=== PATIENT | female | born 1935 | race Caucasian/White ===

== ENCOUNTER 2017-10-29 19:59 | Inpatient (IN) | payer MEDICARE ==
[~2017-10-29 19:59] MED LIST: ISOVUE-370 76%-LOCM 1 ML ONE
[2017-10-29 21:02] LABS: #Eosinphils 0.1 thou/uL (0.0-0.7); #Lymphocytes 1.4 thou/uL (1.20-3.40); #Monocytes 0.7 thou/uL (0.11-0.59); #Neutrophils 8.7 thou/uL (1.40-6.50); %Basophils 0.2 % (0.0-1.0); %Eosinophils 0.7 % (0.0-10.0); %Monocytes 6.1 % (0.0-10.0); Mean Corpuscular HGB CONC 32.5 g/dL (32.0-36.0); Mean Corpuscular Volume 89.2 fl (81.0-99.0); Mean Platelet Volume 7.6 fL (7.4-10.4); Platelet Count 337 thou/uL (130-400); RBC Distribution Width 11.7 % (11.5-14.5); Red Blood Cell (RBC) Count 5.52 mill/uL (4.20-5.40); White Blood Cell (WBC) Count 10.9 thou/uL (4.8-10.8)
[2017-10-29] MEDS ORDERED: Diltiazem 125 MG in Sodium Chloride 0.9% 100 ML IVPB SCH (21:15)
[2017-10-29 21:16] LABS: ALT (SGPT) 17 U/L (8-55); AST (SGOT) 25 U/L (5-34); Albumin 4.9 g/dL (3.4-4.8); Alkaline Phosphatase 136 U/L (40-150); Anion Gap 17 mmol/L (10-20); BUN (Urea Nitrogen) 11 mg/dL (9.8-20.1); Bilirubin, Total 0.4 mg/dL (0.2-1.2); CK (CPK) 46 U/L (29-168); Calc. Creatinine Clearance 0 mL/min (70-130); Calcium 9.7 mg/dL (7.8-10.44); Carbon Dioxide 30 mmol/L (23-31); Chloride 95 mmol/L (98-107); Estimated GFR-MDRD 79; Globulin 4.1 g/dL (2.4-3.5); Glucose 131 mg/dL (83-110); Potassium 3.2 mmol/L (3.5-5.1); Sodium 139 mmol/L (136-145)
[2017-10-29 21:19] LABS: CKMB 0.7 ng/mL (0-6.6); INR-International Normal Ratio 1.6; PTT 31.1 SEC (22.9-36.1); Prothrombin Time 19.7 SEC (12.0-14.7); Troponin I Less than 0.010 ng/mL (< 0.028)
[2017-10-29 21:24] LABS: Bilirubin Negative (Negative); Blood, Urine Negative (Negative); Clarity CLEAR (Clear); Glucose, Urine (Dipstick) Negative (Negative); Leukocyte Negative (Negative); Nitrite Negative (Negative); Protein, Urine (Dipstick) 30 mg/dL (Neg-Trace); Specific Gravity, Urine 1.015 (1.002-1.036); Urobilinogen 0.2 mg/dL (0.2-1.0); pH, Urine 7.5 (5.0-9.0)
[2017-10-29] MEDS ORDERED: Diltiazem 125 MG/25 ML ONE (21:24)
[2017-10-29 21:27] LABS: Bacteria/HPF None Seen HPF (None Seen); Hyaline Casts/LPF 0-3 HYALINE CAST LPF (0-3 Hyaline); RBC/HPF 0-3 HPF (0-3); Squamous Epithelial 0-3 HPF (0-3); WBC/HPF 0-3 HPF (0-3)
--- NOTE | 2017-10-29 21:33 | CT ---
CT OF THE BRAIN WITHOUT CONTRAST: Comparison: None. History: Facial drooping. Technique: Multiple contiguous axial images were obtained in a CT of the brain without contrast. FINDINGS: There is encephalomalacia in the right frontal lobe. There are scattered hypodensities in the subcort ical and periventricular white matter, likely secondary to small vessel ischemic disease. Encephaloma lacia is also seen in the right cerebellar hemisphere. No new large confluent infarction is seen. The re is no evidence of hydrocephalus, intracranial hemorrhage, or extraaxial fluid collection. Post-surgical changes are seen in the right frontal calvarium. The paranasal sinuses and mastoid air cells are well aerated. IMPRESSION: Multifocal areas of encephalomalacia and small vessel ischemic disease without acute intracranial abn ormality. Dr. Rushing notified of the findings at 8:12 p.m. on 10-29-17. POS: [facility]
[2017-10-29] MEDS ORDERED: Aspirin 325 MG TAB ONE (21:42)
--- NOTE | 2017-10-29 21:47 | CT ---
CTA OF THE NECK WITH CONTRAST CTA OF THE HEAD WITH CONTRAST: History: Facial drooping, difficulty speaking. Technique: 1. Multiple contiguous axial images were obtained in a CTA of the neck with contrast. 3D sagittal and coronal MIP reformats were performed. 2. Multiple contiguous axial images were obtained in a CTA of the head with contrast. 3D sagittal and coronal MIP reformats were performed. FINDINGS: CTA NECK: The lung apices are unremarkable. No mucosal abnormality is visualized. No cervical adenopathy is see n. Degenerative changes are seen in the spine. There is atherosclerotic disease in the aortic arch. Both common carotid arteries have a normal origi n from the aortic arch. The subclavian arteries show mild atherosclerotic disease. The common carotid arteries show no significant atherosclerotic disease. There is a moderate calcified plaque in the proximal aspect of both internal carotid arteries. Estima digna stenosis is approximately 60-70% bilaterally per NASCET criteria. This occurs over a length of ap proximately 1.5 cm bilaterally. The distal aspect of the internal carotid artery shows no significant atherosclerotic disease. Both vertebral arteries are patent without significant atherosclerotic disease. CTA HEAD: Moderate diffuse nonfocal atherosclerotic disease is seen in the cavernous portion of the internal ca rotid arteries. The intracranial internal carotid arteries are normal in caliber and branch into norm al appearing anterior and middle cerebral arteries. There is no evidence of aneursysmal dilatation, f ocal stenosis, or occlusion in the anterior circulation. A right posterior communicating artery is se en. Both vertebral arteries, normal appearing basilar artery. The posterior cerebral artery and cerebella r arteries are patent. There is no evidence of aneurysmal dilatation, focal occlusion in the posterio r circulation. IMPRESSION: 1. Approximately 60-70% stenosis of the bilateral internal carotid arteries in the neck. 2. No evidence of occlusion or significant intracranial arterial abnormality. Dr. Blas notified of the findings at 8:36 p.m. on 10-29-17. POS: [facility]
[2017-10-29] MEDS ORDERED: Magnesium Sulfate 2 GM/100 ML BAG ONE (22:22)
[2017-10-29] MEDS ORDERED: Labetalol HCl 100 MG/20 ML VIAL SLOW IVP PRN (22:27)
[2017-10-29] MEDS ORDERED: hydrALAZINE 20 MG/ML VIAL SLOW IVP PRN (22:27)
--- NOTE | 2017-10-29 22:33 | PDOC.FPRHP ---
- History of Present Illness Chief Complaint: Change in mental status History of Present Illness: 82 yo F w/hx of previous CVA, ICH 2/2 fall, HTN, afib, dementia, hld here with complaint by family of change in mental status. Per daughter in law, she had a normal day and was at her baseline A&O x2. When it was time for her evening meds , the daughter in law noticed that she was acting confused. Over the course of a few minutes the patient became less responsive and eventually would not respond to questioning and commands. At baseline pt has no deficits from previous CVA. She can walk, feed herself, and hold a normal conversation. Family denies facial droop, hemiparesis, seizure, LOC. In the ED, initial concern was for CVA or repeat bleed given hx. CT brain and CTA were negative. Although the patient arrived to the ED within the window for TPA, she was not a candidate dt recent hx of ICH. She was aphasic when evaluated by the ED and would make little attempt to follow commands. Upon eval by admitting team, pt was A&O x2 and could cooperate with exam. Also in the ED it was noted pt was in afib w/RVR. She was started on dilt drip and had controlled rate prior to moving to IMCU - Allergies/Adverse Reactions Allergies Allergy/AdvReac Type Severity Reaction Status Date / Time codeine Allergy Verified 10/30/17 01:58 - Home Medications Medication Instructions Recorded Confirmed Type Amlodipine [Norvasc] 1 tab PO DAILY 10/30/17 10/30/17 History Atorvastatin Calcium [Lipitor] 1 tab PO DAILY 10/30/17 10/30/17 History Donepezil HCl 1 tab PO DAILY 10/30/17 10/30/17 History Pantoprazole Sodium 20 mg PO DAILY 10/30/17 10/30/17 History Sotalol HCl [Sotalol] 0.5 tab PO BID 10/30/17 10/30/17 History Warfarin Sodium 1 tab PO SEEPHYS 10/30/17 10/30/17 History levETIRAcetam [Levetiracetam] 1 tab PO BID 10/30/17 10/30/17 History Comments: Warfarin schedule 2mg Mon, Tues, Thurs 1mg Wed, Fri, Sat, Sun All meds per family - History PMHx: CVA ICH HTN afib w/RVR HLD Dementia Seizure PSHx: Unk FHx: Unk Social: Previous smoker, unknown duration Denies etoh or recreational drugs - Review of Systems ROS unobtainable: other (Provided by pt and family) General: denies: fever/chills, weight/appetite/sleep changes Eyes: denies: vision changes ENT: denies: nasal congestion Respiratory: denies: cough, congestion, shortness of breath Cardiovascular: denies: chest pain, palpitation, edema Gastrointestinal: denies: nausea, vomiting, diarrhea, constipation Genitourinary: denies: incontinence, dysuria Skin: denies: rashes, lesions Musculoskeletal: denies: pain, tenderness, swelling Neurological: reports: other (decreased metal status). denies: numbness, syncope, seizure, weakness Psychological: denies: anxiety, depression - Vital signs BP: 104/69 HR: 65 RR: 13 Tmax: 98.4 Pox: 99% on 2L Wt: 55 kg FMR H&P: Results - Labs Result Diagrams: 10/30/17 02:19 10/30/17 02:19 Lab results: WBC 10.9 thou/uL (4.8-10.8) H 10/29/17 20:51 Hgb 16.0 g/dL (12.0-16.0) 10/29/17 20:51 Hct 49.2 % (36.0-47.0) H 10/29/17 20:51 MCV 89.2 fl (81.0-99.0) 10/29/17 20:51 Plt Count 337 thou/uL (130-400) 10/29/17 20:51 Neutrophils % 80.0 % (42.0-75.0) H 10/29/17 20:51 Sodium 139 mmol/L (136-145) 10/29/17 20:51 Potassium 3.2 mmol/L (3.5-5.1) L 10/29/17 20:51 Chloride 95 mmol/L (98-107) L 10/29/17 20:51 Carbon Dioxide 30 mmol/L (23-31) 10/29/17 20:51 BUN 11 mg/dL (9.8-20.1) 10/29/17 20:51 Creatinine 0.71 mg/dL (0.6-1.1) 10/29/17 20:51 Glucose 131 mg/dL (83-110) H 10/29/17 20:51 Calcium 9.7 mg/dL (7.8-10.44) 10/29/17 20:51 Total Bilirubin 0.4 mg/dL (0.2-1.2) 10/29/17 20:51 AST 25 U/L (5-34) 10/29/17 20:51 ALT 17 U/L (8-55) 10/29/17 20:51 Alkaline Phosphatase 136 U/L (40-150) 10/29/17 20:51 Creatine Kinase 46 U/L (29-168) 10/29/17 20:51 CK-MB (CK-2) 0.7 ng/mL (0-6.6) 10/29/17 20:51 Serum Total Protein 9.0 g/dL (6.0-8.3) H 10/29/17 20:51 Albumin 4.9 g/dL (3.4-4.8) H 10/29/17 20:51 Urine Ketones Negative mg/dL (Negative) 10/29/17 21:12 Urine Blood Negative (Negative) 10/29/17 21:12 Urine Nitrite Negative (Negative) 10/29/17 21:12 Ur Leukocyte Esterase Negative (Negative) 10/29/17 21:12 Urine RBC 0-3 HPF (0-3) 10/29/17 21:12 Urine WBC 0-3 HPF (0-3) 10/29/17 21:12 Ur Squamous Epith Cells 0-3 HPF (0-3) 10/29/17 21:12 Urine Bacteria None Seen HPF (None Seen) 10/29/17 21:12 - EKG Interpretation EKG: Afib w/RVR. No ST changes. - Radiology Interpretation CT scan - head Status: report reviewed by me (multifocal areas of encephalomalacia. no acute abnormality CTA: 60-70% stenosis ICA. No acute abnormality) Chest x-ray Status: report reviewed by me (cardiomegally. Small L pleural effusion.) FMR H&P: A/P - Problem List (1) TIA (transient ischemic attack) Current Visit: No Status: Acute Priority: High (2) Altered mental status Current Visit: No Status: Acute Priority: High Code(s): R41.82 - ALTERED MENTAL STATUS, UNSPECIFIED Qualifiers: Altered mental status type: delirium Qualified Code(s): R41.0 - Disorientation, unspecified (3) Atrial fibrillation with RVR Current Visit: No Status: Acute Priority: High Code(s): I48.91 - UNSPECIFIED ATRIAL FIBRILLATION (4) Dementia Current Visit: No Status: Chronic Priority: Medium Code(s): F03.90 - UNSPECIFIED DEMENTIA WITHOUT BEHAVIORAL DISTURBANCE Qualifiers: Dementia type: unspecified type (5) HLD (hyperlipidemia) Current Visit: No Status: Chronic Priority: Low Code(s): E78.5 - HYPERLIPIDEMIA, UNSPECIFIED (6) HTN (hypertension) Current Visit: No Status: Chronic Priority: Medium Code(s): I10 - ESSENTIAL (PRIMARY) HYPERTENSION (7) Focal seizure Current Visit: No Status: Acute - Plan Altered mental status - most likely associated with TIA vs CVA - work to rule out infectious or endocrine source. CXR pending. TSH pending. Keppra level pending - Low concern for toxic or neoplastic source - admit to stroke - consult neuro in am, ST, PT, OT - hold warfarin - increase lipitor to 40 mg daily - permissive HTN - MRI in am afib w/RVR - continue dilt drip. pt likely a poor candidate for rhythm control. Work to control w/PO meds HTN - permissive HTN for 24 hours, then restart home meds Dementia - continue home meds Seizures - unclear when these started. Continue home keppra - keppra level pending - mri as above HLD - start statin as above Code DNR Diet Regular pending ST eval PPx SCD Dispo: Guarded. Pt is currently stable, continue to work to ID source of change. Likely LOS 48-72 hours FMR H&P: Upper Level - Pertinent history CC: Impaired speech 82 year old white female with a past medical history of CVA and seizures presents for impaired speech starting today at approximately 1700 to 1730. She was at home with her son's significant other who states Mrs. Kessler was sitting at the table when she noticed she was sitting very still and not talking. When she asked Mrs. Kessler to talk to her, she responded, and she was able to walk maybe 20 feet when asked. Shortly after sitting down, she seemed to stop moving again per son's SO. Family noticed no facial droop, unilateral weakness, or tonic clonic activity. They state she has been in her normal state of health recently. PMHx - CVA x4 in the last 18 months, history of intracranial bleed, seizure disorder, dementia (A&O x person and place at baseline per family), HLD, respiratory failure, hypertension, and atrial fibrillation with rapid ventricular response - Pertinent findings Vital Signs: Tmax 98.3 RR 22 HR 114 BP 147/75 O2 sats 99% on 1L Weight 54.4 Physical Exam: General: NAD, AAxOx person and place Eyes: EOMI, Right pupil fixed (chronic per family), nonicteric, conjunctiva clear ENT: MMM, oropharynx clear CV: Tachycardic, irregular rhythm., no m/r/g. Pulses full and equal in all 4 extremities Respiratory: CTA-B, no WRR. Nonlabored Abdomen: NT, ND, no guarding/rebound Extremities: No edema, equal movements bilaterally Skin: No rash or ulcer, no palpable lesions Neuro: CN II-XII intact. No focal deficits. Muscle strength 5/5 in all 4 extremities - Plan Date/Time: 10/29/172231 I, Jose Giordano DO, have evaluated this patient and agree with findings/plan as outlined by college intern resident. Pertinent changes/additions are listed here. 82 year old white female presents for: 1) Suspected TIA vs CVA - Admit to stroke. Etiology unclear, but differential includes TIA/CVA and seizures, no evidence of infection at this time, and will need further workup. Admit to stroke unit. Consult PT, ST, OT, and neuro. Plan for permissive hypertension. Patient is oriented to person and place which is her baseline. MRI in the morning 2)Atrial fibrillation with RVR - On Diltiazem drip. Place on telemetry. Patient has chronic atrial fibrillation 3) Focal seizure - When I went back into the ER room to get her med list after initially seeing her, she did appear to be having a focal seizure of the left lower arm. Dr. Blas ordered Ativan and iv Keppra. Seizure precautions. Check Keppra level. MRI tomorrow. Consult neuro 4) History of seizures - iv Keppra. Seizure precautions 5) HLD - Home statin when cleared for po 6) Dementia - Home donepezil and memantine when cleared for po 7) Code Status - DNR-DNI. I spoke with the patient's son regarding her code status. He stated she is DNR-DNI as they want nothing invasive done and for her to be allowed to pass peacefully if her condition advances to that point. Dr. Camargo was present for this conversation. Attending Addendum - Attending Addendum Date/Time: 10/30/17 3893 I personally evaluated the patient and discussed the management with Dr. Camargo on 10/29/17. I agree with the History, Examination, Assessment and Plan documented above with any addition or exceptions noted below- 82 yo F w/hx of previous CVA, ICH 2 /2 fall, HTN, afib, dementia here with complaint by family of change in mental status. Per daughter in law, she had a normal day and was at her baseline A&O x2. When it was time for her evening meds, the daughter in law noticed that she was acting confused. Over the course of a few minutes the patient became less responsive and eventually would not respond to questioning and commands. At baseline pt has no deficits from previous CVA. She can walk, feed herself, and hold a normal conversation. Family denies facial droop, hemiparesis, seizure, LOC. In ER, patient initially was aphasic but then was able to speak normally and answer questions. While in ER, patient noted to have focal seizure involving her left arm, given ativan. Patient then noted to be less responsive and had weakness on left side. Repeat CT head performed and negative for acute findings. PMH/PSH/All/Meds/SH reviewed and agree with resident's documentation. Afebrile P125 BP 137/71 Exam repeated by me- patient arouses to painful stimuli but drifts back to sleep. No tremors/seizures noted. Withdraws extremities to pain. A/P: 1) Altered MS- possible TIA/CVA versus seizure- initial CT scans negative for acute findings. PT/OT/ST consults. Consult neurology. 2) A-fib with RVR- continue diltiazem drip. 3) Seizure- continue keppra .
[2017-10-29] MEDS ORDERED: Magnesium Sulfate 3 GM in Sodium Chloride 0.9% 100 ML IVPB SCH (22:45)
[2017-10-29] MEDS ORDERED: Potassium Chloride 40 MEQ in Sodium Chloride 0.9% 500 ML IVPB SCH (22:45)
[2017-10-29] MEDS ORDERED: Lorazepam 2 MG/ML VIAL ONE (22:46)
--- NOTE | 2017-10-29 23:02 | RAD ---
SINGLE VIEW OF THE CHEST: Comparison: None. History: Difficulty talking and speaking for 1.5 hours prior to arrival. FINDINGS: Single view of the chest shows an enlarged cardiomediastinal silhouette with atherosclerotic calcific ations in the aorta. There is no evidence of consolidation. There may be a small left pleural effusio n. A calcified granuloma projects over the right lateral thorax. IMPRESSION: 1. Cardiomegaly. 2. Possible small left pleural effusion. POS: [facility]
[2017-10-29] MEDS ORDERED: levETIRAcetam In NaCl (Iso-Os) 1,000 MG in Premix Bag 1 BAG IVPB SCH (23:15)
[2017-10-30 00:05] LABS: Troponin I 0.012 ng/mL (< 0.028)
[2017-10-30 01:58] VITALS: BMI 19.6
[2017-10-30 02:39] LABS: Hemoglobin 14.7 g/dL (12.0-16.0); Mean Corpuscular HGB CONC 33.2 g/dL (32.0-36.0); Mean Corpuscular Hemoglobin 29.7 pg (27.0-31.0); Mean Corpuscular Volume 89.4 fl (81.0-99.0); Mean Platelet Volume 7.6 fL (7.4-10.4); Platelet Count 284 thou/uL (130-400); RBC Distribution Width 11.7 % (11.5-14.5); Red Blood Cell (RBC) Count 4.95 mill/uL (4.20-5.40); White Blood Cell (WBC) Count 11.5 thou/uL (4.8-10.8)
[2017-10-30 02:40] LABS: Band 7 % (5-11); Lymphocytes 9 % (21-51); MDiff Complete? YES; Monocytes 6 % (0-10); Neutrophil 78 % (42-75)
[2017-10-30] MEDS: Sodium Chloride 0.9% 1,000 ML IV SCH ×2 (02:41→12:19)
[2017-10-30 02:46] LABS: Troponin I 0.016 ng/mL (< 0.028)
[2017-10-30 02:50] LABS: Anion Gap 15 mmol/L (10-20); BUN (Urea Nitrogen) 10 mg/dL (9.8-20.1); Calc. Creatinine Clearance 56 mL/min (70-130); Carbon Dioxide 30 mmol/L (23-31); Cardiac Risk 2.8 (Less than 4.5); Chloride 97 mmol/L (98-107); Cholesterol 162 mg/dl (< 200 Desired); Estimated GFR-MDRD 90; Glucose 134 mg/dL (83-110); HDL Cholesterol 57 mg/dL (>60 Neg Risk); LDL Cholesterol, Calculated 95 mg/dL; Potassium 3.2 mmol/L (3.5-5.1); Sodium 139 mmol/L (136-145); Triglycerides 48 mg/dL (Less than 150)
--- NOTE | 2017-10-30 06:06 | CT ---
CT BRAIN WITHOUT CONTRAST: HISTORY: Altered mental status with initial improvement in symptoms but these symptoms are now worsening. Lef t hand weakness on exam. COMPARISON: 10/29/2017 at 8:09 p.m. TECHNIQUE: Multiple contiguous axial images were obtained in a CT of the brain without contrast. FINDINGS: There are scattered hypodensities in the subcortical and periventricular white matter, likely seconda ry to small vessel ischemic disease. There are stable areas of encephalomalacia in the brain. There is no evidence of hydrocephalus, intracranial hemorrhage, or extraaxial fluid collections. Post surgical changes are seen in the right frontal calvarium. The paranasal sinuses and mastoid air cells are well aerated. IMPRESSION: 1. No evidence of acute intracranial abnormality. 2. Small vessel ischemic disease. POS: [facility]
--- NOTE | 2017-10-30 07:06 | PDOC.FM ---
- Subjective Subjective: No adverse events overnight. Pt follows commands. Alert and oriented to person only. - Objective MAR Reviewed: Yes Vital Signs & Weight: Vital Signs (12 hours) Temp Pulse Resp BP BP Pulse Ox 10/30/17 02:00 98.3 F 88 16 110/40 L 98 10/30/17 01:30 98.3 F 81 16 100/54 L 98 Weight Weight 51.982 kg Result Diagrams: 10/30/17 02:19 10/30/17 02:19 <Crys Fong C - Last Filed: 10/30/17 10:40> - Objective Vital Signs & Weight: Vital Signs (12 hours) Temp Pulse Resp BP BP BP BP 10/30/17 11:01 97.9 F 79 17 129/64 10/30/17 08:05 121/65 10/30/17 07:40 98.5 F 88 16 10/30/17 07:23 98.5 F 88 16 125/60 10/30/17 05:00 98.3 F 84 16 118/63 10/30/17 02:30 98.3 F 88 16 10/30/17 02:00 98.3 F 88 16 110/40 L 10/30/17 01:30 98.3 F 81 16 100/54 L Pulse Ox Pulse Ox 10/30/17 11:01 98 10/30/17 08:05 98 10/30/17 07:40 100 10/30/17 07:23 99 10/30/17 05:00 98 10/30/17 02:30 98 10/30/17 02:00 98 10/30/17 01:30 98 Weight Weight 51.982 kg I&O: 10/29/17 10/30/17 10/31/17 06:59 06:59 06:59 Intake Total 620 Output Total 350 Balance 270 Result Diagrams: 10/30/17 02:19 10/30/17 02:19 <Leobardo Stallworth - Last Filed: 10/30/17 11:48> Phys Exam - Physical Examination Constitutional: NAD HEENT: oral pharynx no lesions Respiratory: clear to auscultation bilateral Cardiovascular: RRR Gastrointestinal: soft, non-tender Musculoskeletal: no edema Neurological: moves all 4 limbs Psychiatric: normal affect <Crys Fong - Last Filed: 10/30/17 10:40> Dx/Plan (1) Atrial fibrillation with RVR Code(s): I48.91 - UNSPECIFIED ATRIAL FIBRILLATION Status: Acute (2) Focal seizure Status: Acute (3) TIA (transient ischemic attack) Status: Acute (4) Dementia Code(s): F03.90 - UNSPECIFIED DEMENTIA WITHOUT BEHAVIORAL DISTURBANCE Status: Chronic QualifierTitle: Dementia type: unspecified type (5) HLD (hyperlipidemia) Code(s): E78.5 - HYPERLIPIDEMIA, UNSPECIFIED Status: Chronic (6) HTN (hypertension) Code(s): I10 - ESSENTIAL (PRIMARY) HYPERTENSION Status: Chronic - Plan Plan: TIA vs CVA - CT head negative - CT neck shows bilateral stenosis of ICA - MRI pending - neuro consulted and recommendations are appreciated. - PT/OT/Speech recs pending. Focal seizure - pt received 1g of Keppra and Ativan in ED. - will consult neuro for recommendations. Atrial fibrillation with RVR - Currently on dilt drip at 7.5. Will attempt to wean down to lowest possible rate while pt is NPO. - Consider increasing Sotalol for rate control when pt passes swallow study Hypertension - BP stable. - will restart home antihypertensives when pt passes swallow study Hyperlipidemia -will restart Lipitor Seizure disorder - will restart home Keppra when pt passes swallow study. Disposition: stable, will transfer to stroke unit. <Crys Fong - Last Filed: 10/30/17 10:40> Attending Addendum - Attending Addendum Date/Time: 10/30/17 [id number] I personally evaluated the patient and discussed the management with Dr. Fong. I agree with the History, Examination, Assessment and Plan documented above with any addition or exceptions noted below. Patient currently A&Ox1 but very alert, unsure of what her baseline mentation is. She is not requiring IMCU care and will transfer to stroke unit. Last NIH scale was 5, and I see not evidence of major facial droop on my exam. Await MRI and Neuro recs. She continues on Dilt drip and we will work to attempt transition back to oral Sotalol once she is safe to swallow as cleared by [employer]. Continue Keppra for seizure ppx as she has a history of that. <Leobardo Stallworth - Last Filed: 10/30/17 11:48>
[2017-10-30] MEDS ORDERED: Sotalol HCl 80 MG TAB PO SCH (09:00)
[2017-10-30] MEDS ORDERED: levETIRAcetam 500 MG TAB PO SCH (09:00)
--- NOTE | 2017-10-30 09:11 | CON ---
DATE OF CONSULTATION: 10/30/2017 REASON FOR CONSULTATION: [facility] [place]. Seventy minutes time was spent on this patient, of the time greater than 50% was spent either with the patient or on the patient's floor. HISTORY OF PRESENT ILLNESS: The patient is an 82-year-old female who presented with altered mental status. It was thought that she might have a new stroke. Apparently, CT of the brain, CT angiogram of the brain were negative. She also had atrial fibrillation with rapid ventricular response and was placed on a Cardizem drip. PAST MEDICAL HISTORY: 1. Stroke. 2. Intracranial hemorrhage. 3. Hypertension. 4. Atrial fibrillation. 5. Hyperlipidemia. 6. Dementia. 7. Seizure. PAST SURGICAL HISTORY: None. FAMILY MEDICAL HISTORY: Unknown. SOCIAL HISTORY: Previous smoker, does not consume alcohol or use illicit drugs. MEDICATIONS: Warfarin, amlodipine, atorvastatin, Aricept, Protonix, sotalol, Levetiracetam. REVIEW OF SYSTEMS: Unobtainable secondary to altered mental status. PHYSICAL EXAMINATION: VITAL SIGNS: Temperature 98.5, pulse 88, respiration 16, O2 sat 100%, blood pressure 120/60. HEENT: Unremarkable. NECK: No JVD. LUNGS: Clear without wheezing. CARDIAC: S1, S2 irregularly irregular. ABDOMEN: Soft, nontender. EXTREMITIES: No clubbing, cyanosis, or edema. LABORATORY DATA: White blood cell count 11.5, hematocrit 44.2, platelet count 294,000. Sodium 139, potassium 3.2, chloride 97, CO2 30, BUN 10, creatinine 0.6 , glucose 134. Chest x-ray shows no acute mass, effusion. The x-ray is turned. ASSESSMENT: 1. Altered mental status - probably multifactorial. 2. Atrial fibrillation. 3. History of previous stroke. PLAN: She can probably be transferred out to the telemetry unit or stroke unit. Further workup consisting of an MRI will take place today in regards to the stroke, no acute pulmonary needs identified. 70 min time was spent on this consult. Of that time, >50% was spent with the patient and/or on the patients unit. [facility]
[2017-10-30] MEDS ORDERED: Enoxaparin Sodium 40 MG/0.4 ML SYRINGE SC SCH (11:45)
[2017-10-30] MEDS: Donepezil HCl 10 MG TAB PO SCH (11:58)
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
--- NOTE | 2017-10-30 19:24 | CON ---
DATE OF CONSULTATION: 10/30/2017 CONSULTING PHYSICIAN: Hospitalist Service. IMPRESSION: 1. 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 2. Prior ischemic injury in the right hemisphere. 3. Atrial fibrillation. 4. Mild dementia. PLAN: 1. Increase Keppra to 1000 mg twice a day. 2. Office followup. HISTORY OF PRESENT ILLNESS: Ms. Kessler is an 82-year-old white female who lives at home independentl y. She has some family that lives with her. She was witnessed to have a blank staring episode where she would not respond. She does not really recall what happened to her. She awoke from the event w ithout any new focal deficit. She had no significant residual neurologic deficits from her prior rig ht hemispheric strokes. Her MRI of the brain showed evidence of the old strokes, but nothing acute. CTA showed bilateral 60%-70% carotid stenosis. EKG showed atrial fibrillation. She has been on Cou madin prior to admission. She was on Keppra 750 mg twice a day. PAST MEDICAL HISTORY: As noted above. ALLERGIES: CODEINE. SOCIAL HISTORY: No tobacco or alcohol use. FAMILY HISTORY: Noncontributory. REVIEW OF SYSTEMS: No complaint of headache, nausea, vomiting, vertigo, chest pain, shortness of venice ath, or confusion. PHYSICAL EXAMINATION: GENERAL: Somewhat frail appearing elderly lady, lying in bed, in no distress. VITAL SIGNS: Stable. She is afebrile. HEENT: Pupils equal. Conjunctivae clear. Oropharynx clear. Cranium normocephalic and atraumatic. NECK: Supple. EXTREMITIES: No cyanosis, clubbing or edema. NEUROLOGIC: She is alert and cooperative. Her speech is fluent and clear. Cranial nerves II-XII ar e intact. Motor exam showed a very subtle left-sided weakness on rapid alternating movements. Sensa tion was intact to light touch. Cerebellar testing showed normal finger to nose movements. Plantar response was downgoing on the right and upgoing on the left. SUMMARY: This is an elderly lady with a known prior cortical stroke and secondary seizures. The danielle nts that transpired consistent with focal seizure. There is no evidence of an acute change on MRI. I will be happy to follow up with her as an outpatient.
[2017-10-30] MEDS ORDERED: Atorvastatin Calcium 40 MG TAB PO SCH (21:00)
[2017-10-30] MEDS: levETIRAcetam 500 MG TAB PO SCH (21:23)
[2017-10-30] MEDS: Sotalol HCl 80 MG TAB PO SCH (21:23)
[2017-10-31] MEDS ORDERED: Warfarin Sodium 2 MG TAB PO SCH ×2 (08:00→08:30)
--- NOTE | 2017-10-31 08:54 | PDOC.FM ---
- Subjective Subjective: Patient doing well with no complaints. Pt noted to have several pauses on telemetry this morning. She is asymptomatic. - Objective MAR Reviewed: Yes Vital Signs & Weight: Vital Signs (12 hours) Temp Pulse Resp BP BP Pulse Ox 10/31/17 07:30 97.6 F 95 17 130/79 90 L 10/31/17 05:12 95 10/31/17 04:00 99.0 F 18 104/58 L 94 L 10/31/17 00:00 98.5 F 61 19 130/73 99 10/30/17 21:23 98.9 F 55 L 18 127/59 L 127/59 L 96 Weight Admit Weight 51.71 kg Weight 51.982 kg I&O: 10/30/17 10/31/17 11/01/17 06:59 06:59 06:59 Intake Total 620 1203.7 Output Total 350 1025 Balance 270 178.7 Result Diagrams: 10/30/17 02:19 10/30/17 02:19 <Crys Fong C - Last Filed: 10/31/17 08:50> - Objective Vital Signs & Weight: Vital Signs (12 hours) Temp Pulse Resp BP Pulse Ox 10/31/17 09:23 95 10/31/17 09:09 95 10/31/17 08:00 97.6 F 95 17 10/31/17 07:30 97.6 F 95 17 130/79 90 L 10/31/17 05:12 95 10/31/17 04:00 99.0 F 18 104/58 L 94 L 10/31/17 00:00 98.5 F 61 19 130/73 99 Weight Admit Weight 51.71 kg Weight 51.982 kg I&O: 10/30/17 10/31/17 11/01/17 06:59 06:59 06:59 Intake Total 620 1203.7 Output Total 350 1025 Balance 270 178.7 Result Diagrams: 10/30/17 02:19 10/30/17 02:19 <Leobardo Stallworth R - Last Filed: 10/31/17 10:07> Phys Exam - Physical Examination Constitutional: NAD Respiratory: clear to auscultation bilateral Cardiovascular: RRR Gastrointestinal: soft, non-tender Musculoskeletal: no edema Neurological: moves all 4 limbs Psychiatric: normal affect <Crys Fong - Last Filed: 10/31/17 08:50> Dx/Plan (1) Atrial fibrillation with RVR Code(s): I48.91 - UNSPECIFIED ATRIAL FIBRILLATION Status: Resolved (2) Focal seizure Status: Acute (3) TIA (transient ischemic attack) Status: Acute (4) Dementia Code(s): F03.90 - UNSPECIFIED DEMENTIA WITHOUT BEHAVIORAL DISTURBANCE Status: Chronic QualifierTitle: Dementia type: unspecified type (5) HLD (hyperlipidemia) Code(s): E78.5 - HYPERLIPIDEMIA, UNSPECIFIED Status: Chronic (6) HTN (hypertension) Code(s): I10 - ESSENTIAL (PRIMARY) HYPERTENSION Status: Chronic - Plan Plan: 1. Atrial flutter with RVR. - Sotalol increased to 80 mg yesterday. - she alternates between sinus rhythm and flutter and has had several 2-3 second pauses. - will discuss current Sotalol regimen with Cardiology. - Continue Warfarin. 2. Focal Seizure - No further seizure episodes - Continue Keppra - no evidence of acute stroke on CT/MRI 3. Hypertension - BP stable. 4. Dementia - Pt is back to baseline - Continue Aricept. 5. Hyperlipidemia - continue Atorvastatin Disposition: stable, awaiting cardiology recommendations. <Crys Fong - Last Filed: 10/31/17 08:50> Attending Addendum - Attending Addendum Date/Time: 10/31/17 1005 I personally evaluated the patient and discussed the management with Dr. Fong. I agree with the History, Examination, Assessment and Plan documented above with any addition or exceptions noted below. Patient back to baseline from mentation standpoint. MRI negative for new infarct , and Neuro believes event was seizure related. Increased Keppra. Patient better rate controlled on Sotalol 80mg BID, but began having 2-3sec pauses overnight. Will back off dosage and consult EP as she is not a candidate for higher medication dose but is not controlled on the lower dose. She is now in Aflutter with rates in the 120s. Resume warfarin. <Leobardo Stallworth - Last Filed: 10/31/17 10:07>
[2017-10-31] MEDS ORDERED: Atorvastatin Calcium 20 MG TAB PO SCH ×2 (09:00)
[2017-10-31] MEDS ORDERED: Amlodipine 10 MG TAB PO SCH ×2 (09:00)
[2017-10-31] MEDS ORDERED: Sotalol HCl 80 MG TAB PO SCH (09:00)
[2017-10-31 09:02] LABS: INR-International Normal Ratio 1.4; PTT 29.7 SEC (22.9-36.1); Prothrombin Time 17.9 SEC (12.0-14.7)
[2017-10-31] MEDS: levETIRAcetam 500 MG TAB PO SCH (09:08)
[2017-10-31] MEDS: Donepezil HCl 10 MG TAB PO SCH (09:09)
[2017-10-31] MEDS ORDERED: Enoxaparin Sodium 40 MG/0.4 ML SYRINGE SC SCH (09:15)
[2017-10-31] MEDS: Sotalol HCl 80 MG TAB PO SCH (09:23)
--- NOTE | 2017-10-31 13:25 | PQF ---
DATE: 10-31-17 ATTN : DR. JOANNE MCNULTY Please exercise your independent, professional judgment in responding to the clarification form. Clinical indicators are provided on the bottom of this form for your review Please check appropriate box(s): [ ] Encephalopathy: Type: [ ] Acute [ ] Subacute [ ] Chronic Etiology: [ ] Metabolic [ ] Toxic [ ] Transient Alteration of Awareness [ X ] Other diagnosis _focal seizure with post-ictal state [ ] Unable to determine In addition, please specify: Present on Admission (POA): [ X ] Yes [ ] No [ ] Unable to determine For continuity of documentation, please document condition throughout progress notes and discharge summary. Thank You. CLINICAL INDICATORS - SIGNS / SYMPTOMS / LABS ER DOCUMENTATION: ER CAVEAT INVOKED DUE TO THE PATIENT WITH MENTAL STATUS CHANGES. ER DX: CVA/ISCHEMIC STROKE, A FIB W RVR, AMS, SEIZURE. H&P: DAUGHTER IN LAW NOTICED THAT SHE WAS ACTING CONFUSED, OVER THE COURSE OF A FEW MINUTES THE PATIENT BECAME LESS RESPONSIVE AND EVENTUALLY WOULD NOT RESPOND TO QUESTIONING AND COMMANDS. AT BASELINE PT HAS NO DEFICITS FROM PREVIOUS CVA. SHE CAN WALK, FEED HERSELF, AND HOLD NORMAL CONVERSATION. SHE WAS APHASIC WHEN EVALUATED BY THE ED AND WOULD MAKE LITTLE ATTEMPT TO FOLLOW COMMANDS. PN 10-30-17: ALERT AND ORIENTED TO PERSON ONLY. RISK FACTORS: H&P: HX OF CVA, ICH 2/2 FALL, HTN, A FIB, DEMENTIA, TREATMENTS: NEURO CONSULT O2 USE (ER) POTASSIUM, MAGNESIUM (MAR) IVF (This form is maintained as a part of the permanent medical record) 2014 [employer]. All Rights Reserved [facility]
[2017-10-31 15:40] VITALS: BP 108/59; TEMP 98.5
--- NOTE | 2017-10-31 15:57 | PDOC.CTH ---
<Wen Lujan - Last Filed: 10/31/17 16:04> Cardiology Progress Note - Subjective The pt seen and examined. She is agitated and pulling her gown and sheath. per family, the pt does not wish any intervention, medical treatment only. - Objective Vital Signs Temp Pulse Resp BP Pulse Ox 10/31/17 15:37 98.5 F 105 H 14 108/59 L 90 L 10/31/17 11:30 98.6 F 60 24 H 122/56 L 97 10/31/17 09:23 95 10/31/17 09:09 95 10/31/17 08:00 97.6 F 95 17 10/31/17 07:30 97.6 F 95 17 130/79 90 L 10/31/17 05:12 95 10/31/17 04:00 99.0 F 18 104/58 L 94 L Admit Weight 114 lb Weight 114 lb 9.6 oz 10/30/17 10/31/17 11/01/17 06:59 06:59 06:59 Intake Total 620 1203.7 Output Total 350 1025 Balance 270 178.7 - Physical Examination General/Neuro: other: (confused) Lungs: CTA, other: Heart: other: (irregular) Abdomen: soft Extremities: other: (No edema) - Telemetry Telemetry Rhythm: Afib 110-150s - Labs Result Diagrams: 10/30/17 02:19 10/30/17 02:19 Troponin/CKMB CK-MB (CK-2) 0.7 ng/mL (0-6.6) 10/29/17 20:51 Troponin I 0.016 ng/mL (< 0.028) 10/30/17 02:19 - Assessment/Plan 1. Afib with RVR - Cont. Afib with HR 110-150s with Sotalol 40mg BID and pauses with SR, longest was 4.7 sec today; Family refused any interventions, such as PM placement for pauses after the conversation about > 3 sec pauses causes brain cell damage. On Coumadin. 2. AMS - changed due to seizure; No evidence of acute stroke on CT/MRI; On Keppra; managed by PCP 3. HTN - stable 4. Hyperlipidemia - On statin 5. Hypokalemia - 40mEq IV was given on 10/30/17; Recheck BMP tomorrow 6. Dementia - Pt is back to baseline per family; On Aricept. MAR reviewed Review of Systems - Review of Systems Constitutional: reports: see HPI EENTM: reports: see HPI Respiratory: reports: see HPI Cardiac (ROS): reports: see HPI ABD/GI: reports: see HPI : reports: see HPI <Dieter Ledesma - Last Filed: 10/31/17 17:36> Cardiology Progress Note - Objective Vital Signs Temp Pulse Resp BP Pulse Ox 10/31/17 15:37 98.5 F 105 H 14 108/59 L 90 L 10/31/17 11:30 98.6 F 60 24 H 122/56 L 97 10/31/17 09:23 95 10/31/17 09:09 95 10/31/17 08:00 97.6 F 95 17 10/31/17 07:30 97.6 F 95 17 130/79 90 L Admit Weight 114 lb Weight 114 lb 9.6 oz 10/30/17 10/31/17 11/01/17 06:59 06:59 06:59 Intake Total 620 1203.7 Output Total 350 1025 Balance 270 178.7 - Labs Result Diagrams: 10/30/17 02:19 10/30/17 02:19 Troponin/CKMB CK-MB (CK-2) 0.7 ng/mL (0-6.6) 10/29/17 20:51 Troponin I 0.016 ng/mL (< 0.028) 10/30/17 02:19 - Assessment/Plan Pt. seen and eval. by me. EP has already visited with the pt. also. She nor the family want any intervention. She is DNR. They want to go home. I suggest we decrease the sotolol back to 40 mg bid, continue coumadin . I suggested they f/ u with the coumadin clinic. I agree with the A/P by the LITHOGRAPHIC PLATEMAKER. I will sign off. Will be happy to see the pt. as an outpt.
[2017-10-31] MEDS ORDERED: Warfarin Sodium 1 MG TAB PO SCH (17:00)
--- NOTE | 2017-10-31 17:22 | PDOC.EVN ---
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 I advised him that without definitive treatment, there is nothing preventing rapid ventricular rate from re-occuring. Family expressed understanding. We will discharge patient today with Sotalol 40 mg BID. They were instructed to follow-up with a primary care physician and road machine operator as soon as possible. Pt currently has subtherapeutic INR, instructed to follow-up with Coumadin clinic tomorrow as well.
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
--- NOTE | 2017-10-31 23:06 | DIS-2 ---
DATE OF ADMISSION: 10/29/2017 DATE OF DISCHARGE: 10/31/2017 ADMITTING ATTENDING: Brandy Ma M.D. DISCHARGE ATTENDING: Leobardo Stallworth M.D. RESIDENT: Crys Fong M.D., PGY2. CONSULTATIONS: 1. Geraldo Bone M.D. 2. Zarina Ledesma M.D. 3. Benjamin Brownlee M.D. PROCEDURES: None. PRIMARY DIAGNOSES: 1. Focal seizure. 2. Tachybrady syndrome. 3. Atrial fibrillation with tachycardia with a ventricular rate. SECONDARY DIAGNOSES: 1. History of seizure disorder. 2. History of cerebrovascular accident. 3. Hypertension. 4. Hyperlipidemia. 5. Dementia. DISCHARGE MEDICATIONS: 1. Keppra 750 mg 1 tab p.o. b.i.d. 2. Warfarin 2 mg on Monday and ; 1 mg on Monday, Monday, Monday, Monday, Monday. 3. Sotalol 40 mg p.o. b.i.d. 4. Pantoprazole 20 mg p.o. daily. 5. Donepezil 5 mg p.o. daily. 6. Amlodipine 10 mg p.o. daily. 7. Atorvastatin 40 mg p.o. at bedtime. DISCONTINUED MEDICATIONS: Atorvastatin 40 mg p.o. at bedtime. HISTORY OF PRESENT ILLNESS AND HOSPITAL COURSE: The patient is an 82-year-old female with a history of atrial fibrillation who presented to the emergency department with a change in baseline mental sta tus. There was concern for acute CVA. Neuro imaging essentially ruled out acute CVA. The patient w as noted to have a focal seizure in the emergency department. It is thought that her change in basel ine level of functioning was related to this per Dr. Bone who was consulted. Regarding the patien t's atrial fibrillation with rapid ventricular rate, she was started on a diltiazem drip in the emerg ency department and this was continued. Her sotalol dose was initially increased; however, the day, she was noted to have 2-3 second pauses on telemetry monitoring. Per Cardiology recommenda tions, her sotalol dose was decreased back to 40 mg. Electrophysiology recommended a pacemaker which patient's family adamantly were opposed to. They were informed that without definitive treatment wi th pacemaker that there is actually nothing preventing rapid ventricular rate from reoccurring. They expressed understanding. At this point, the patient was discharged with her home dose of sotalol 40 mg b.i.d. They were instructed to follow up to establish care with a primary care provider and noti fy their primary care provider if patient becomes symptomatic with rapid ventricular rate. Patient's INR was subtherapeutic. During her stay, she did receive therapeutic Lovenox. The patient's family is instructed to have her followup with the Coumadin clinic tomorrow to reestablish a therapeutic IN R after discharge. Regarding patient's chronic medical problems, her remainder of her home medicatio ns was restarted. However, given patient's history of CVA, her atorvastatin dose was increased to mo derate intensity. DISPOSITION: Stable. DISCHARGE INSTRUCTIONS: 1. Location: Home. 2. Diet: Heart healthy. 3. Activity: Ad eros. Home health with physical therapy, was ordered as well. 4. Followup: The patient is to follow up with Crys Fong M.D., [facility] in 3-7 days . 5. Tyrone Stone M.D. 6. Geraldo Bone M.D. in 7 to 14 days.
[2017-11-02] MEDS ORDERED: Warfarin Sodium 2 MG TAB PO SCH (17:00)
--- NOTE | 2017-11-05 08:39 | EKG ---
Test Reason : Blood Pressure : / mmHG Vent. Rate : 083 BPM Atrial Rate : 108 BPM P-R Int : 000 ms QRS Dur : 082 ms QT Int : 386 ms P-R-T Axes : 000 -27 037 degrees QTc Int : 453 ms Atrial fibrillation with a competing junctional pacemaker vs atrial flutter Nonspecific ST and T wave abnormality , probably digitalis effect Abnormal ECG Confirmed by MANFRED VIVAS, CINDY ([id number]) on 11/05/2017 8:39:01 AM Referred By: Eva RIVER Confirmed By:CINDY SHEARER MD
--- NOTE | 2017-11-05 08:43 | EKG ---
Test Reason : Blood Pressure : / mmHG Vent. Rate : 092 BPM Atrial Rate : 150 BPM P-R Int : 000 ms QRS Dur : 084 ms QT Int : 384 ms P-R-T Axes : 000 -33 -35 degrees QTc Int : 474 ms Atrial fibrillation vs flutter Left axis deviation Prolonged QT Abnormal ECG Confirmed by MANFRED VIVAS, CINDY ([id number]) on 11/05/2017 8:43:32 AM Referred By: PERICO Confirmed By:CINDY SHEARER MD
== END 2017-10-31 17:56 | disposition home or self-care (01) | DRG 101 ==
LOC: ERS 19:59 → IMCU/EMU 21:51 → 2SE 10-30 14:18
PROVIDERS: ADMIT Family Medicine; ATTEND Family Medicine
DX: G40.109 Localization-related (focal) (partial) symptomatic epilepsy and epileptic syndromes with simple partial seizures, not intractable, without status epilepticus (principal); I48.0 Paroxysmal atrial fibrillation; I49.5 Sick sinus syndrome; F03.90 Unspecified dementia, unspecified severity, without behavioral disturbance, psychotic disturbance, mood disturbance, and anxiety; Z86.73 Personal history of transient ischemic attack (TIA), and cerebral infarction without residual deficits; I10 Essential (primary) hypertension; E78.5 Hyperlipidemia, unspecified; Z79.01 Long term (current) use of anticoagulants; Z87.891 Personal history of nicotine dependence; Z88.5 Allergy status to narcotic agent; E87.6 Hypokalemia; Z66 Do not resuscitate
CPT/HCPCS: 36415; 36416; 70450; 70496; 70498; 70553; 71045; 80048; 80053; 80061; 80177; 81003; 81015; 82550; 82553; 83735; 84443; 84484; 85007; 85025; 85027; 85610; 85730; 93005; 93010; 94760; 96361; 96365; 96367; 96375; 99292; G8978-GP-CM; G8979-GP-CK; G8987-GO-CL; G8988-GO-CJ; G8996-GN-CI; G8997-GN-CI; J1650; J1953; J2060; J3475; J3480; J7050

== ENCOUNTER 2018-01-23 09:22 | Inpatient (IN) | payer MEDICARE ==
[2018-01-23 09:59] LABS: #Lymphocytes 0.7 thou/uL (1.20-3.40); #Monocytes 0.4 thou/uL (0.11-0.59); #Neutrophils 8.7 thou/uL (1.40-6.50); %Eosinophils 0.2 % (0.0-10.0); %Lymphocytes 7.3 % (21.0-51.0); %Monocytes 4.1 % (0.0-10.0); %Neutrophils 88.4 % (42.0-75.0); Hemoglobin 16.8 g/dL (12.0-16.0); Mean Corpuscular HGB CONC 31.6 g/dL (32.0-36.0); Mean Corpuscular Hemoglobin 27.6 pg (27.0-31.0); Mean Corpuscular Volume 87.4 fL (78.0-98.0); Mean Platelet Volume 7.3 fL (7.4-10.4); Platelet Count 321 thou/uL (130-400); RBC Distribution Width 12.6 % (11.5-14.5); Red Blood Cell (RBC) Count 6.08 mill/uL (4.20-5.40); White Blood Cell (WBC) Count 9.8 thou/uL (4.8-10.8)
[2018-01-23 10:01] LABS: Bilirubin Negative (Negative); Blood, Urine Trace (Negative); Clarity CLEAR (Clear); Glucose, Urine (Dipstick) Negative (Negative); Leukocyte Negative (Negative); Nitrite Negative (Negative); Protein, Urine (Dipstick) 30 mg/dL (Neg-Trace); Specific Gravity, Urine 1.008 (1.002-1.036); pH, Urine 7.5 (5.0-9.0)
[2018-01-23 10:04] LABS: Bacteria/HPF None Seen HPF (None Seen); Hyaline Casts/LPF 0-3 HYALINE CAST LPF (0-3 Hyaline); Pathc Cast-AUWi Flag 0.29 (0-2.49); Squamous Epithelial 0-3 HPF (0-3); WBC/HPF 0-3 HPF (0-3)
[2018-01-23 10:24] LABS: CKMB 1.5 ng/mL (0-6.6); Troponin I Less than 0.010 ng/mL (< 0.028)
[2018-01-23 10:31] LABS: ALT (SGPT) 22 U/L (8-55); AST (SGOT) 31 U/L (5-34); Albumin 4.4 g/dL (3.4-4.8); Alkaline Phosphatase 119 U/L (40-150); Anion Gap 22 mmol/L (10-20); BUN (Urea Nitrogen) 10 mg/dL (9.8-20.1); Bilirubin, Total 1.6 mg/dL (0.2-1.2); Calc. Creatinine Clearance 0 mL/min (70-130); Calcium 9.6 mg/dL (7.8-10.44); Carbon Dioxide 32 mmol/L (23-31); Chloride 85 mmol/L (98-107); Estimated GFR-MDRD 83; Globulin 4.6 g/dL (2.4-3.5); Glucose 113 mg/dL (83-110); Potassium 3.1 mmol/L (3.5-5.1); Sodium 136 mmol/L (136-145)
--- NOTE | 2018-01-23 10:34 | CT ---
CT OF THE BRAIN WITHOUT CONTRAST: Date: 01/23/18 INDICATION: History of fall, on blood thinners. COMPARISON: CT of the brain dated 10/29/17 and MRI of the brain dated 10/30/17. FINDINGS: Generalized cerebral and cerebellar atrophy is stable. Chronic ischemic change is similar. Encephalom alacia involving the right frontal lobe and right cerebellar hemisphere is stable. No definite acute infarct, hemorrhage, or hydrocephalus is present. There is prominent left frontal scalp contusion. De fect involving the right superior orbital rim is stable. No definite acute displaced or depressed sku ll fracture is evident. IMPRESSION: 1. No acute intracranial abnormality. 2. Stable areas of encephalomalacia involving the right frontal lobe and right cerebellar hemisphere . 3. Stable generalized cerebral and cerebellar atrophy with chronic small vessel white matter ischemi c change. 4. Prominent left frontal scalp hematoma. POS: [facility]
--- NOTE | 2018-01-23 10:36 | RAD ---
RIGHT HIP 2 VIEWS: Date: 01/23/18 HISTORY: Fall. Right hip injury. FINDINGS: Mild joint space narrowing. Femoral head contour is maintained. No acute fracture or dislocation. Oss eous structures are demineralized. Metallic clip overlies the right inguinal level. IMPRESSION: 1. Mild osteoarthritic changes right hip. No acute osseous abnormalities are demonstrated. 2. Osteoporosis. POS: [facility]
[2018-01-23 10:40] LABS: INR-International Normal Ratio 2.3; PTT 41.6 SEC (22.9-36.1); Prothrombin Time 25.4 SEC (12.0-14.7)
[2018-01-23] MEDS ORDERED: Acetaminophen 325 MG TAB PO PRN (13:26)
--- NOTE | 2018-01-23 13:45 | PDOC.FPRHP ---
- History of Present Illness Chief Complaint: Fall History of Present Illness: Ms. Kessler is a 82 yo F that presented to the ED after an unwitnessed fall this am. She lives with her son and was put to bed last night. This morning she was found on the floor, sleeping at 0830. She was woken up and was confused, with pants lowered, and wet with urine. Patient cannot remember falling. She does remember not being able to get up. After awakening, family said she was completely lucid and at baseline mental status. She has had no changes over the past week. Normal appetite, no fever or sickness. Has been ambulating w/o assistance, though family encourages her to use a walker. A&Ox2 is baseline, history of dementia. Denies headache, UE pain, hip pain. Reports knee pain. Patient takes coumadin. Last INR at end of December was 2.5. ED Course: CT head, EKG, R hip Xray, 500 NS bolus after systolic in 50s - Allergies/Adverse Reactions Allergies Allergy/AdvReac Type Severity Reaction Status Date / Time codeine Allergy Verified 01/23/18 17:37 - Home Medications Medication Instructions Recorded Confirmed Type Amlodipine [Norvasc] 1 tab PO DAILY 10/30/17 01/23/18 History Pantoprazole Sodium 20 mg PO DAILY 10/30/17 01/23/18 History Sotalol HCl [Sotalol] 0.5 tab PO BID 10/30/17 01/23/18 History levETIRAcetam [Levetiracetam] 1 tab PO BID 10/30/17 01/23/18 History Atorvastatin Calcium [Lipitor] 20 mg PO HS 01/23/18 01/23/18 History Donepezil HCl [Aricept] 10 mg PO DAILY 01/23/18 01/23/18 History Warfarin Sodium [Coumadin] 2.5 mg PO ASDIR 01/23/18 01/23/18 History Warfarin Sodium [Coumadin] 5 mg PO ASDIR 01/23/18 01/23/18 History - History PMHx: CVA, HTN, afib w/RVR, HLD, seizure, dementia, previous falls, unknown cancer PSHx: R facial reconstruction, "shortened colon" (1yr ago) FHx:unknown Social: Previous smoker, quit 50 yrs ago. No alcohol or drug use. Lives with son and his girlfriend. PT at home. - Review of Systems General: reports: fatigue. denies: fever/chills, weight/appetite/sleep changes Eyes: denies: eye pain, vision changes ENT: denies: nasal congestion, rhinorrhea Respiratory: denies: cough, shortness of breath Cardiovascular: denies: chest pain, palpitation Gastrointestinal: denies: nausea, vomiting, diarrhea, constipation, abdominal pain Genitourinary: reports: incontinence. denies: dysuria, polyuria Skin: reports: lesions (L forehead hematoma). denies: rashes Musculoskeletal: reports: pain (bilateral knee pain), tenderness Neurological: reports: weakness. denies: numbness Psychological: reports: depression. denies: anxiety - Vital signs BP: 114/75 HR: 99 RR: 18 Tmax: 97.8 Pox: 100% on 2L Wt: 57 kg - Physical Exam Constitutional: NAD, other (A&Ox2) HEENT: TM's clear and intact (R cerumen impaction), grossly normal hearing, MMM , oropharynx clear, other (hematoma on L forehead. L PERRL. R pupil, constricted , fixed, does not react to light.) Neck: supple, other (JVD bilaterally) Heart: RRR, normal S1/S2, no edema Lungs: CTAB, no rales/rhonchi, no wheezing Abdomen: soft, non-tender, bowel sounds present Musculoskeletal: normal structure, normal tone, ROM grossly normal (L knee ROM restricted d/t pain. L knee TTP.) Neurological: no focal deficit, CN II-XII intact, normal sensation Skin: other (superficial abrasion L shoulder) Heme/Lymphatic: no purpura, no petechia Psychiatric: normal mood and affect FMR H&P: Results - Labs Result Diagrams: 01/24/18 05:07 01/24/18 17:01 Lab results: WBC 9.8 thou/uL (4.8-10.8) 01/23/18 09:53 Hgb 16.8 g/dL (12.0-16.0) H 01/23/18 09:53 Hct 53.1 % (36.0-47.0) H 01/23/18 09:53 MCV 87.4 fL (78.0-98.0) 01/23/18 09:53 Plt Count 321 thou/uL (130-400) 01/23/18 09:53 Neutrophils % 88.4 % (42.0-75.0) H 01/23/18 09:53 Sodium 136 mmol/L (136-145) 01/23/18 09:53 Potassium 3.1 mmol/L (3.5-5.1) L 01/23/18 09:53 Chloride 85 mmol/L (98-107) L 01/23/18 09:53 Carbon Dioxide 32 mmol/L (23-31) H 01/23/18 09:53 BUN 10 mg/dL (9.8-20.1) 01/23/18 09:53 Creatinine 0.68 mg/dL (0.6-1.1) 01/23/18 09:53 Glucose 113 mg/dL (83-110) H 01/23/18 09:53 Calcium 9.6 mg/dL (7.8-10.44) 01/23/18 09:53 Total Bilirubin 1.6 mg/dL (0.2-1.2) H 01/23/18 09:53 AST 31 U/L (5-34) 01/23/18 09:53 ALT 22 U/L (8-55) 01/23/18 09:53 Alkaline Phosphatase 119 U/L (40-150) 01/23/18 09:53 Creatine Kinase 103 U/L (29-168) 01/23/18 09:53 CK-MB (CK-2) 1.5 ng/mL (0-6.6) 01/23/18 09:53 Serum Total Protein 9.0 g/dL (6.0-8.3) H 01/23/18 09:53 Albumin 4.4 g/dL (3.4-4.8) 01/23/18 09:53 Urine Ketones 40 mg/dL (Negative) H 01/23/18 09:50 Urine Blood Trace (Negative) H 01/23/18 09:50 Urine Nitrite Negative (Negative) 01/23/18 09:50 Ur Leukocyte Esterase Negative (Negative) 01/23/18 09:50 Urine RBC 4-6 HPF (0-3) 01/23/18 09:50 Urine WBC 0-3 HPF (0-3) 01/23/18 09:50 Ur Squamous Epith Cells 0-3 HPF (0-3) 01/23/18 09:50 Urine Bacteria None Seen HPF (None Seen) 01/23/18 09:50 - EKG Interpretation EKG: a fib w/RVR, L axis deviation, rate 104, [id number], St & T wave abnormality. possibe age undetermined infarct - Radiology Interpretation CT scan - head Status: report reviewed by me (no acute intracranial abnormality. chronic, small vessel ischemic changes. prominent L front scalp hematoma.) Other Status: report reviewed by me (R hip Xray: osteoporosis. no fracture) FMR H&P: A/P - Problem List (1) Hypotension Current Visit: Yes Status: Acute (2) Hypokalemia Current Visit: Yes Status: Acute Code(s): E87.6 - HYPOKALEMIA (3) Dementia Current Visit: No Status: Chronic Priority: Medium Code(s): F03.90 - UNSPECIFIED DEMENTIA WITHOUT BEHAVIORAL DISTURBANCE Qualifiers: Dementia type: unspecified type (4) HLD (hyperlipidemia) Current Visit: No Status: Chronic Priority: Low Code(s): E78.5 - HYPERLIPIDEMIA, UNSPECIFIED (5) Atrial fibrillation with RVR Current Visit: No Status: Chronic Priority: High Code(s): I48.91 - UNSPECIFIED ATRIAL FIBRILLATION (6) HTN (hypertension) Current Visit: No Status: Chronic Priority: Medium Code(s): I10 - ESSENTIAL (PRIMARY) HYPERTENSION (7) History of seizure Current Visit: Yes Status: Chronic Code(s): Z87.898 - PERSONAL HISTORY OF OTHER SPECIFIED CONDITIONS - Plan 82 yo F w/ PMH afib w/RVR on coumadin presents after unwitnessed fall at home, found to have hypotension in ER. Hypotension -systolic in the 50s in the ED, given 500 NS bolus and trendelenburg which resolved hypotension, systolic then in 120s -could be contributory to unwitnessed fall -continue to monitor. hold home HTN meds in the meantime. -troponins neg x2 -hold amlodipine. will continue sotalol Fall -unwitnessed, unknown if pt lost consciousness -Ddx includes orthostatic vs afib vs seizure -CT brain neg for acute intracranial abnormality. Prominent frontal scalp hematoma -R hip xray neg for fracture -pending L hip and L knee fracture -UA negative Hypokalemia -3.1 today -will replace and follow BMP A fib w/ RVR, chronic -on coumadin, INR 2.3 today -October 2017 admission, cardiology was consulted and pacemaker placement for SSS was denied by family. Family still is not interested in any invasive procedures or a pacemaker at this time. Will not consult cardiology or EP for this admission unless there is an acute change. -EKG today shows a fib w/RVR, rate 104 HLD -continue home meds Hx of seizure -continue home meds -prolactin ordered Hx of dementia Ppx: SCDs. No GI ppx indicated at this time. Disposition: Stable. Will continue to monitor BP and if pt remains stable will consider discharge tomorrow. FMR H&P: Upper Level - Pertinent history Patient is an 82 year old female with a history of dementia and tachybrady syndrome who was brought to the ED by her son. Patient was found on the ground this morning by her son's girlfriend. She was easily arousable. Per the son's girlfriend, she was slightly more confused in that she did not realize she was on the ground, and was not able to tell how she got there. She complained of left knee pain, but other than that had no complaints. Per her son, she was at her baseline at that time (A&O x 1-2)The patient's home health nurse arrived at the house for routine evaluation and recommended that the patient be brought to the ED for evaluation. On arrival to the ED she had a non-contrast CT of the brain which did not show evidence of intracranial hemorrhage. R. hip X-ray was performed which showed no fracture. ERMD discussed patient with Trauma PA who recommended observation of patient. While in the ED pt was noted to be unresponsive with "sonorous breathing" for a brief period with a heart rate of 30s and a systolic blood pressure in the 50s. She received a 500 cc bolus of fluid and was placed in reverse trendelenburg. As they were preparing to call a code, patient became alert and responsive. HR improved to 90s and systolic BP improved as well. The decision was made to admit patient for further evaluation. Of note, pt was admitted to the hospital in October 2017 for focal seizure and sick sinus syndrome and was treated for atrial fibrillation with RVR. At that time sotalol was increased, but patient began to have pauses noted on telemetry. Cardiology and EP were consulted and both recommended pacemaker placement. Pt's son (who is MPOA) declinend any intervention at that time. - Pertinent findings Vitals BP: 104/73 P: 91 RR:18 T: 97.8 SpO2: 99% on 2L Physical exam: General: alert and oriented x 1 Heart: irregularly irregular rhythm. no murmurs, rubs, or gallops. Lungs: clear to auscultations bilaterally. Abdomen: soft, non-tender; no masses or organomegaly. Extremities: no shortening or external rotation. full ROM on RLE. Pain with movement of her left knee. Neuro: CN II-XII intact grossly; no focal deficits - Plan Date/Time: 01/23/18 1340 I, Crys Fong, have evaluated this patient and agree with findings/plan as outlined by culinary internship resident. Pertinent changes/additions are listed here. 1. Tachybrady syndrome with symptomatic bradyarrhythmia - we will admit patient to telemetry with observation -pt's fall/hypotension may be related to arrhythmia. Discussed with patient' s family that definitive treatment with pacemaker may be of benefit in this situation, however patient's son, who is TIN declined any invasive intervention. - we will continue supportive care with maintenance fluids and monitor telemetry strip overnight. Consider palliative consult in AM. - continue home medications. 2. Left knee pain - will obtain left knee and left hip radiographs. 3. Seizure disorder - continue home meds 4. Dementia - continue home meds Attending Addendum - Attending Addendum Date/Time: 01/24/18 2230 I personally evaluated the patient and discussed the management with Dr. Fong and Dr. Chopra on 01/23/18 @1600 I agree with the History, Examination, Assessment and Plan documented above with any addition or exceptions noted below- 82 yo WF with h/o dementia, a-fib, tachy-kameron syndrome brought to the ER after being found on the floor by family. Family members report that she went to bed last night at usual fortunato and when she went to see her in the morning, the oatient was found on the floor next to the bed. Uncertain how long she had been there. Patient does not recall falling. PMH/PSH/Meds/All reviewed and agree with residents documentation. Afebrile VSS. Exam repeated by me and agree with residents findings including left knee pain with ROM, left frontal scalp hematoma. A/P: 1) Syncope- h/o tachy /kameron syndrome and previously declined pacemaker placement. Discussed again with family and again declined. Will monitor om telemtry. 2) Afib- on anticoagulation; CT brain negative. has superficial scalp hematoma; continue to monitor. 3) left knee pain- will check knee and hip xray to rule out occult fracture.
[2018-01-23 14:00] LABS: Troponin I Less than 0.010 ng/mL (< 0.028)
--- NOTE | 2018-01-23 14:59 | RAD ---
LEFT KNEE 4 VIEWS: Date: 01/23/18 HISTORY: Left knee pain. FINDINGS: Mild joint space narrowing lateral compartment. Moderate tricompartmental osteophytosis. Some synovia l calcification of the suprapatellar bursa. No flow or distention. No acute fracture or dislocation. Prominent calcification over the arterial structures. IMPRESSION: 1. Mild osteoarthritic changes left knee. 2. Atherosclerosis. POS: MARELY
[2018-01-23 16:20] LABS: Troponin I Less than 0.010 ng/mL (< 0.028)
[2018-01-23] MEDS: Sodium Chloride 0.9% 1,000 ML IV SCH (16:22)
--- NOTE | 2018-01-23 17:10 | RAD ---
2 VIEWS LEFT HIP: Date: 01/23/18 INDICATION: Left hip pain. COMPARISON: None. FINDINGS: There is a valgus impacted subcapital left femoral neck fracture. There is diffuse osteopenia. There is heterotopic ossification involving the anterior left hemipelvis. IMPRESSION: Valgus impacted left subcapital femoral neck fracture. POS: MARELY
[2018-01-23] MEDS: levETIRAcetam 500 MG TAB PO SCH (21:05)
[2018-01-23] MEDS: Sotalol HCl 80 MG TAB PO SCH (21:06)
[2018-01-23] MEDS: Atorvastatin Calcium 40 MG TAB PO SCH (21:07)
[2018-01-24] MEDS: Ketorolac Tromethamine 30 MG/ML VIAL IVP SCH ×4 (01:11→18:09)
[2018-01-24] MEDS: Sodium Chloride 0.9% 1,000 ML IV SCH ×2 (02:02→10:52)
--- NOTE | 2018-01-24 03:09 | CON ---
DATE OF CONSULTATION: 01/23/2018 CHIEF COMPLAINT: Left hip pain. HISTORY OF PRESENT ILLNESS: Charlotte is an 82-year-old female in poor health. She fell out of bed last night and was found down this morning by her son. She lives with her son. She ambulates fairly ind ependently. She reports without much assistance. She has had several falls. She was unable to mo e and was taken to the emergency department. She had workup in the emergency department for knee buck n and then subsequent to that hip pain. X-rays eventually showed a femoral neck fracture of the left proximal femur. She had hemodynamic instability related to severe bradycardia today with a heart ra te into the 30s. She had low blood pressure with a systolic blood pressure reported to be in the 50s . She did receive saline boluses. She has a history of tachybrady syndrome and has refused pacemake r placement in the past. Patient is on Coumadin for atrial fibrillation. Her INR today was 2.3. Cu rrently, she is resting comfortably in bed. She denies significant pain except for with movement in the hip. PAST MEDICAL HISTORY: CVA, hypertension, atrial fibrillation with RVR, hyperlipidemia, seizure disor andrea, dementia, previous cancer, and cardiac arrhythmia. PAST SURGICAL HISTORY: Facial reconstruction and colon surgery. FAMILY MEDICAL HISTORY: Noncontributory. SOCIAL HISTORY: The patient has a long history of smoking many years ago. She currently does not sm jake. She denies alcohol or drug use. IMAGES: X-rays of the pelvis demonstrate an impacted and shortened femoral neck fracture, the patien t with osteoporotic appearing bone. Fracture appears acute. PHYSICAL EXAMINATION: VITAL SIGNS: Blood pressure is 127/73, temperature is 98.7, pulse is 107, respiratory rate is 20, 94 % on room air. GENERAL: She is lying supine, alert, in no apparent distress, talkative. HEENT: Normocephalic, atraumatic. RESPIRATORY: Breathing comfortably. ABDOMEN: Soft, nontender, nondistended. CARDIOVASCULAR: Peripheral pulses palpable and regular. MUSCULOSKELETAL: Patient's left lower extremity has pain with motion. She is able flex and extend t he foot and ankle. She has palpable dorsalis pedis pulse. Two-second capillary refill. EXTREMITIES: Upper extremities are atraumatic. IMPRESSION : Acute left impacted femoral neck fracture in an elderly female with many medical proble msTru PLAN: I had a long discussion with the patient regarding her hip fracture. Typically, this is treat ed operatively to allow some IV to mobilize without significant pain and prevent complications of pro longed bed rest. The most appropriate surgery for her would be hemiarthroplasty of the hip. Unfortu nately, she is at very high risk for surgery, especially given her cardiac status. She would likely need extensive cardiac workup and even a pacemaker placed prior to safely undergoing surgery. At thi s point, the patient does not want any significant intervention. An elevated INR would preclude surg karma tomorrow, but this could be brought down. I will continue to follow the patient and have further discussion with her. Nonoperative treatment would be reasonable for her given her high risk of surg ical complication. I am happy to treat her either surgically or nonsurgically depending on her decis ion in her family's decision.
[2018-01-24 06:00] LABS: Anion Gap 14 mmol/L (10-20); BUN (Urea Nitrogen) 17 mg/dL (9.8-20.1); Calc. Creatinine Clearance 48 mL/min (70-130); Calcium 7.6 mg/dL (7.8-10.44); Carbon Dioxide 31 mmol/L (23-31); Chloride 95 mmol/L (98-107); Estimated GFR-MDRD 81; Glucose 71 mg/dL (83-110); Potassium 2.2 mmol/L (3.5-5.1); Sodium 138 mmol/L (136-145)
--- NOTE | 2018-01-24 06:13 | PDOC.FM ---
- Subjective Subjective: No adverse events overnight. She denies chest pain, difficulty breathing, and nausea/vomiting. Pt grimaces when she is moved. Otherwise, pt had a restful night per nurse. - Objective Vital Signs & Weight: Vital Signs (12 hours) Temp Pulse Resp BP BP Pulse Ox 01/24/18 04:00 98.5 F 99 20 112/56 L 94 L 01/23/18 21:06 73 01/23/18 20:00 98.1 F 73 18 130/60 91 L Weight Weight 49.442 kg I&O: 01/22/18 01/23/18 01/24/18 06:59 06:59 06:59 Intake Total 910 Balance 910 Result Diagrams: 01/24/18 05:07 01/24/18 05:07 <Crys Fong - Last Filed: 01/24/18 09:14> - Objective Vital Signs & Weight: Vital Signs (12 hours) Temp Pulse Resp BP BP Pulse Ox 01/24/18 08:29 86 110/53 L 01/24/18 08:00 97 F L 85 14 110/53 L 96 01/24/18 04:00 98.5 F 99 20 112/56 L 94 L Weight Weight 49.442 kg I&O: 01/23/18 01/24/18 01/25/18 06:59 06:59 06:59 Intake Total 910 Balance 910 Result Diagrams: 01/24/18 05:07 01/24/18 05:07 <Bryce Albrecht - Last Filed: 01/24/18 12:30> Phys Exam - Physical Examination Constitutional: NAD HEENT: PERRLA Neck: no nodes Respiratory: no wheezing Cardiovascular: RRR Gastrointestinal: soft Musculoskeletal: no edema, pulses present Psychiatric: normal affect Deviation from normal: A&O x 1 Skin: no rash <Crys Fong - Last Filed: 01/24/18 09:14> Dx/Plan (1) Hypotension Status: Acute Plan: BPs stable. (2) Hypokalemia Code(s): E87.6 - HYPOKALEMIA Status: Acute Plan: K+ 2.2 today. Will replace. (3) Dementia Code(s): F03.90 - UNSPECIFIED DEMENTIA WITHOUT BEHAVIORAL DISTURBANCE Status: Chronic QualifierTitle: Dementia type: unspecified type Plan: Continue home medications. (4) HLD (hyperlipidemia) Code(s): E78.5 - HYPERLIPIDEMIA, UNSPECIFIED Status: Chronic Plan: Continue home meds. (7) History of seizure Code(s): Z87.898 - PERSONAL HISTORY OF OTHER SPECIFIED CONDITIONS Status: Chronic Plan: Continue home medications. (8) Subcapital fracture of femur Code(s): S72.019A - UNSP INTRACAPSULAR FRACTURE OF UNSP FEMUR, INIT FOR CLOS FX Status: Acute QualifierTitle: Fracture type: closed Laterality: left Plan: Discussed case with Dr. Gómez who recommended surgical fixation. Pt is does not have the capacity to consent for surgery. Will need to discuss with Pt's son who is MPOA. Attempted to contact, son. Will also consider palliative consult. (9) Tachy-kameron syndrome Code(s): I49.5 - SICK SINUS SYNDROME Status: Acute Plan: Stable. Continue anticoagulation. <Crys Fong - Last Filed: 01/24/18 09:14> Attending Addendum - Attending Addendum Date/Time: 01/24/18 1227 I personally evaluated the patient and discussed the management with Dr. Morgan and team. I agree with and repeated the History, Examination, Assessment and Plan documented above with any addition or exceptions noted below. Pt pleasant. No complaints. Tachy, regular this morning, lungs clear with no increased wob. She likely has tachybrady and, after extensive discussion with family member, they declined PM placement or any surgery. In light of this, will replete electrolytes, consider changing her from sotalol to another agent and will need to revisit warfarin. They have agreed to and requested a palliative care consultation, which I feel is very appropriate. <Bryce Albrecht - Last Filed: 01/24/18 12:30>
[2018-01-24 06:19] LABS: #Eosinphils 0.1 thou/uL (0.0-0.7); #Lymphocytes 0.9 thou/uL (1.20-3.40); #Monocytes 0.6 thou/uL (0.11-0.59); #Neutrophils 6.9 thou/uL (1.40-6.50); %Basophils 0.1 % (0.0-1.0); %Eosinophils 0.8 % (0.0-10.0); %Lymphocytes 11.1 % (21.0-51.0); %Monocytes 7.2 % (0.0-10.0); %Neutrophils 80.8 % (42.0-75.0); Hemoglobin 12.2 g/dL (12.0-16.0); Mean Corpuscular HGB CONC 33.7 g/dL (32.0-36.0); Mean Corpuscular Hemoglobin 29.6 pg (27.0-31.0); Mean Corpuscular Volume 87.7 fL (78.0-98.0); Mean Platelet Volume 7.7 fL (7.4-10.4); Platelet Count 219 thou/uL (130-400); RBC Distribution Width 12.2 % (11.5-14.5); Red Blood Cell (RBC) Count 4.14 mill/uL (4.20-5.40); White Blood Cell (WBC) Count 8.5 thou/uL (4.8-10.8)
[2018-01-24] MEDS ORDERED: Magnesium Sulfate 4 GM in Sodium Chloride 0.9% 250 ML 250 ML IVPB SCH (06:45)
[2018-01-24] MEDS ORDERED: Magnesium Sulfate 2 GM in Sodium Chloride 0.9% 250 ML 250 ML IVPB SCH (06:45)
[2018-01-24] MEDS: Potassium Chloride 20 MEQ in Premix Bag 1 BAG IVPB SCH ×4 (08:27→18:10)
[2018-01-24] MEDS: levETIRAcetam 500 MG TAB PO SCH ×2 (08:28→21:13)
[2018-01-24] MEDS: Donepezil HCl 5 MG TAB PO SCH ×3 (08:28→13:04)
[2018-01-24] MEDS: Sotalol HCl 80 MG TAB PO SCH ×2 (08:29→21:11)
[2018-01-24 17:48] LABS: Anion Gap 18 mmol/L (10-20); BUN (Urea Nitrogen) 17 mg/dL (9.8-20.1); Calc. Creatinine Clearance 48 mL/min (70-130); Calcium 8.3 mg/dL (7.8-10.44); Carbon Dioxide 27 mmol/L (23-31); Chloride 96 mmol/L (98-107); Estimated GFR-MDRD 81; Glucose 77 mg/dL (83-110); Magnesium 1.5 mg/dL (1.6-2.6); Sodium 138 mmol/L (136-145)
[2018-01-24] MEDS: Warfarin Sodium 2.5 MG TAB PO SCH (18:10)
[2018-01-24] MEDS ORDERED: Potassium Chloride 20 MEQ TAB PO SCH (18:45)
[2018-01-24] MEDS: Magnesium Oxide 400 MG TAB PO SCH (21:14)
[2018-01-24] MEDS: Atorvastatin Calcium 40 MG TAB PO SCH (21:14)
[2018-01-25] MEDS: Ketorolac Tromethamine 30 MG/ML VIAL IVP SCH ×2 (00:43→05:46)
[2018-01-25 05:43] LABS: #Eosinphils 0.4 thou/uL (0.0-0.7); #Lymphocytes 0.8 thou/uL (1.20-3.40); #Monocytes 0.5 thou/uL (0.11-0.59); #Neutrophils 4.7 thou/uL (1.40-6.50); %Basophils 0.3 % (0.0-1.0); %Eosinophils 6.2 % (0.0-10.0); %Monocytes 8.4 % (0.0-10.0); %Neutrophils 73.2 % (42.0-75.0); Hemoglobin 11.1 g/dL (12.0-16.0); Mean Corpuscular Volume 88.3 fL (78.0-98.0); Mean Platelet Volume 7.8 fL (7.4-10.4); Platelet Count 215 thou/uL (130-400); RBC Distribution Width 12.4 % (11.5-14.5); Red Blood Cell (RBC) Count 3.69 mill/uL (4.20-5.40); White Blood Cell (WBC) Count 6.4 thou/uL (4.8-10.8)
[2018-01-25 05:45] LABS: INR-International Normal Ratio 3.6
[2018-01-25 05:54] LABS: Anion Gap 10 mmol/L (10-20); BUN (Urea Nitrogen) 20 mg/dL (9.8-20.1); Calc. Creatinine Clearance 50 mL/min (70-130); Calcium 8.2 mg/dL (7.8-10.44); Carbon Dioxide 30 mmol/L (23-31); Chloride 101 mmol/L (98-107); Estimated GFR-MDRD 83; Glucose 89 mg/dL (83-110); Potassium 3.7 mmol/L (3.5-5.1); Sodium 137 mmol/L (136-145)
--- NOTE | 2018-01-25 06:49 | PDOC.FM ---
- Subjective Subjective: Patient is doing well this morning with no complaints. No adverse events overnight per nursing. She denies chest pain, shortness of breath, nausea, and vomiting. - Objective MAR Reviewed: Yes Vital Signs & Weight: Vital Signs (12 hours) Temp Pulse Resp BP Pulse Ox 01/25/18 04:00 98.0 F 66 18 136/63 94 L 01/24/18 21:11 68 01/24/18 19:30 97.7 F 68 14 128/59 L 93 L Weight Admit Weight 49.442 kg Weight 54.567 kg I&O: 01/23/18 01/24/18 01/25/18 06:59 06:59 06:59 Intake Total 910 1670 Balance 910 1670 Result Diagrams: 01/25/18 05:18 01/25/18 05:18 <Crys Fong - Last Filed: 01/25/18 08:47> - Objective Vital Signs & Weight: Vital Signs (12 hours) Temp Pulse Resp BP Pulse Ox 01/25/18 09:03 94 L 01/25/18 08:50 98.0 F 66 17 170/75 H 89 L 01/25/18 04:00 98.0 F 66 18 136/63 94 L Weight Admit Weight 49.442 kg Weight 54.567 kg I&O: 01/24/18 01/25/18 01/26/18 06:59 06:59 06:59 Intake Total 910 1670 Balance 910 1670 Result Diagrams: 01/25/18 05:18 01/25/18 05:18 <Bryce Albrecht - Last Filed: 01/25/18 12:19> Phys Exam - Physical Examination Constitutional: NAD Neck: no JVD Respiratory: no wheezing, no rales, clear to auscultation bilateral Cardiovascular: RRR Gastrointestinal: soft, non-tender, no distention Musculoskeletal: no edema Neurological: non-focal Psychiatric: normal affect <Crys Fong - Last Filed: 01/25/18 08:47> Dx/Plan (1) Subcapital fracture of femur Code(s): S72.019A - UNSP INTRACAPSULAR FRACTURE OF UNSP FEMUR, INIT FOR CLOS FX Status: Acute QualifierTitle: Fracture type: closed Laterality: left Plan: Discussed case with Dr. Gómez who recommended surgical fixation. Pt is does not have the capacity to consent for surgery. Pt's family has not made a decision regarding surgery. Palliative care/family meeting will take place this afternoon. (2) Tachy-kameron syndrome Code(s): I49.5 - SICK SINUS SYNDROME Status: Acute Plan: Pt continues to alternate between sinus rhythm and atrial fibrillation. Continue anticoagulation for now, however, will re-visit the the risks vs benefits. Pt has HASBLED score of 2 suggesting moderate risk of major bleeding event. Continue Sotalol. (3) Dementia Code(s): F03.90 - UNSPECIFIED DEMENTIA WITHOUT BEHAVIORAL DISTURBANCE Status: Chronic QualifierTitle: Dementia type: unspecified type Plan: Continue home medications. (4) HLD (hyperlipidemia) Code(s): E78.5 - HYPERLIPIDEMIA, UNSPECIFIED Status: Chronic Plan: Continue home meds. (5) History of seizure Code(s): Z87.898 - PERSONAL HISTORY OF OTHER SPECIFIED CONDITIONS Status: Chronic Plan: Continue home medications. - Plan Plan: Per discussions with patient's son and sister, the primary aim is to transfer patient to [place] where she has more family support. Ultimate goals of care are still undecided. Pt is currently stable, but her prognosis is guarded. <Crys Fong - Last Filed: 01/25/18 08:47> Attending Addendum - Attending Addendum Date/Time: 01/25/18 1218 I personally evaluated the patient and discussed the management with Dr. Fong. I agree with and repeated the History, Examination, Assessment and Plan documented above with any addition or exceptions noted below. Patient doing well this morning, no c/o any hip pain and able to flex 45 deg easily. We are awaiting family meeting at 2 today to determine next directions , deprescribing, etc. <Bryce Albrecht - Last Filed: 01/25/18 12:19>
[2018-01-25] MEDS: levETIRAcetam 500 MG TAB PO SCH ×2 (09:33→21:01)
[2018-01-25] MEDS: Sotalol HCl 80 MG TAB PO SCH ×2 (09:34→21:00)
[2018-01-25] MEDS: Donepezil HCl 5 MG TAB PO SCH (09:34)
[2018-01-25] MEDS: Magnesium Oxide 400 MG TAB PO SCH (09:34)
[2018-01-25] MEDS: CeleCOXIB 100 MG CAP PO SCH (21:00)
[2018-01-25] MEDS: Atorvastatin Calcium 40 MG TAB PO SCH (21:01)
[2018-01-26 05:48] LABS: #Eosinphils 0.2 thou/uL (0.0-0.7); #Monocytes 0.7 thou/uL (0.11-0.59); #Neutrophils 4.9 thou/uL (1.40-6.50); %Eosinophils 3.6 % (0.0-10.0); %Monocytes 9.8 % (0.0-10.0); %Neutrophils 72.6 % (42.0-75.0); Mean Corpuscular HGB CONC 33.2 g/dL (32.0-36.0); Mean Corpuscular Hemoglobin 29.5 pg (27.0-31.0); Mean Corpuscular Volume 88.9 fL (78.0-98.0); Mean Platelet Volume 7.5 fL (7.4-10.4); Platelet Count 205 thou/uL (130-400); RBC Distribution Width 12.2 % (11.5-14.5); Red Blood Cell (RBC) Count 4.06 mill/uL (4.20-5.40); White Blood Cell (WBC) Count 6.8 thou/uL (4.8-10.8)
[2018-01-26 05:55] LABS: Anion Gap 9 mmol/L (10-20); BUN (Urea Nitrogen) 11 mg/dL (9.8-20.1); Calc. Creatinine Clearance 63 mL/min (70-130); Carbon Dioxide 35 mmol/L (23-31); Chloride 98 mmol/L (98-107); Estimated GFR-MDRD Greater than 90; Glucose 103 mg/dL (83-110); Potassium 3.2 mmol/L (3.5-5.1); Sodium 139 mmol/L (136-145)
[2018-01-26 05:58] LABS: INR-International Normal Ratio 3.8; Prothrombin Time 37.2 SEC (12.0-14.7)
[2018-01-26] MEDS ORDERED: Potassium Chloride 20 MEQ TAB PO SCH (07:00)
[2018-01-26] MEDS: levETIRAcetam 500 MG TAB PO SCH ×2 (08:58→21:47)
[2018-01-26] MEDS: CeleCOXIB 100 MG CAP PO SCH (08:58)
[2018-01-26] MEDS: Donepezil HCl 5 MG TAB PO SCH (08:58)
[2018-01-26] MEDS: Sotalol HCl 80 MG TAB PO SCH ×2 (08:59→22:00)
[2018-01-26] MEDS ORDERED: Magnesium 2 GM/NS 0.9% 100 ML 2 GM in Premix Bag 1 BAG IVPB SCH (11:30)
--- NOTE | 2018-01-26 15:11 | PDOC.FM ---
- Subjective Subjective: No adverse events overnight. She denies chest pain, shortness of breath, nausea , and vomiting. - Objective MAR Reviewed: Yes Vital Signs & Weight: Vital Signs (12 hours) Temp Pulse Resp BP BP Pulse Ox 01/26/18 11:29 98.2 F 60 19 116/59 L 93 L 01/26/18 08:59 72 150/71 H 01/26/18 08:45 97.7 F 66 19 150/71 H 94 L Weight Admit Weight 49.442 kg Weight 52.617 kg I&O: 01/25/18 01/26/18 01/27/18 06:59 06:59 06:59 Intake Total 1670 1037 237 Balance 1670 1037 237 Result Diagrams: 01/27/18 05:23 01/27/18 05:23 <Crys Fong - Last Filed: 01/27/18 06:16> - Objective Vital Signs & Weight: Vital Signs (12 hours) Temp Pulse Resp BP Pulse Ox 01/29/18 04:20 98.2 F 78 20 144/68 H 96 01/28/18 22:50 98.2 F 65 20 125/60 93 L Weight Admit Weight 49.442 kg Weight 54.431 kg I&O: 01/28/18 01/29/18 01/30/18 06:59 06:59 06:59 Intake Total 820 1500 Balance 820 1500 Result Diagrams: 01/29/18 05:30 01/29/18 05:30 <Trav Lind - Last Filed: 01/29/18 08:21> Phys Exam - Physical Examination Constitutional: NAD Respiratory: clear to auscultation bilateral Gastrointestinal: soft Musculoskeletal: no edema Psychiatric: normal affect <Crys Fong - Last Filed: 01/27/18 06:16> Dx/Plan (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 Continue anticoagulation for now, however, will re-visit the the risks vs benefits. Pt has HASBLED score of 2 suggesting moderate risk of major bleeding event. Continue Sotalol. (2) Subcapital fracture of femur Code(s): S72.019A - UNSP INTRACAPSULAR FRACTURE OF UNSP FEMUR, INIT FOR CLOS FX Status: Acute QualifierTitle: Fracture type: closed Laterality: left Plan: Discussed case with Dr. Gómez who recommended surgical fixation vs. nonoperative management. Pt is does not have the capacity to consent for surgery. Pt's son has decided on surgery. (3) Dementia Code(s): F03.90 - UNSPECIFIED DEMENTIA WITHOUT BEHAVIORAL DISTURBANCE Status: Chronic QualifierTitle: Dementia type: unspecified type Plan: Continue home medications. (4) HLD (hyperlipidemia) Code(s): E78.5 - HYPERLIPIDEMIA, UNSPECIFIED Status: Chronic Plan: Continue home meds. (5) History of seizure Code(s): Z87.898 - PERSONAL HISTORY OF OTHER SPECIFIED CONDITIONS Status: Chronic Plan: Continue home medications. - Plan Plan: Explained to patient's son that patient pt's prognosis is guarded. Will continue discussion with pt's aunt as well. Pt's son has decided upon surgery at this time. Will reach out to Dr. Gómez this afternoon. <Crys Fong - Last Filed: 01/27/18 06:16> Attending Addendum - Attending Addendum Date/Time: 01/29/1818 I personally evaluated the patient and discussed the management with Dr. Fong I agree with the History, Examination, Assessment and Plan documented above with any addition or exceptions noted below. Recommend decision Palliative care verse active intervention if desire to have surgery rec it be done here prior to transfer appreciate Orthopedic rec in this regard. <Trav Lind - Last Filed: 01/29/18 08:21>
[2018-01-26] MEDS ORDERED: CeleCOXIB 100 MG CAP PO PRN (15:12)
--- NOTE | 2018-01-26 19:17 | PDOC.EVN ---
Event Note - Event Note Event Note: Candid discussion with Son who states he is the Medical POA for the patient who doesn't currently demonstrate the mental capacity to make a decision. Son made aware of my concern with traveling in Medical [place] and need for pacemaker with sick sinus syndrome. Family to have meeting to make decision regard patient urgent medical care needs. I have communicated my concerns and son endorses understanding. If family agrees to surgery here patient would need Cardiology clearance ( pacemaker) and understand that Orthopedist willing to operate when patient cleared by Cardiology. Given patient advanced age and recent hip fracture correction prognosis would remain guarded
[2018-01-26] MEDS: Atorvastatin Calcium 40 MG TAB PO SCH (21:47)
[2018-01-27 05:34] LABS: #Eosinphils 0.2 thou/uL (0.0-0.7); #Lymphocytes 0.9 thou/uL (1.20-3.40); #Monocytes 0.6 thou/uL (0.11-0.59); #Neutrophils 3.7 thou/uL (1.40-6.50); %Lymphocytes 16.9 % (21.0-51.0); %Monocytes 10.9 % (0.0-10.0); %Neutrophils 69.2 % (42.0-75.0); Hemoglobin 12.3 g/dL (12.0-16.0); Mean Corpuscular HGB CONC 33.2 g/dL (32.0-36.0); Mean Corpuscular Hemoglobin 29.6 pg (27.0-31.0); Mean Corpuscular Volume 89.1 fL (78.0-98.0); Mean Platelet Volume 7.5 fL (7.4-10.4); Platelet Count 233 thou/uL (130-400); RBC Distribution Width 12.2 % (11.5-14.5); Red Blood Cell (RBC) Count 4.15 mill/uL (4.20-5.40); White Blood Cell (WBC) Count 5.4 thou/uL (4.8-10.8)
[2018-01-27 05:38] LABS: INR-International Normal Ratio 2.3; Prothrombin Time 25.3 SEC (12.0-14.7)
[2018-01-27 05:43] LABS: Anion Gap 11 mmol/L (10-20); BUN (Urea Nitrogen) 14 mg/dL (9.8-20.1); Calc. Creatinine Clearance 60 mL/min (70-130); Calcium 9.5 mg/dL (7.8-10.44); Carbon Dioxide 33 mmol/L (23-31); Chloride 98 mmol/L (98-107); Estimated GFR-MDRD Greater than 90; Glucose 97 mg/dL (83-110); Magnesium 1.4 mg/dL (1.6-2.6); Potassium 3.9 mmol/L (3.5-5.1); Sodium 138 mmol/L (136-145)
--- NOTE | 2018-01-27 06:19 | PDOC.FM ---
- Subjective Subjective: Patient has no complaints. She denies nausea, vomiting, shortness of breath, nausea, and vomiting. She denies pain. Patient heart rate on telemetry has been sinus kameron in the 50s. This morning at around 0510 she converted into afib/ flutter in the 110s up to 150s at rest. Pt is asymptomatic. - Objective MAR Reviewed: Yes Vital Signs & Weight: Vital Signs (12 hours) Temp Pulse Resp BP Pulse Ox 01/27/18 04:00 99.4 F 53 L 16 152/70 H 94 L 01/27/18 00:00 98.5 F 63 16 129/58 L 94 L 01/26/18 19:45 98.5 F 63 16 120/56 L 93 L Weight Admit Weight 49.442 kg Weight 52.889 kg I&O: 01/25/18 01/26/18 01/27/18 06:59 06:59 06:59 Intake Total 1670 1037 1177 Balance 1670 1037 1177 Result Diagrams: 01/27/18 05:23 01/27/18 05:23 Phys Exam - Physical Examination Constitutional: NAD HEENT: PERRLA Respiratory: clear to auscultation bilateral Cardiovascular: RRR Gastrointestinal: soft, non-tender Musculoskeletal: no edema Neurological: moves all 4 limbs Psychiatric: normal affect Skin: no rash Dx/Plan (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 Continue anticoagulation for now, however, will re-visit the the risks vs benefits. Pt has HASBLED score of 2 suggesting moderate risk of major bleeding event. Continue Sotalol. Will touch base with cardiology today, regarding best course of action (2) Subcapital fracture of femur Code(s): S72.019A - UNSP INTRACAPSULAR FRACTURE OF UNSP FEMUR, INIT FOR CLOS FX Status: Acute Qualifiers: Fracture type: closed Laterality: left Plan: Discussed case with Dr. Gómez who recommended surgical fixation vs. nonoperative management. Pt is does not have the capacity to consent for surgery. Pt's son has decided on surgery. (3) Dementia Code(s): F03.90 - UNSPECIFIED DEMENTIA WITHOUT BEHAVIORAL DISTURBANCE Status: Chronic Qualifiers: Dementia type: unspecified type Plan: Continue home medications. (4) HLD (hyperlipidemia) Code(s): E78.5 - HYPERLIPIDEMIA, UNSPECIFIED Status: Chronic Plan: Continue home meds. (5) History of seizure Code(s): Z87.898 - PERSONAL HISTORY OF OTHER SPECIFIED CONDITIONS Status: Chronic Plan: Continue home medications.
[2018-01-27] MEDS: Sotalol HCl 80 MG TAB PO SCH ×2 (06:32→21:09)
[2018-01-27] MEDS ORDERED: Magnesium Oxide 400 MG TAB PO SCH (06:45)
[2018-01-27] MEDS: Donepezil HCl 5 MG TAB PO SCH (10:13)
[2018-01-27] MEDS: levETIRAcetam 500 MG TAB PO SCH ×2 (10:13→21:10)
--- NOTE | 2018-01-27 13:49 | PDOC.EVN ---
Event Note - Event Note Event Note: Re-addressed patient's condition with her son (Sukumar CASTLE). At this time he has not decided on pursuing surgical fixation of patient's hip nor pacemaker placement. He would like to discuss everything with the patient's sister and Dr. Gómez, prior to deciding.
[2018-01-27] MEDS ORDERED: Digoxin 0.5 MG/2 ML AMP ONE (16:36)
[2018-01-27] MEDS ORDERED: Digoxin 0.5 MG/2 ML AMP SLOW IVP SCH (16:45)
[2018-01-27] MEDS: Warfarin Sodium 2.5 MG TAB PO SCH (17:38)
[2018-01-27] MEDS: Atorvastatin Calcium 40 MG TAB PO SCH (21:11)
[2018-01-28 05:37] LABS: PTT 45.5 SEC (22.9-36.1); Prothrombin Time 22.9 SEC (12.0-14.7)
[2018-01-28 05:38] LABS: #Eosinphils 0.1 thou/uL (0.0-0.7); #Lymphocytes 1.2 thou/uL (1.20-3.40); #Monocytes 0.6 thou/uL (0.11-0.59); #Neutrophils 3.5 thou/uL (1.40-6.50); %Basophils 0.7 % (0.0-1.0); %Eosinophils 2.1 % (0.0-10.0); %Lymphocytes 21.3 % (21.0-51.0); %Monocytes 11.1 % (0.0-10.0); %Neutrophils 64.8 % (42.0-75.0); Hemoglobin 13.1 g/dL (12.0-16.0); Mean Corpuscular HGB CONC 33.3 g/dL (32.0-36.0); Mean Corpuscular Hemoglobin 29.5 pg (27.0-31.0); Mean Corpuscular Volume 88.8 fL (78.0-98.0); Mean Platelet Volume 7.5 fL (7.4-10.4); Platelet Count 259 thou/uL (130-400); RBC Distribution Width 12.1 % (11.5-14.5); Red Blood Cell (RBC) Count 4.44 mill/uL (4.20-5.40); White Blood Cell (WBC) Count 5.4 thou/uL (4.8-10.8)
[2018-01-28 05:43] LABS: Anion Gap 12 mmol/L (10-20); BUN (Urea Nitrogen) 11 mg/dL (9.8-20.1); Calc. Creatinine Clearance 62 mL/min (70-130); Calcium 9.5 mg/dL (7.8-10.44); Carbon Dioxide 34 mmol/L (23-31); Chloride 96 mmol/L (98-107); Estimated GFR-MDRD Greater than 90; Glucose 103 mg/dL (83-110); Potassium 3.7 mmol/L (3.5-5.1); Sodium 138 mmol/L (136-145)
--- NOTE | 2018-01-28 06:22 | PDOC.FM ---
- Subjective Subjective: Pt had no subjective complaints today and overnight. She denies chest pain, shortness of breath, nausea, and vomiting. - Objective MAR Reviewed: Yes Vital Signs & Weight: Vital Signs (12 hours) Temp Pulse Resp BP BP Pulse Ox 01/28/18 04:00 98.3 F 86 18 126/77 94 L 01/27/18 21:09 86 108/55 L 01/27/18 20:00 98.7 F 86 18 108/55 L 92 L Weight Admit Weight 49.442 kg Weight 52.889 kg I&O: 01/26/18 01/27/18 01/28/18 06:59 06:59 06:59 Intake Total 1037 1177 720 Balance 1037 1177 720 Result Diagrams: 01/28/18 05:13 01/28/18 05:13 Phys Exam - Physical Examination Constitutional: NAD Respiratory: clear to auscultation bilateral Cardiovascular: RRR Gastrointestinal: soft, non-tender Musculoskeletal: no edema Psychiatric: normal affect Dx/Plan (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 - Pt went into afib with RVR and required a one time dose of digoxin 0.5 mg. Overnight her rate improved, however she had multiple pauses, the longest of which being 5.8 seconds. - Cardiology consulted. - Will discuss once again with pt's son the need for a pacemaker. (2) Subcapital fracture of femur Code(s): S72.019A - UNSP INTRACAPSULAR FRACTURE OF UNSP FEMUR, INIT FOR CLOS FX Status: Acute Qualifiers: Fracture type: closed Laterality: left Plan: Discussed case with Dr. Gómez who recommended surgical fixation vs. nonoperative management. Pt is does not have the capacity to consent for surgery. Pt's son has undecided on surgery vs. nonsurgical managment. Will touch base with Dr. Gómez tomorrow. (3) Dementia Code(s): F03.90 - UNSPECIFIED DEMENTIA WITHOUT BEHAVIORAL DISTURBANCE Status: Chronic Qualifiers: Dementia type: unspecified type Plan: - Continue home medications. - Continue re-orientation measures to reduce delirium. (4) HLD (hyperlipidemia) Code(s): E78.5 - HYPERLIPIDEMIA, UNSPECIFIED Status: Chronic Plan: Continue home meds. (5) History of seizure Code(s): Z87.898 - PERSONAL HISTORY OF OTHER SPECIFIED CONDITIONS Status: Chronic Plan: Continue home medications.
--- NOTE | 2018-01-28 09:02 | CON ---
DATE OF CONSULTATION: 01/27/2018 REASON FOR CARDIOLOGY CONSULTATION: Tachybrady syndrome with atrial flutter with rapid ventricular r esponse. HISTORY OF PRESENT ILLNESS: Ms. Kessler is 82 years old, very, very pleasant female with a significant history of atrial fibrillation with RVR and history of CVA, hypertension, hyperlipidemia, dementia, and seizure. The patient in the hospital at this moment due to the left femoral neck frac tures secondary to status post fall on 01/23/2018. The left femoral neck surgery is postponed at thi s moment. Due to the high risk, patient was found to have severe bradycardia. The heart rate was go ing down to 30s on 01/23/2018 and also patient is on the Coumadin due to the atrial fibrillation. Dayo luna's INR was 2.3 and today's the patient INRs have been 2.3 with Coumadin 2.5 mg once a day. Lorri cuellar received one Coumadin this afternoon. Patient has been in the telemetry floor and the telemetry record has been showing the heart rates going down to 50s when patient in sinus rhythm and going up t o 150 with atrial fibrillation with RVR. She has been in the sinus rhythm until last night when lorri cuellar's heart rates going down to 50s. Patient (04:07) on hold then middle of the night last nig ht, the patient's telemetry record shows the patient started having intermittent atrial fibrillation with RVR. Due to those events of the sick sinus syndrome with atrial fibrillation with RVR, Cardiolo gy consult was ordered for the possible pacemaker placement. However, due to dementia, patient does not know the patient needs a hip replacement, all the way the patient in the hospital at this moment. She does not even remember she fell a couple of days ago. At this moment, patient's history was ob tained from patient's previous medical record. At this moment, patient denied any chest pain, heavin ess, tightness, shortness of breath, dizziness, lightheadedness, fatigue or any other cardiac complai nts. At this moment, the patient does not have any cardiac workup. When the patient was in the hosp ital in 10/2017, patient has a similar symptom of the sick sinus syndrome with atrial fibrillation wi th RVR. At that time, patient refused any intervention such as pacemaker placement, ablation or any cardioversion at that time; however, due to needing of the left hip replacement, nurse told me the dayo luna's family members were to agree to have a pacemaker on this patient. PAST MEDICAL HISTORY: 1. Atrial fibrillation with rapid ventricular response. 2. Dementia. 3. Hypertension. 4. Hyperlipidemia. 5. Hyperkalemia. 6. Seizure. 7. Previous cancer. PAST SURGICAL HISTORY: Right facial reconstruction, colon surgery. FAMILY HISTORY: Noncontributory. SOCIAL HISTORY: Patient is living with her son at this moment according to the medical records and s he is an ex-smoker. She quit at the age in 1953. She denied alcohol or drug abuse. ALLERGIES: She is allergic to CODEINE. HOME MEDICATIONS: Levetiracetam 170 mg twice a day, sotalol 40 mg twice a day, Protonix 20 mg once a day, Norvasc 10 mg once a day, Coumadin 2.5 mg once a day, Aricept 10 mg once a day, atorvastatin 20 mg once a day. REVIEW OF SYSTEMS: Noncontributory because a history of dementia. PHYSICAL EXAMINATION: VITAL SIGNS: Blood pressure 132/94, pulse is 147 atrial fibrillation, O2 sat 94% with room air, resp iratory rate 19, temperature 99.3. GENERAL: Patient is confused, but patient is alert, able to follow command. No acute distress. Debo tavera is alert, oriented to self at this moment. HEENT: Head, patient has a hematoma on the left forehead. Eyes orbital bruise around the left eye. ENT: Mouth, oral mucosa moist without lesion. NECK: Supple. bilateral JVPs. Normal range of motion. LUNGS: Clear to auscultation bilaterally, no rales or rhonchi. No wheezing noted. CARDIAC: Irregularly irregular. No S3 or S4. 2+ pulses in the bilateral lower extremities. No edema in the bilateral lower extremities. Carotid pulses are present without bruit or thrill. ABDOMEN: Soft, nontender or mass to palpate. Bowel sounds are present. MUSCULOSKELETAL: Able to move upper extremities. However, when patient moved the lower extremities, patient complains of pain. NEUROLOGIC: Nonfocal. Patient is alert, oriented to self only at this moment. PSYCHIATRIC: Normal mood and affect. Patient has a history of more than 3.2 seconds and pulses this morning. According to the nurse, lorri ent was symptomatic. At this moment, the patient has atrial fibrillation with RVR, heart rates going up to 110s to 150s. ASSESSMENT AND PLAN: 1. Sick sinus syndrome. History of the pulses down to the 30s on 01/23/2018. According telemetry m sommer, patient's heart rates have been in the 150s today. At this moment, there are no family membe r present at the patient's bedside. I am unable to obtain patient's family decision at this moment, so hopefully we can discuss with one of the patient's family tomorrow about their decision of the pac emaker placement or further evaluation of her cardiac workup. 2. Atrial fibrillation with rapid ventricular response. We would like to continue sotalol 40 mg twi ce a day at this moment. We would like to hold the Coumadin at this moment due to possible pacemaker placement and we would like to start Lovenox 40 mg subQ twice a day. 3. Hypertension. Patient's blood pressure has been stable with current medication. We would like t o continue to monitor. 4. Hyperlipidemia. Patient on a statin medication. We would like to continue to monitor. 5. History of seizure, she is on Keppra at this moment, which is managed by patient's primary care broderick samuel. 6. Dementia. Patient's condition is stable at this moment. We would like to continue to monitor. Thank you very much for allowing the Cardiology service to consult this patient. We will follow nuzhat jj with the patient care team and make further recommendation as appropriate. Again, we would like to discuss with the patient's family about possible pacemaker placement in the near future.
[2018-01-28] MEDS: levETIRAcetam 500 MG TAB PO SCH ×2 (09:18→21:57)
[2018-01-28] MEDS: Donepezil HCl 5 MG TAB PO SCH (09:20)
[2018-01-28] MEDS: Sotalol HCl 80 MG TAB PO SCH (10:19)
--- NOTE | 2018-01-28 16:31 | PDOC.CTH ---
<Wen Lujan - Last Filed: 01/28/18 19:47> Cardiology Progress Note - Subjective The pt seen and examined. No overnight events. No cardiac complaints. She is resting in the bed. Very confused and she does not even remember she is in hospital due to s/p Lt fem fracture. - Objective Vital Signs Temp Pulse Resp BP Pulse Ox 01/28/18 11:40 98.2 F 88 19 143/83 H 96 01/28/18 10:19 91 01/28/18 09:00 98.4 F 01/28/18 08:54 98.4 F 91 18 142/98 H 97 Admit Weight 109 lb Weight 116 lb 9.6 oz 01/27/18 01/28/18 01/29/18 06:59 06:59 06:59 Intake Total 1177 820 Balance 1177 820 - Physical Examination General/Neuro: other: (confused) Lungs: CTA Heart: RRR Abdomen: soft Extremities: other: (No edema) - Telemetry Telemetry Rhythm: Afib and SR - Labs Result Diagrams: 01/28/18 05:13 01/28/18 05:13 Troponin/CKMB CK-MB (CK-2) 1.5 ng/mL (0-6.6) 01/23/18 09:53 Troponin I Less than 0.010 ng/mL (< 0.028) 01/23/18 15:49 - Assessment/Plan 1. Tachy-kameron syndrome with pauses - holding Sotalol at this moment due to total 9 episode of pauses last night, longest was 5.8 sec and last one was at 0400 this AM. Cont. to monitor; at this moment, family is not at bedside. Holding Coumadin and start Lovenox for possible PM placement in near future if family agrees. INR today was 2.0. 2. Afib with RVR - remains in SR since around 1200 on 01/28/18; cont. to monitor 3. Lt fem fx 2/2 hx of fall - sx is on hold due to very high risk 4. HTN - stable 5. Hyperlipidemia - On statin 6. Dementia - stable MAR reviewed <Addendum> The pt's son, Mr Sukumar Hutchins ([phone]); voiced understanding and agreed for the pt's PM placement after he was explained about the PM placement procedure and the risk included, but not limited to: hemorrhage, infection, perforation of leads, displacement of the leads, thrombosis, pneumothorax. Review of Systems - Review of Systems Constitutional: reports: see HPI EENTM: reports: see HPI Respiratory: reports: see HPI Cardiac (ROS): reports: see HPI ABD/GI: reports: see HPI : reports: see HPI <Dieter Ledesma Subhash - Last Filed: 01/28/18 22:40> Cardiology Progress Note - Objective Vital Signs Temp Pulse Resp BP Pulse Ox 01/28/18 16:30 98.1 F 80 18 137/67 98 01/28/18 11:40 98.2 F 88 19 143/83 H 96 Admit Weight 109 lb Weight 116 lb 9.6 oz 01/27/18 01/28/18 01/29/18 06:59 06:59 06:59 Intake Total 1177 820 480 Balance 1177 820 480 - Labs Result Diagrams: 01/28/18 05:13 01/28/18 05:13 Troponin/CKMB CK-MB (CK-2) 1.5 ng/mL (0-6.6) 01/23/18 09:53 Troponin I Less than 0.010 ng/mL (< 0.028) 01/23/18 15:49 - Assessment/Plan Pt. was seen and eval. by me. I have discussed the pt. and agree with the A/P by the ELLEN Lujan. Plan for pacemaker insertion when INR <1.5.
[2018-01-28] MEDS: Lactated Ringer's 1,000 ML IV SCH (18:32)
--- NOTE | 2018-01-28 20:51 | ADD-PRG ---
DATE OF SERVICE: 01/27/2018 This is an 82-year-old, unfortunate, female, who has a history of sick sinus syndrome where she will go in and out of severe bradycardia and then will go all the way up to tachycardia, atrial fibrillati on/flutter tachycardic situation. Family has not wanted a pacemaker secondary to age. She has had a fall with now left hip fracture. It sounds like Surgery really does not want to proceed with surger y, especially considering how her heart is, but family is debating that and patient is not really in any pain right now and does not really have any complaints. Vital signs are currently stable, but ba sically trying to decide with family what the next option is. May consider an LTAC or rehabilitation , although I do not know if she can actually give the hours to rehabilitation. May end up having to go to a residential, especially for not doing a surgery. Otherwise, if the family wants to proceed with surgery, then we will likely have to get a pacemaker placed before that. So, awaiting family de cision on that and appreciate palliative care's input.
--- NOTE | 2018-01-28 21:00 | ADD-PRG ---
DATE OF SERVICE: 01/28/2018 Please see the note from Dr. Fong for which I agree. The patient was seen, evaluated, examined, and discussed with the residents by at bedside. The patie nt is stable, although had an extremely long pause of greater than 5 seconds. It sounds like Cliff caruso understands this, and basically, we are awaiting to see if family wants to consider placing a pac emaker or not and that would be necessary before we did hip surgery, however, this is just a question of how to proceed on this unfortunate 82-year-old demented patient. If the family does not want to proceed with the pacemaker, then likely probably not going to be beneficial to go through surgery, as it may cause more harm than good. At that point in time, probably going to be bedridden and a hospi ce case, but we are awaiting family input to make this extremely difficult decision.
--- NOTE | 2018-01-28 21:53 | ADD-CON ---
ADDENDUM DATE OF CONSULTATION: 01/27/2018 INDICATION FOR CONSULTATION: An 82-year-old female with sick sinus syndrome with tachybrady. She reed s had episodes of atrial fibrillation or flutter. She has had a history of flutter or fibrillation i n the past, has been on oral anticoagulation in the form of Coumadin. She has been advised on her [facility] admission back in October that she might need to undergo pacemaker insertion, but she refused to do so, it will be difficult to control her flutter, but she was placed on sotalol and appeared to be doi ng relatively well until she developed again, atrial flutter. She has been back on the medications a nd then has also been given digoxin at times. She has been significantly bradycardic and at that myrna e, she remains in sinus rhythm and she is back and forth between sinus rhythm and atrial flutter or f ibrillation. She was seen by the hypoid gear tester also on her last admission and she was advised possible pacemaker insertion, but she has refused to undergo pacemaker insertion. She did have a 2.8 4 second pause earlier this afternoon associated with her atrial flutter and then a pause and then sh e converted back to sinus rhythm and then again went back to atrial flutter. She has been previously on Betapace 40 mg twice a day. She has been advised to increase this up to 80 mg twice a day, but g iven her size, she may do relatively well even with 40, but at this time, this is not maintaining her in sinus rhythm. She also was given a dose of digoxin one time to slow the heart rate that she was to have a rapid heart rates around 150-160 beats per minute. She has been having recent falls appare ntly. She does have a large hematoma or ecchymosis. She is still taking only Betapace 40 mg b.i.d. and has been given digoxin just one dose and we may need to continue the digoxin. Certainly, we will be more than willing to place a pacemaker in this lady that we can increase the dose of medications in order to hopefully maintain her in sinus rhythm. She is not a candidate to undergo an ablation. There is no family available at this time. We will wait for the family to arrive either later today or tomorrow to discuss the possible pacemaker insertion. Also, we will need to hold the Coumadin in order to proceed with a pacemaker insertion if the family and the patient are agreeable. According t o what I have heard from the nursing staff that the family apparently now is agreeable to proceed wit h the pacemaker insertion. This patient is obviously demented and is unable to make decisions for he rself anymore and this will need to be left up to the decision of the medical power of workers compensation attorney, andria hines I believe would be her son. We will try to discuss her case with him tomorrow and then we can proc eed with pacemaker insertion and most likely on Monday or Monday depending on the INR which will nee d to be hopefully less than 1.5 certainly less than 2.0 in this otherwise fragile female. We would b e more than happy to continue to follow her with you, but at this time, cardiac status is somewhat qu estionable with the intermittent atrial flutter with rapid heart rate in this elderly female. She is a DNR status, but we will continue to follow her and treat her appropriately.
[2018-01-28] MEDS: Atorvastatin Calcium 40 MG TAB PO SCH (21:57)
[2018-01-28] MEDS: Enoxaparin Sodium 40 MG/0.4 ML SYRINGE SC SCH (21:58)
[2018-01-29 06:07] LABS: INR-International Normal Ratio 2.3; PTT 58.7 SEC (22.9-36.1); Prothrombin Time 25.3 SEC (12.0-14.7)
[2018-01-29 06:15] LABS: Anion Gap 11 mmol/L (10-20); BUN (Urea Nitrogen) 16 mg/dL (9.8-20.1); Calc. Creatinine Clearance 63 mL/min (70-130); Calcium 8.9 mg/dL (7.8-10.44); Carbon Dioxide 32 mmol/L (23-31); Chloride 98 mmol/L (98-107); Estimated GFR-MDRD Greater than 90; Glucose 95 mg/dL (83-110); Potassium 3.6 mmol/L (3.5-5.1); Sodium 137 mmol/L (136-145)
[2018-01-29 06:27] LABS: Band 8 % (5-11); Eosinophils 3 % (0-10); Hemoglobin 11.7 g/dL (12.0-16.0); Lymphocytes 19 % (21-51); MDiff Complete? YES; Mean Corpuscular HGB CONC 33.9 g/dL (32.0-36.0); Mean Corpuscular Hemoglobin 30.1 pg (27.0-31.0); Mean Corpuscular Volume 88.8 fL (78.0-98.0); Mean Platelet Volume 7.3 fL (7.4-10.4); Metamyelocyte 1 % (0-0); Monocytes 10 % (0-10); Neutrophil 59 % (42-75); PLT Morphology Comment Appears Adequate; Platelet Count 249 thou/uL (130-400); RBC Distribution Width 11.9 % (11.5-14.5); Red Blood Cell (RBC) Count 3.88 mill/uL (4.20-5.40)
[2018-01-29] MEDS: Lactated Ringer's 1,000 ML IV SCH ×2 (06:30→20:40)
[2018-01-29] MEDS: Donepezil HCl 5 MG TAB PO SCH (09:06)
[2018-01-29] MEDS: levETIRAcetam 500 MG TAB PO SCH ×2 (09:06→21:37)
[2018-01-29] MEDS: Enoxaparin Sodium 40 MG/0.4 ML SYRINGE SC SCH (09:09)
--- NOTE | 2018-01-29 09:42 | PDOC.FM ---
- Subjective Subjective: Patient is doing well this morning. She reports no pain. She continues to be confused, AOx1. Nursing staff with no concerns. Plan to touch base with family today to again discuss decisions on operations. - Objective MAR Reviewed: Yes Vital Signs & Weight: Vital Signs (12 hours) Temp Pulse Resp BP Pulse Ox 01/29/18 08:15 98.0 F 66 18 178/74 H 97 01/29/18 04:20 98.2 F 78 20 144/68 H 96 01/28/18 22:50 98.2 F 65 20 125/60 93 L Weight Admit Weight 49.442 kg Weight 54.431 kg I&O: 01/28/18 01/29/18 01/30/18 06:59 06:59 06:59 Intake Total 820 1500 Balance 820 1500 Result Diagrams: 01/29/18 05:30 01/29/18 05:30 <ySlvia Mcdonald - Last Filed: 01/29/18 09:42> - Objective Vital Signs & Weight: Vital Signs (12 hours) Temp Pulse Pulse Pulse Resp BP BP 01/29/18 11:53 98.1 F 125 H 17 01/29/18 08:15 98.0 F 66 18 01/29/18 08:13 72 75 178/74 H 165/71 H 01/29/18 08:10 98.0 F 66 18 BP Pulse Ox Pulse Ox Pulse Ox 01/29/18 11:53 121/88 98 01/29/18 08:15 178/74 H 97 01/29/18 08:13 96 96 01/29/18 08:10 97 Weight Admit Weight 49.442 kg Weight 54.431 kg I&O: 01/28/18 01/29/18 01/30/18 06:59 06:59 06:59 Intake Total 820 1500 Balance 820 1500 Result Diagrams: 01/29/18 05:30 01/29/18 05:30 <Kalyan Dorado - Last Filed: 01/29/18 16:26> Phys Exam - Physical Examination Constitutional: NAD HEENT: moist MMs R eye with crusted discharge, no erythema, L forehead hematoma Respiratory: no wheezing, no rales, clear to auscultation bilateral systolic murmur 2/6 Gastrointestinal: soft, non-tender trace LE edema b/l Neurological: non-focal, normal sensation, moves all 4 limbs Deviation from normal: AOx1 Skin: cap refill <2 seconds <Sylvia Mcdonald - Last Filed: 01/29/18 09:42> Dx/Plan (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 Status: Acute (2) Subcapital fracture of femur Code(s): S72.019A - UNSP INTRACAPSULAR FRACTURE OF UNSP FEMUR, INIT FOR CLOS FX Status: Acute QualifierTitle: Fracture type: closed Laterality: left (3) History of seizure Code(s): Z87.898 - PERSONAL HISTORY OF OTHER SPECIFIED CONDITIONS Status: Chronic (4) Dementia Code(s): F03.90 - UNSPECIFIED DEMENTIA WITHOUT BEHAVIORAL DISTURBANCE Status: Chronic QualifierTitle: Dementia type: unspecified type (5) HLD (hyperlipidemia) Code(s): E78.5 - HYPERLIPIDEMIA, UNSPECIFIED Status: Chronic (6) Hypotension Status: Resolved - Plan Plan: Dx/Plan Tachy-Aleksey Syndrome - Pt continues to alternate between sinus rhythm and atrial fibrillation. Overnight was NSR in the 70's - No pauses overnight. - Cardiology following. - Per nursing staff, family wants pacemaker. Patient will need correction of INR prior to this. - INR today 2.3, will speak with family to confirm surgery and give Vit K. - continue to hold coumadin - recheck INR tomorrow Subcapital Femur Fx Discussed case with Dr. Gómez who recommended surgical fixation vs. nonoperative management. Pt is does not have the capacity to consent for surgery. Pt's son is undecided on surgery vs. nonsurgical managment. Will touch base with Dr. Gómez today. Dementia - Continue home medications. - Continue re-orientation measures to reduce delirium. HLD Continue home meds. Hx of Seizure Continue home medications. <Sylvia Mcdonald - Last Filed: 01/29/18 09:42> Attending Addendum - Attending Addendum Date/Time: 01/29/18 4359 I personally evaluated the patient this morning and discussed the management with Dr. Mcdonald. I agree with the History, Examination, Assessment and Plan documented above with any addition or exceptions noted below. She is currently back in Atrial Fibrillation at the time of my visit. She is alert and pleasantly demented/forgetful. INR >2 so will plan to give 1 mg Vit. Sub Q, and recheck INR this evening in hopes she can go for Pacemaker soon. Family deciding whether they want ORIF vs Non-opertive treatment for her hip fracture. [facility] <Kalyan Dorado - Last Filed: 01/29/18 16:26>
--- NOTE | 2018-01-29 09:48 | PDOC.CTH ---
Cardiology Progress Note - Subjective No new issues. She denies any hip pain, no chest pain or palpitations. - Objective Vital Signs Temp Pulse Resp BP Pulse Ox 01/29/18 08:15 98.0 F 66 18 178/74 H 97 01/29/18 04:20 98.2 F 78 20 144/68 H 96 01/28/18 22:50 98.2 F 65 20 125/60 93 L Admit Weight 109 lb Weight 120 lb 01/28/18 01/29/18 01/30/18 06:59 06:59 06:59 Intake Total 820 1500 Balance 820 1500 - Physical Examination General/Neuro: NAD Neck: no JVD present Lungs: CTA, unlabored respirations Heart: other: (Irreg Tachy 110's to 120's) Abdomen: NT/ND, soft Extremities: other: (no edema) - Telemetry Telemetry Rhythm: Afib HR 110-120 - Labs Result Diagrams: 01/29/18 05:30 01/29/18 05:30 Troponin/CKMB CK-MB (CK-2) 1.5 ng/mL (0-6.6) 01/23/18 09:53 Troponin I Less than 0.010 ng/mL (< 0.028) 01/23/18 15:49 - Assessment/Plan 1. Afib RVR 2. Sinus pauses (5.8 seconds longest) 3. Tachy-Aleksey syndrome 4. Dementia 5. Hip fracture PLAN: - PPM to be placed once INR under 1.5 - Will hold on Lovenox today as she remains fully anticoagulated with INR at 2.3 today. - Will let her Afib run in the 110's to 120's for now for the next few days as I am more concerned about bradycardia and pauses if we restart AV ebonie blocking agents. She is asymptomatic and RVR not affecting her BP. - Will leave NPO past midnight in case INR at goal for procedure tomorrow if not will feed her and will plan on Monday.
[2018-01-29] MEDS ORDERED: Sotalol HCl 80 MG TAB PO SCH ×2 (10:00→21:00)
[2018-01-29] MEDS: Atorvastatin Calcium 40 MG TAB PO SCH (21:37)
[2018-01-30] MEDS ORDERED: Digoxin 0.5 MG/2 ML AMP SLOW IVP SCH (04:30)
[2018-01-30 06:05] LABS: #Eosinphils 0.1 thou/uL (0.0-0.7); #Lymphocytes 1.2 thou/uL (1.20-3.40); #Monocytes 0.8 thou/uL (0.11-0.59); #Neutrophils 6.2 thou/uL (1.40-6.50); %Basophils 0.1 % (0.0-1.0); %Eosinophils 0.9 % (0.0-10.0); %Lymphocytes 14.5 % (21.0-51.0); %Monocytes 9.9 % (0.0-10.0); %Neutrophils 74.6 % (42.0-75.0); Hemoglobin 12.5 g/dL (12.0-16.0); Mean Corpuscular HGB CONC 33.3 g/dL (32.0-36.0); Mean Corpuscular Hemoglobin 29.3 pg (27.0-31.0); Mean Corpuscular Volume 87.9 fL (78.0-98.0); Mean Platelet Volume 7.4 fL (7.4-10.4); Platelet Count 271 thou/uL (130-400); Red Blood Cell (RBC) Count 4.26 mill/uL (4.20-5.40); White Blood Cell (WBC) Count 8.3 thou/uL (4.8-10.8)
[2018-01-30 06:09] LABS: INR-International Normal Ratio 1.9; PTT 37.9 SEC (22.9-36.1); Prothrombin Time 22.2 SEC (12.0-14.7)
[2018-01-30 06:14] LABS: Anion Gap 11 mmol/L (10-20); BUN (Urea Nitrogen) 8 mg/dL (9.8-20.1); Calc. Creatinine Clearance 69 mL/min (70-130); Calcium 8.7 mg/dL (7.8-10.44); Carbon Dioxide 31 mmol/L (23-31); Chloride 94 mmol/L (98-107); Estimated GFR-MDRD Greater than 90; Glucose 108 mg/dL (83-110); Potassium 3.4 mmol/L (3.5-5.1); Sodium 133 mmol/L (136-145)
--- NOTE | 2018-01-30 07:31 | PDOC.FM ---
- Subjective Subjective: Patient is resting in her bed. She has increased respiratory rate and clinically appears ill. She is warm and clammy. She is AOx1 which is her baseline. She denies pain anywhere. - Objective MAR Reviewed: Yes Vital Signs & Weight: Vital Signs (12 hours) Temp Pulse Resp BP Pulse Ox 01/30/18 05:34 125 H 01/30/18 04:00 98.5 F 122 H 16 167/96 H 95 01/30/18 00:00 98.9 F 78 18 174/85 H 97 01/29/18 20:00 98.7 F 74 18 158/71 H 98 Weight Admit Weight 49.442 kg Weight 56.608 kg I&O: 01/29/18 01/30/18 01/31/18 06:59 06:59 06:59 Intake Total 1500 1210 Balance 1500 1210 Result Diagrams: 01/30/18 04:59 01/30/18 04:59 <Sylvia Mcdonald - Last Filed: 01/30/18 09:12> - Objective Vital Signs & Weight: Vital Signs (12 hours) Temp Pulse Resp BP Pulse Ox 01/30/18 07:40 97.7 F 74 18 169/74 H 95 01/30/18 05:34 125 H 01/30/18 04:00 98.5 F 122 H 16 167/96 H 95 Weight Admit Weight 49.442 kg Weight 56.608 kg I&O: 01/29/18 01/30/18 01/31/18 06:59 06:59 06:59 Intake Total 1500 1210 Balance 1500 1210 Result Diagrams: 01/30/18 04:59 01/30/18 04:59 <Kalyan Dorado - Last Filed: 01/30/18 14:12> Phys Exam - Physical Examination increased respiratory rate and effort, warm and clammy HEENT: moist MMs, sclera anicteric R eye with thick clear discharge Respiratory: no wheezing, no rales, clear to auscultation bilateral increased effort, moving air well Cardiovascular: no significant murmur tachycardic Gastrointestinal: no distention, positive bowel sounds guarded, ttp in suprapubic region Musculoskeletal: no edema, pulses present Neurological: moves all 4 limbs Deviation from normal: AOx1 <Sylvia Mcdonald Last Filed: 01/30/18 09:12> Dx/Plan (1) Tachy-kameron syndrome Code(s): I49.5 - SICK SINUS SYNDROME Status: Acute (2) Subcapital fracture of femur Code(s): S72.019A - UNSP INTRACAPSULAR FRACTURE OF UNSP FEMUR, INIT FOR CLOS FX Status: Acute QualifierTitle: Fracture type: closed Laterality: left (3) History of seizure Code(s): Z87.898 - PERSONAL HISTORY OF OTHER SPECIFIED CONDITIONS Status: Chronic (4) Dementia Code(s): F03.90 - UNSPECIFIED DEMENTIA WITHOUT BEHAVIORAL DISTURBANCE Status: Chronic QualifierTitle: Dementia type: unspecified type (5) HLD (hyperlipidemia) Code(s): E78.5 - HYPERLIPIDEMIA, UNSPECIFIED Status: Chronic (6) Hypotension Status: Resolved (7) Hypokalemia Code(s): E87.6 - HYPOKALEMIA Status: Resolved - Plan Plan: Tachy-Kameron Syndrome - Pt continues to alternate between sinus rhythm and atrial fibrillation. Overnight was NSR in the 70's but is currently Afib with RVR - She was given Digoxin 0.25mg earlier this morning. Dr. Stone wants to be gentle with rate controlling meds due to her instability with tachy/kameron syndrome and hx of pauses of her rhythm. - No pauses overnight. - Cardiology following. - Pacemaker pending INR correction - INR today 1.9 today - continue to hold coumadin - recheck INR tomorrow Tachypnea and Abd Pain on exam - on exam patient with increased RR to 24 - patient also warm and clammy. - Abd pain in suprapubic area. Will get UA, and repeat vitals. wBC wnl this am. - concern for developing infection although tachypnea could be related to her tachy-kameron syndrome with current HR of 130's. Subcapital Femur Fx - Discussed case with Dr. Gómez who recommended surgical fixation vs. nonoperative management. - Pt is does not have the capacity to consent for surgery. - Pt's son is undecided on surgery vs. nonsurgical managment. - Discuss again with family after pacemaker placement Hypokalemia - replace with 40meq PO K-dur - check Mg and Phos Hypomagnesemia - 0.8 today - replace with 2g IV Magnesium Sulfate - recheck tomorrow Dementia - Continue home medications. - Continue re-orientation measures to reduce delirium. HLD Continue home meds. Hx of Seizure Continue home medications. <Sylvia Mcdonald - Last Filed: 01/30/18 09:12> Attending Addendum - Attending Addendum Date/Time: 01/30/18 2493 I personally evaluated the patient and discussed the management with Dr. Mcdonald. I agree with the History, Examination, Assessment and Plan documented above with any addition or exceptions noted below. At the time of my exam she does not appear ill. Her lungs are clear and Cor: tachy rate ~140 appears to be back in/out of a-fib with RVR. INR is 1.9. Await pacemaker planned for tomorrow if INF is at or below 1.5. [facility] <Kalyan Dorado - Last Filed: 01/30/18 14:12>
[2018-01-30] MEDS ORDERED: Potassium Chloride 20 MEQ TAB PO SCH (07:45)
[2018-01-30 07:57] LABS: Phosphorus 2.6 mg/dL (2.3-4.7)
[2018-01-30 08:03] LABS: Magnesium 0.8 mg/dL (1.6-2.6)
[2018-01-30] MEDS ORDERED: Magnesium 2 GM/NS 0.9% 100 ML 2 GM in Premix Bag 1 BAG IVPB SCH (09:15)
[2018-01-30] MEDS: Magnesium Oxide 400 MG TAB PO SCH ×4 (09:27→21:36)
[2018-01-30] MEDS: levETIRAcetam 500 MG TAB PO SCH ×2 (09:27→21:35)
[2018-01-30] MEDS: Amlodipine 5 MG TAB PO SCH (09:27)
[2018-01-30] MEDS: Donepezil HCl 5 MG TAB PO SCH (09:27)
[2018-01-30] MEDS ORDERED: Enoxaparin Sodium 60 MG/0.6 ML SYRINGE SC SCH (10:15)
[2018-01-30 11:09] LABS: Bilirubin Negative (Negative); Blood, Urine Negative (Negative); Clarity CLEAR (Clear); Glucose, Urine (Dipstick) Negative (Negative); Leukocyte Negative (Negative); Nitrite Negative (Negative); Protein, Urine (Dipstick) Negative (Neg-Trace); pH, Urine 7.5 (5.0-9.0)
[2018-01-30] MEDS: Lactated Ringer's 1,000 ML IV SCH (12:16)
--- NOTE | 2018-01-30 17:42 | PDOC.CTH ---
Cardiology Progress Note - Subjective No new issues. - Objective Vital Signs Temp Pulse Resp BP Pulse Ox 01/30/18 12:32 98.1 F 96 16 116/64 96 01/30/18 08:00 97.7 F 74 18 93 L 01/30/18 07:40 97.7 F 74 18 169/74 H 95 Admit Weight 109 lb Weight 124 lb 12.8 oz 01/29/18 01/30/18 01/31/18 06:59 06:59 06:59 Intake Total 1500 1210 Balance 1500 1210 - Physical Examination General/Neuro: NAD Neck: no JVD present Lungs: CTA, unlabored respirations Heart: RRR Abdomen: NT/ND Extremities: other: (no edema.) - Telemetry Telemetry Rhythm: NSR - Labs Result Diagrams: 01/30/18 04:59 01/30/18 04:59 Troponin/CKMB CK-MB (CK-2) 1.5 ng/mL (0-6.6) 01/23/18 09:53 Troponin I Less than 0.010 ng/mL (< 0.028) 01/23/18 15:49 - Assessment/Plan 1. Afib RVR, back in sinus. 2. Sinus pauses (5.8 seconds longest) 3. Tachy-Aleksey syndrome 4. Dementia 5. Hip fracture PLAN: - PPM to be placed once INR under 1.5 - Lovenox today as her INR at 1.9 subtherapeutic. - She went RVR in afib HR in the 150's and suddenly she convertedto a junctional rhythm in the low 40's and then has been sinus ever since. Clearly she has sinus node dysfunction. - Will leave NPO past midnight as most likely her INR will be low enough in the morning.
[2018-01-30 18:37] LABS: INR-International Normal Ratio 1.7; Prothrombin Time 20.1 SEC (12.0-14.7)
[2018-01-30] MEDS: Atorvastatin Calcium 40 MG TAB PO SCH (21:35)
[2018-01-31] MEDS: Lactated Ringer's 1,000 ML IV SCH ×2 (03:44→20:03)
[2018-01-31 06:03] LABS: #Lymphocytes 1.1 thou/uL (1.20-3.40); #Monocytes 0.9 thou/uL (0.11-0.59); #Neutrophils 5.6 thou/uL (1.40-6.50); %Basophils 0.1 % (0.0-1.0); %Eosinophils 0.4 % (0.0-10.0); %Lymphocytes 14.1 % (21.0-51.0); %Monocytes 12.2 % (0.0-10.0); %Neutrophils 73.2 % (42.0-75.0); Hemoglobin 12.1 g/dL (12.0-16.0); Mean Corpuscular HGB CONC 32.9 g/dL (32.0-36.0); Mean Corpuscular Hemoglobin 29.1 pg (27.0-31.0); Mean Corpuscular Volume 88.5 fL (78.0-98.0); Mean Platelet Volume 7.4 fL (7.4-10.4); Platelet Count 283 thou/uL (130-400); RBC Distribution Width 11.9 % (11.5-14.5); Red Blood Cell (RBC) Count 4.16 mill/uL (4.20-5.40); White Blood Cell (WBC) Count 7.6 thou/uL (4.8-10.8)
[2018-01-31 06:24] LABS: INR-International Normal Ratio 1.5; PTT 39.7 SEC (22.9-36.1); Prothrombin Time 17.9 SEC (12.0-14.7)
[2018-01-31 06:27] LABS: Anion Gap 12 mmol/L (10-20); BUN (Urea Nitrogen) 8 mg/dL (9.8-20.1); Calc. Creatinine Clearance 67 mL/min (70-130); Calcium 9.1 mg/dL (7.8-10.44); Carbon Dioxide 32 mmol/L (23-31); Chloride 91 mmol/L (98-107); Estimated GFR-MDRD Greater than 90; Glucose 98 mg/dL (83-110); Magnesium 1.2 mg/dL (1.6-2.6); Phosphorus 2.8 mg/dL (2.3-4.7); Potassium 3.9 mmol/L (3.5-5.1); Sodium 131 mmol/L (136-145)
[2018-01-31] MEDS ORDERED: Magnesium Sulfate 1 GM, Admixture Fee 1 EACH in Sodium Chloride 0.9% 100 ML IVPB SCH (08:00)
[2018-01-31] MEDS ORDERED: NS IVPB SCH (08:00)
[2018-01-31] MEDS ORDERED: MAGNESIUM IVPB SCH (08:00)
[2018-01-31] MEDS: levETIRAcetam 500 MG TAB PO SCH ×2 (08:33→20:02)
[2018-01-31] MEDS: Amlodipine 5 MG TAB PO SCH (08:33)
[2018-01-31] MEDS: Magnesium Oxide 400 MG TAB PO SCH ×4 (08:34→20:03)
[2018-01-31] MEDS: Enoxaparin Sodium 40 MG/0.4 ML SYRINGE SC SCH ×2 (08:34→19:47)
[2018-01-31] MEDS: Donepezil HCl 5 MG TAB PO SCH (08:34)
--- NOTE | 2018-01-31 12:00 | PDOC.FM ---
- Subjective Subjective: Patient is resting comfortably in bed this am. She has no concerns or complaints. She is AOx1 which is her baseline. Overnight she did have some Afib with RVR but is currently NSR with HR 80. - Objective MAR Reviewed: Yes Vital Signs & Weight: Vital Signs (12 hours) Temp Pulse Resp BP Pulse Ox 01/31/18 07:13 98.7 F 89 16 165/77 H 100 01/31/18 03:27 98.7 F 80 16 130/65 99 01/31/18 00:00 155/87 H Weight Admit Weight 49.442 kg Weight 53.751 kg I&O: 01/30/18 01/31/18 02/01/18 06:59 06:59 06:59 Intake Total 1210 3388 Balance 1210 3388 Result Diagrams: 01/31/18 05:33 01/31/18 05:33 <Sylvia Mcdonald - Last Filed: 01/31/18 12:01> - Objective Vital Signs & Weight: Vital Signs (12 hours) Temp Pulse Resp BP Pulse Ox 01/31/18 11:23 98.7 F 82 16 147/68 H 98 01/31/18 07:13 98.7 F 89 16 165/77 H 100 01/31/18 03:27 98.7 F 80 16 130/65 99 Weight Admit Weight 49.442 kg Weight 53.751 kg I&O: 01/30/18 01/31/18 02/01/18 06:59 06:59 06:59 Intake Total 1210 3388 Balance 1210 3388 Result Diagrams: 01/31/18 05:33 01/31/18 05:33 <Kalyan Dorado - Last Filed: 01/31/18 15:20> Phys Exam - Physical Examination Constitutional: NAD HEENT: moist MMs L forehead contusion and hematoma Respiratory: no wheezing, no rales, clear to auscultation bilateral Cardiovascular: RRR, no significant murmur Gastrointestinal: soft, non-tender Musculoskeletal: no edema, pulses present Neurological: moves all 4 limbs Deviation from normal: AOx1 <Sylvia Mcdonald - Last Filed: 01/31/18 12:01> Dx/Plan (1) Tachy-kameron syndrome Code(s): 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 - SICK SINUS SYNDROME Status: Acute (2) Subcapital fracture of femur Code(s): S72.019A - UNSP INTRACAPSULAR FRACTURE OF UNSP FEMUR, INIT FOR CLOS FX Status: Acute QualifierTitle: Fracture type: closed Laterality: left (3) History of seizure Code(s): Z87.898 - PERSONAL HISTORY OF OTHER SPECIFIED CONDITIONS Status: Chronic (4) Dementia Code(s): F03.90 - UNSPECIFIED DEMENTIA WITHOUT BEHAVIORAL DISTURBANCE Status: Chronic QualifierTitle: Dementia type: unspecified type (5) HLD (hyperlipidemia) Code(s): E78.5 - HYPERLIPIDEMIA, UNSPECIFIED Status: Chronic (6) Hypotension Status: Resolved (7) Hypokalemia Code(s): E87.6 - HYPOKALEMIA Status: Resolved - Plan Plan: Tachy-Kameron Syndrome - Pt continues to alternate between sinus rhythm and atrial fibrillation. Overnight had a run of Afib with RVR but is now sinus. - Dr. Stone wants to be gentle with rate controlling meds due to her instability with tachy/kameron syndrome and hx of pauses of her rhythm. - No pauses overnight. - Cardiology following. - Pacemaker placement tomorrow - INR today 1.5 today - continue to hold coumadin, lovenox for ppx - recheck INR tomorrow Subcapital Femur Fx - We have discussed case with Dr. Gómez earlier this week who recommended surgical fixation vs. nonoperative management. - Pt is does not have the capacity to consent for surgery. - Pt's son is undecided on surgery vs. nonsurgical managment. - Discuss again with family after pacemaker placement Hypomagnesemia - 1.2 today - replace with 1g IV Magnesium Sulfate - recheck tomorrow Dementia - Continue home medications. - Continue re-orientation measures to reduce delirium. HLD Continue home meds. Hx of Seizure Continue home medications. Tachypnea and Abd Pain on exam, improved - on exam patient with increased RR to 24 - patient also warm and clammy. - Abd pain in suprapubic area. Will get UA, and repeat vitals. wBC wnl this am. - concern for developing infection although tachypnea could be related to her tachy-kameron syndrome with current HR of 130's. Hypokalemia, resolved - continue to monitor <Sylvia Mcdonald - Last Filed: 01/31/18 12:01> Attending Addendum - Attending Addendum Date/Time: 01/31/18 9719 I personally evaluated the patient and discussed the management with Dr. Manning. I agree with the History, Examination, Assessment and Plan documented above with any addition or exceptions noted below. She is stable. INR is 1.5. Dr. Ledesma plans to insert pacemaker tomorrow. [facility] <Kalyan Dorado - Last Filed: 01/31/18 15:20>
--- NOTE | 2018-01-31 18:58 | PDOC.CTH ---
Cardiology Progress Note - Subjective Doing well. No new issues. - Objective Vital Signs Temp Pulse Resp BP Pulse Ox 01/31/18 11:23 98.7 F 82 16 147/68 H 98 01/31/18 07:13 98.7 F 89 16 165/77 H 100 Admit Weight 109 lb Weight 118 lb 8 oz 01/30/18 01/31/18 02/01/18 06:59 06:59 06:59 Intake Total 1210 3388 Balance 1210 3388 - Physical Examination General/Neuro: NAD Neck: no JVD present Lungs: CTA, unlabored respirations Heart: RRR Abdomen: NT/ND Extremities: other: (no edema.) - Telemetry Telemetry Rhythm: NSR - Labs Result Diagrams: 01/31/18 05:33 01/31/18 05:33 Troponin/CKMB CK-MB (CK-2) 1.5 ng/mL (0-6.6) 01/23/18 09:53 Troponin I Less than 0.010 ng/mL (< 0.028) 01/23/18 15:49 - Assessment/Plan 1. Afib RVR, back in sinus. 2. Sinus pauses (5.8 seconds longest) 3. Tachy-Aleksey syndrome 4. Dementia 5. Hip fracture PLAN: - Plan on PPM tomorrow 7am by Dr. Ledesma. - She can have her hip surgery any time after PPM placement.
--- NOTE | 2018-01-31 19:10 | RAD ---
TWO VIEWS LEFT HIP 01/31/18 HISTORY: Left hip fracture. COMPARISON: 01/23/18. FINDINGS: As noted on prior exam, there is a subcapital left femoral neck fracture with mild impaction of the f racture fragments. Alignment of the fracture fragments are unchanged. There is no evidence of a dislo cation. Heterotopic ossification is again seen adjacent to the left iliac bone. No other interval heidi nge. IMPRESSION: Stable alignment of subcapital left femoral neck fracture which does demonstrate mild impaction of fr acture fragments. POS: [facility]
[2018-01-31] MEDS ORDERED: Digoxin 0.5 MG/2 ML AMP SLOW IVP SCH (19:15)
[2018-01-31] MEDS: Atorvastatin Calcium 40 MG TAB PO SCH (20:03)
[2018-02-01] MEDS: Lactated Ringer's 1,000 ML IV SCH (03:45)
[2018-02-01 04:54] LABS: INR-International Normal Ratio 1.3; PTT 43.5 SEC (22.9-36.1)
[2018-02-01 05:22] LABS: Anion Gap 13 mmol/L (10-20); BUN (Urea Nitrogen) 8 mg/dL (9.8-20.1); Calc. Creatinine Clearance 75 mL/min (70-130); Calcium 9.4 mg/dL (7.8-10.44); Carbon Dioxide 30 mmol/L (23-31); Chloride 93 mmol/L (98-107); Estimated GFR-MDRD Greater than 90; Glucose 94 mg/dL (83-110); Magnesium 1.3 mg/dL (1.6-2.6); Potassium 3.5 mmol/L (3.5-5.1); Sodium 132 mmol/L (136-145)
[2018-02-01] MEDS ORDERED: CEFAZOLIN/Water 2 GM/20 ML SYRINGE ONE (06:47)
[2018-02-01] MEDS ORDERED: Gentamicin 80 MG/2 ML VIAL ONE (06:49)
[2018-02-01] MEDS ORDERED: CEFAZOLIN 1 GM VIAL ONE (06:49)
--- NOTE | 2018-02-01 08:03 | PDOC.FM ---
- Subjective Subjective: Patient just received her pacemaker. She is resting comfortably without pain. She is currently in Aflutter with a rate of 90's. She denies CP and palpitations. She is at baseline level of confusion per family. No acute events overnight. - Objective MAR Reviewed: Yes Vital Signs & Weight: Vital Signs (12 hours) Temp Pulse Resp BP Pulse Ox 02/01/18 03:55 98.7 F 113 H 20 138/70 96 01/31/18 23:43 98.7 F 103 H 21 H 105/57 L 99 Weight Admit Weight 49.442 kg Weight 54.522 kg I&O: 01/31/18 02/01/18 02/02/18 06:59 06:59 06:59 Intake Total 3388 936 Balance 3388 936 Result Diagrams: 01/31/18 05:33 02/01/18 04:28 <Sylvia Mcdonald - Last Filed: 02/01/18 11:39> - Objective Vital Signs & Weight: Vital Signs (12 hours) Temp Pulse Resp BP BP Pulse Ox 02/01/18 09:15 103 H 131/76 02/01/18 03:55 98.7 F 113 H 20 138/70 96 Weight Admit Weight 49.442 kg Weight 54.522 kg I&O: 01/31/18 02/01/18 02/02/18 06:59 06:59 06:59 Intake Total 3388 936 Balance 3388 936 Result Diagrams: 01/31/18 05:33 02/01/18 04:28 <Kalyan Dorado - Last Filed: 02/01/18 15:25> Phys Exam - Physical Examination Constitutional: NAD HEENT: moist MMs Respiratory: no wheezing, no rales, clear to auscultation bilateral chest with new incision site of pacemaker placement, mildly erythematous well approximated incision site without drainage, irregular HR, 3/6 systoli Gastrointestinal: soft, non-tender, no distention, positive bowel sounds Musculoskeletal: no edema, pulses present Neurological: moves all 4 limbs Psychiatric: normal affect Deviation from normal: AOx1 Skin: cap refill <2 seconds <Sylvia Mcdonald - Last Filed: 02/01/18 11:39> Dx/Plan (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 Status: Acute (2) Subcapital fracture of femur Code(s): S72.019A - UNSP INTRACAPSULAR FRACTURE OF UNSP FEMUR, INIT FOR CLOS FX Status: Acute QualifierTitle: Fracture type: closed Laterality: left (3) History of seizure Code(s): Z87.898 - PERSONAL HISTORY OF OTHER SPECIFIED CONDITIONS Status: Chronic (4) Dementia Code(s): F03.90 - UNSPECIFIED DEMENTIA WITHOUT BEHAVIORAL DISTURBANCE Status: Chronic QualifierTitle: Dementia type: unspecified type (5) HLD (hyperlipidemia) Code(s): E78.5 - HYPERLIPIDEMIA, UNSPECIFIED Status: Chronic (6) Hypotension Status: Resolved (7) Hypokalemia Code(s): E87.6 - HYPOKALEMIA Status: Resolved - Plan Plan: Tachy-Aleksey Syndrome - Pt with pacemaker in place, currently in Aflutter, will restart home Sotalol - Cardiology on the case - INR today 1.3 today - continue to hold coumadin, give lovenox for ppx - recheck INR tomorrow Subcapital Femur Fx - We have discussed case with Dr. Gómez earlier this week who recommended surgical fixation vs. nonoperative management. - Pt is does not have the capacity to consent for surgery. - Family to discuss with Bruno today but likely surgical intervention today. Hypomagnesemia - 1.3 today - replace with 1g IV Magnesium Sulfate - recheck tomorrow - d/c PPI as potential cause of hypomagnesemia, other cause could be antiarrhythmics although hasn't been consistently given Dementia - Continue home medications. - Continue re-orientation measures to reduce delirium. HLD Continue home meds. Hx of Seizure Continue home medications. Hypokalemia, resolved - continue to monitor <Sylvia Mcdonald - Last Filed: 02/01/18 11:39> Attending Addendum - Attending Addendum Date/Time: 02/01/18 6838 I personally evaluated the patient and discussed the management with Dr. Mcdonald. I agree with the History, Examination, Assessment and Plan documented above with any addition or exceptions noted below. Sleepy. Pacemaker insertion site looks good. Cor: RRR. Lungs: CTA. Abd: soft non -tender. Back in sinus rhythm after sotolol restarted. Family to consider proceeding with ORIF for femoral neck fracture. [facility] <Kalyan Dorado - Last Filed: 02/01/18 15:25>
[2018-02-01] MEDS: Enoxaparin Sodium 40 MG/0.4 ML SYRINGE SC SCH (09:14)
[2018-02-01] MEDS: Donepezil HCl 5 MG TAB PO SCH (09:15)
[2018-02-01] MEDS: Sotalol HCl 80 MG TAB PO SCH ×2 (09:15→20:14)
[2018-02-01] MEDS: Amlodipine 5 MG TAB PO SCH (09:16)
[2018-02-01] MEDS: levETIRAcetam 500 MG TAB PO SCH ×2 (09:16→20:14)
[2018-02-01] MEDS: Magnesium Oxide 400 MG TAB PO SCH ×4 (09:17→20:14)
--- NOTE | 2018-02-01 09:51 | RAD ---
AP VIEW OF THE CHEST: INDICATION: Post cardiac device placement. COMPARISON: Prior study dated 10/29/17. FINDINGS: Chronic lung changes are stable. Dual-lead pacemaker now overlies the left chest wall. No pneumotho rax is evident. Mild cardiomegaly is stable. Vascular calcification of the thoracic aorta is simila r. No acute osseous abnormality is evident. IMPRESSION: Interval placement of a left subclavian chest wall pacemaker. The leads appear intact. The generato r projects in the expected position. No pneumothorax is evident. Other chronic findings as above. POS: [facility]
--- NOTE | 2018-02-01 10:24 | CCL ---
CARDIOLOGY PROCEDURE NOTE: Date: 02/01/18 PROCEDURE: Pacemaker insertion. 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 She also has a hip fract ure that needs to undergo repair. PROCEDURE DETAILS: She was taken to the cardiac laboratory chemical assistant where she was prepped and draped in sterile fashion. Without an y difficulties, the pacemaker was easily placed into the patient using a tie-in lead in the right atr ium and an active fixation lead in the right ventricle. There were no difficulties or complications e ncountered. She was implanted with a dual chamber pacemaker, an Adapta from [employer]. The full dict ated note can be found in the chart. The upper rate was set at 120 and the lower rate will be set at 60.
[2018-02-01] MEDS ORDERED: Polyethylene Glycol 3350 17 GM Packet PO PRN (11:37)
[2018-02-01] MEDS ORDERED: CEFAZOLIN/Water 2 GM/20 ML SYRINGE SLOW IVP SCH (12:00)
[2018-02-01] MEDS: Docusate 100 MG CAP PO SCH (20:15)
[2018-02-01] MEDS: Atorvastatin Calcium 40 MG TAB PO SCH (20:15)
[2018-02-02] MEDS: Lactated Ringer's 1,000 ML IV SCH (02:25)
[2018-02-02 06:33] LABS: INR-International Normal Ratio 1.1; PTT 37.4 SEC (22.9-36.1); Prothrombin Time 14.1 SEC (12.0-14.7)
[2018-02-02 06:35] LABS: Anion Gap 11 mmol/L (10-20); BUN (Urea Nitrogen) 10 mg/dL (9.8-20.1); Calc. Creatinine Clearance 82 mL/min (70-130); Calcium 9.2 mg/dL (7.8-10.44); Carbon Dioxide 31 mmol/L (23-31); Chloride 91 mmol/L (98-107); Estimated GFR-MDRD Greater than 90; Glucose 109 mg/dL (83-110); Potassium 3.4 mmol/L (3.5-5.1); Sodium 130 mmol/L (136-145)
--- NOTE | 2018-02-02 06:58 | PDOC.FM ---
- Subjective Subjective: Patient is resting. She has no complaints. She is at baseline orientation. No acute events overnight. Scheduled for surgery today. - Objective MAR Reviewed: Yes Vital Signs & Weight: Vital Signs (12 hours) Temp Pulse Resp BP BP Pulse Ox 02/02/18 04:00 98.2 F 73 20 150/79 H 93 L 02/02/18 00:00 60 18 02/01/18 20:14 71 141/65 H 02/01/18 20:00 98.3 F 71 18 141/65 H 96 02/01/18 19:00 97 Weight Admit Weight 49.442 kg Weight 57.017 kg I&O: 01/31/18 02/01/18 02/02/18 06:59 06:59 06:59 Intake Total 3388 936 396 Balance 3388 936 396 Result Diagrams: 01/31/18 05:33 02/02/18 05:51 <Sylvia Mcdonald - Last Filed: 02/02/18 11:56> - Objective Vital Signs & Weight: Vital Signs (12 hours) Temp Pulse Resp BP BP Pulse Ox 02/02/18 15:30 98.5 F 63 16 138/65 99 02/02/18 12:35 97.4 F L 61 16 151/75 H 99 02/02/18 08:21 73 167/83 H 02/02/18 08:14 73 02/02/18 08:11 98.5 F 73 20 96 02/02/18 08:10 98.5 F 94 20 167/83 H 96 Weight Admit Weight 49.442 kg Weight 57.017 kg I&O: 02/01/18 02/02/18 02/03/18 06:59 06:59 06:59 Intake Total 936 396 Output Total 1999 Balance 936 396 Result Diagrams: 01/31/18 05:33 02/02/18 05:51 <Kalyan Dorado - Last Filed: 02/02/18 16:52> Phys Exam - Physical Examination Constitutional: NAD HEENT: moist MMs Respiratory: no wheezing, no rales, clear to auscultation bilateral Cardiovascular: RRR, no significant murmur Gastrointestinal: soft distended in suprapubic area. 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 Status: Acute (2) Subcapital fracture of femur Code(s): S72.019A - UNSP INTRACAPSULAR FRACTURE OF UNSP FEMUR, INIT FOR CLOS FX Status: Acute QualifierTitle: Fracture type: closed Laterality: left (3) History of seizure Code(s): Z87.898 - PERSONAL HISTORY OF OTHER SPECIFIED CONDITIONS Status: Chronic (4) Dementia Code(s): F03.90 - UNSPECIFIED DEMENTIA WITHOUT BEHAVIORAL DISTURBANCE Status: Chronic QualifierTitle: Dementia type: unspecified type (5) HLD (hyperlipidemia) Code(s): E78.5 - HYPERLIPIDEMIA, UNSPECIFIED Status: Chronic (6) Hypotension Status: Resolved (7) Hypokalemia Code(s): E87.6 - HYPOKALEMIA Status: Resolved - Plan Plan: 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 They would like to proceed with surgery - Plan to go to OR today. - Pt is does not have the capacity to consent for surgery. Distended Bladder - will place stokes for surgery. - will do voiding trial prior to removal as concerned for urinary retention. Hypomagnesemia - 1.3 yesterday, todays value pendign - replace if low - recheck tomorrow - d/c'd PPI as potential cause of hypomagnesemia, other cause could be antiarrhythmics although hasn't been consistently given Dementia - Continue home medications. - Continue re-orientation measures to reduce delirium. HLD Continue home meds. Hx of Seizure Continue home medications. Hypokalemia, resolved - continue to monitor <Sylvia Mcdonald - Last Filed: 02/02/18 11:56> Attending Addendum - Attending Addendum Date/Time: 02/02/18 8745 I personally evaluated the patient and discussed the management with Dr. Mcdonald. I agree with the History, Examination, Assessment and Plan documented above with any addition or exceptions noted below. I saw her post operatively. She is drowsey but awakens to answer questions. Sister and niece at bedside. Lungs: CTA, Cor: RRR. pacemaker insertions site looks good with mild bruising. A; Operative day ORIF hip fracture. POD#2 pacemaker. Stable P: will begin discharge planning for Inpatient Rehab vs SNF. MD Ehsan <Kalyan Dorado - Last Filed: 02/02/18 16:52>
[2018-02-02] MEDS: Sotalol HCl 80 MG TAB PO SCH ×2 (08:14→20:02)
[2018-02-02 08:15] LABS: Magnesium 1.2 mg/dL (1.6-2.6); Phosphorus 2.2 mg/dL (2.3-4.7)
[2018-02-02] MEDS: Amlodipine 5 MG TAB PO SCH (08:21)
[2018-02-02] MEDS ORDERED: CEFAZOLIN/Water 2 GM/20 ML SYRINGE ONE (09:27)
[2018-02-02] MEDS ORDERED: Fentanyl 100 MCG/2 ML VIAL ONE (09:45)
[2018-02-02] MEDS ORDERED: Dexamethasone 4 mg/ml Vial ONE (09:45)
[2018-02-02] MEDS ORDERED: Midazolam HCl 2 mg/2 ml Vial ONE (09:45)
[2018-02-02] MEDS ORDERED: Ketamine 50 MG/ML VIAL ONE (09:52)
[2018-02-02] MEDS ORDERED: Bupivacaine 0.75% W/DEXTROSE 8.25% 2 ML AMP ONE (09:52)
[2018-02-02] MEDS ORDERED: Lidocaine 1% (PF) 30 ML VIAL ONE (10:13)
[2018-02-02] MEDS ORDERED: Magnesium Sulfate 2 GM in Sodium Chloride 0.9% 100 ML IVPB SCH (10:15)
[2018-02-02] MEDS ORDERED: Magnesium 2 GM/NS 0.9% 100 ML 2 GM in Premix Bag 1 BAG IVPB SCH (10:15)
[2018-02-02] MEDS ORDERED: Potassium Phosphate 9 MMOL in Sodium Chloride 0.9% 100 ML IVPB SCH (10:15)
[2018-02-02] MEDS: Docusate 100 MG CAP PO SCH ×2 (10:39→20:02)
[2018-02-02] MEDS: Donepezil HCl 5 MG TAB PO SCH (10:39)
[2018-02-02] MEDS: levETIRAcetam 500 MG TAB PO SCH ×2 (10:40→20:03)
[2018-02-02] MEDS: Magnesium Oxide 400 MG TAB PO SCH ×4 (10:40→20:03)
[2018-02-02] MEDS: Metamucil PACK PO SCH (10:40)
[2018-02-02] MEDS ORDERED: Ondansetron HCl/PF 4 MG/2 ML Vial IVP PRN (11:01)
[2018-02-02] MEDS ORDERED: Promethazine HCl 25 MG/ML VIAL SLOW IVP PRN (11:01)
[2018-02-02] MEDS ORDERED: Promethazine HCl 25 MG/ML VIAL IM PRN (11:01)
[2018-02-02] MEDS ORDERED: Ropivacaine 0.5% HCl/PF (150 MG/30 ML VIAL) ONE (14:51)
[2018-02-02] MEDS ORDERED: PHENYLEPHRINE-NS 100 MCG/ML 10 ML SYRINGE ONE (14:54)
[2018-02-02] MEDS ORDERED: Ondansetron HCl/PF 4 MG/2 ML Vial ONE (14:54)
[2018-02-02] MEDS: traMADol HCl 50 MG TAB PO PRN (19:37)
[2018-02-02] MEDS: Atorvastatin Calcium 40 MG TAB PO SCH (20:03)
--- NOTE | 2018-02-02 22:38 | PDOC.CTH ---
Cardiology Progress Note - Subjective She is more alert today. She underwent surgical repair of her fracture hip today and appears to be doing quite well despite her other medical problems. Her sister was present today and the plan is to transfer her back to [facility] when she is table. - Objective Vital Signs Temp Pulse Resp BP BP Pulse Ox 02/02/18 20:02 75 131/61 02/02/18 20:00 97.6 F 75 18 131/61 02/02/18 15:30 98.5 F 63 16 138/65 99 02/02/18 12:35 97.4 F L 61 16 151/75 H 99 Admit Weight 109 lb Weight 125 lb 11.2 oz 02/01/18 02/02/18 02/03/18 06:59 06:59 06:59 Intake Total 299 177 5722 Output Total 3325 Balance 936 396 -2255 - Physical Examination General/Neuro: alert & oriented x3 Neck: no JVD present Lungs: CTA Heart: RRR Abdomen: NT/ND - Labs Result Diagrams: 01/31/18 05:33 02/02/18 05:51 Troponin/CKMB CK-MB (CK-2) 1.5 ng/mL (0-6.6) 01/23/18 09:53 Troponin I Less than 0.010 ng/mL (< 0.028) 01/23/18 15:49 - Assessment/Plan 1. Afib RVR, back in sinus. Maintaining sinus on sotolol. Dual chamber pacemaker placed. 2. Sinus pauses (5.8 seconds longest). No further events. 3. Tachy-Aleksey syndrome 4. Dementia 5. Hip fracture. Repaired today.
[2018-02-03 04:50] LABS: INR-International Normal Ratio 1.1; Prothrombin Time 14.6 SEC (12.0-14.7)
[2018-02-03 04:51] LABS: PTT 32.7 SEC (22.9-36.1)
--- NOTE | 2018-02-03 06:59 | PDOC.FM ---
- Subjective Subjective: Went for ortho surgery yesterday. Patient reports feeling "good." Tele strips show pulse in 60s-70s all night, the lower limit of her typical baseline. Around 1800 yesterday went into aflutter, but converted to NSR later and currently NSR as of this morning. NAEO. - Objective Vital Signs & Weight: Vital Signs (12 hours) Temp Pulse Resp BP BP Pulse Ox 02/03/18 02:56 96.6 F L 60 18 112/60 97 02/03/18 00:05 80 18 100/58 L 97 02/02/18 20:02 75 131/61 02/02/18 20:00 97.6 F 75 18 131/61 95 Weight Admit Weight 49.442 kg Weight 56.382 kg I&O: 02/01/18 02/02/18 02/03/18 06:59 06:59 06:59 Intake Total 306 230 3933 Output Total 3725 Balance 936 396 -3607 Result Diagrams: 01/31/18 05:33 02/03/18 05:39 EKG Reviewed by me: Yes (One episode of aflutter yesterday evening, converted to NSR) <Yelena Fernandez - Last Filed: 02/03/18 13:39> - Objective Vital Signs & Weight: Vital Signs (12 hours) Temp Pulse Pulse Pulse Pulse Resp BP 02/03/18 16:00 61 02/03/18 13:01 60 60 65 122/73 02/03/18 12:00 97.7 F 65 16 02/03/18 10:21 66 BP BP BP Pulse Ox 02/03/18 16:00 133/60 02/03/18 13:01 164/69 H 129/63 02/03/18 12:00 129/63 95 02/03/18 10:21 Weight Admit Weight 49.442 kg Weight 56.382 kg I&O: 02/02/18 02/03/18 02/04/18 06:59 06:59 06:59 Intake Total 396 1606 Output Total 3725 Balance 396 -0105 Result Diagrams: 01/31/18 05:33 02/03/18 05:39 <Kalyan Dorado - Last Filed: 02/03/18 20:24> Phys Exam - Physical Examination Constitutional: NAD HEENT: moist MMs Cardiovascular: RRR Musculoskeletal: pulses present Deviation from normal: A&O x1 (to person). Pleasant to talk to but remains disoriented to time, place and situation. Deviation from normal: Left leg was non tender to touch. Skin stained from betadine yesterday. 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 SYNDROME Status: Acute (3) History of seizure Code(s): Z87.898 - PERSONAL HISTORY OF OTHER SPECIFIED CONDITIONS Status: Chronic (4) Hypokalemia Code(s): E87.6 - HYPOKALEMIA Status: Resolved (5) Altered mental status Code(s): R41.82 - ALTERED MENTAL STATUS, UNSPECIFIED Status: Acute QualifierTitle: Altered mental status type: delirium Qualified Code(s): R41.0 - Disorientation, unspecified (6) Atrial fibrillation with RVR Code(s): I48.91 - UNSPECIFIED ATRIAL FIBRILLATION Status: Chronic (7) Dementia Code(s): F03.90 - UNSPECIFIED DEMENTIA WITHOUT BEHAVIORAL DISTURBANCE Status: Chronic QualifierTitle: Dementia type: unspecified type (8) HLD (hyperlipidemia) Code(s): E78.5 - HYPERLIPIDEMIA, UNSPECIFIED Status: Chronic (9) HTN (hypertension) Code(s): I10 - ESSENTIAL (PRIMARY) HYPERTENSION Status: Chronic - Plan Plan: Tachy-Aleksey Syndrome - Pt with pacemaker in place - on home dose Sotalol, has been rate controlled in the 60s-70s since yesterday evening (one brief episode of aflutter around [id number] yesterday) - Cardiology on the case - Resumed lovenox Subcapital Femur Fx - Surgery yesterday Distended Bladder - will place stokes for surgery. - will do voiding trial prior to removal as concerned for urinary retention. Hypomagnesemia - 1.4 today despite being on MgO QID. Will replace - Recheck Mg at 1700 - d/c'd PPI as potential cause of hypomagnesemia, other cause could be antiarrhythmics although hasn't been consistently given Dementia - Continue home medications. - Continue re-orientation measures to reduce delirium. HLD Continue home meds. Hx of Seizure Continue home medications. Hypokalemia, resolved - continue to monitor Dispo: Will talk to case management about placement Discussed plan with Dr. Dorado <Yelena Fernandez - Last Filed: 02/03/18 13:39> Attending Addendum - Attending Addendum Date/Time: 02/03/182020 I personally evaluated the patient and discussed the management with Dr. Valerie Fernandez. I agree with the History, Examination, Assessment and Plan documented above with any addition or exceptions noted below. Appears to be maintaining NSR on sotolol. Only c/o hip soreness. Lungs: CTA, Cor: RRR. Abdomen: soft non-tender. Left hip dressing in place, clean and dry. A: Stable A-fib RVR and tachy-aleksey syndrome controlled with sotolol and permanent pacemaker, Dementia, P: Advance PT per ortho recommendations and work on discharge planning/ placement per case mgt and family. [facility] <Kalyan Dorado - Last Filed: 02/03/18 20:24>
[2018-02-03 07:39] LABS: Anion Gap 12 mmol/L (10-20); BUN (Urea Nitrogen) 14 mg/dL (9.8-20.1); Calc. Creatinine Clearance 76 mL/min (70-130); Calcium 9.3 mg/dL (7.8-10.44); Carbon Dioxide 35 mmol/L (23-31); Chloride 92 mmol/L (98-107); Estimated GFR-MDRD Greater than 90; Glucose 106 mg/dL (83-110); Potassium 3.7 mmol/L (3.5-5.1); Sodium 135 mmol/L (136-145)
[2018-02-03 07:58] LABS: Magnesium 1.4 mg/dL (1.6-2.6)
[2018-02-03] MEDS: levETIRAcetam 500 MG TAB PO SCH ×2 (10:21→20:42)
[2018-02-03] MEDS: Sotalol HCl 80 MG TAB PO SCH ×2 (10:21→20:41)
[2018-02-03] MEDS: Donepezil HCl 5 MG TAB PO SCH (10:21)
[2018-02-03] MEDS: Magnesium Oxide 400 MG TAB PO SCH ×4 (10:21→20:42)
[2018-02-03] MEDS: Amlodipine 5 MG TAB PO SCH (10:21)
[2018-02-03] MEDS: Docusate 100 MG CAP PO SCH ×2 (10:22→20:42)
[2018-02-03] MEDS: Metamucil PACK PO SCH (10:23)
[2018-02-03] MEDS: traMADol HCl 50 MG TAB PO PRN ×2 (12:22→14:13)
--- NOTE | 2018-02-03 12:54 | PDOC.CTH ---
Cardiology Progress Note - Subjective Awake, multiple family members at bedside. Denies chest pain, shortness of breath. Complains of left hip pain only. States she is cold. No N/V/D. No overnight events. Awaiting PT for 1st therapy session post-THR. - Objective Vital Signs Temp Pulse Resp BP Pulse Ox 02/03/18 10:21 66 02/03/18 08:00 96.8 F L 66 16 114/56 L 93 L 02/03/18 02:56 96.6 F L 60 18 112/60 97 Admit Weight 109 lb Weight 124 lb 4.8 oz 02/02/18 02/03/18 02/04/18 06:59 06:59 06:59 Intake Total 396 1606 Output Total 3725 Balance 396 -3419 - Physical Examination General/Neuro: alert & oriented x3 Neck: no JVD present Lungs: unlabored respirations Heart: RRR Abdomen: NT/ND, soft Other PE findings: Left SC PM pocket s/ hemtoma, slight ecchymosis, no drainage - Telemetry Telemetry Rhythm: APaced/VSensed - Labs Result Diagrams: 01/31/18 05:33 02/03/18 05:39 Troponin/CKMB CK-MB (CK-2) 1.5 ng/mL (0-6.6) 01/23/18 09:53 Troponin I Less than 0.010 ng/mL (< 0.028) 01/23/18 15:49 - Assessment/Plan 1. Afib RVR- maintaining sinus on sotalol. 2. Sinus pauses (5.8 seconds longest). No further events. 3. Tachy-Aleksey syndrome-s/p dual chamber PM placement 02/01 4. Dementia 5. Hip fracture. Repaired 02/02
[2018-02-03] MEDS ORDERED: Magnesium 2 GM/NS 0.9% 100 ML 2 GM in Premix Bag 1 BAG IVPB SCH (14:00)
[2018-02-03] MEDS: Atorvastatin Calcium 40 MG TAB PO SCH (20:42)
[2018-02-04] MEDS: Lactated Ringer's 1,000 ML IV SCH (00:27)
[2018-02-04] MEDS: traMADol HCl 50 MG TAB PO PRN ×2 (00:46→09:47)
[2018-02-04 04:16] LABS: Prothrombin Time 13.4 SEC (12.0-14.7)
[2018-02-04 04:17] LABS: Anion Gap 10 mmol/L (10-20); BUN (Urea Nitrogen) 12 mg/dL (9.8-20.1); Calc. Creatinine Clearance 73 mL/min (70-130); Calcium 8.5 mg/dL (7.8-10.44); Carbon Dioxide 36 mmol/L (23-31); Chloride 92 mmol/L (98-107); Estimated GFR-MDRD Greater than 90; Glucose 92 mg/dL (83-110); Potassium 3.6 mmol/L (3.5-5.1); Sodium 134 mmol/L (136-145)
--- NOTE | 2018-02-04 05:56 | PDOC.FM ---
- Objective Vital Signs & Weight: Vital Signs (12 hours) Temp Pulse Resp BP BP Pulse Ox 02/04/18 03:09 98.4 F 60 19 140/67 95 02/03/18 23:36 128/60 02/03/18 20:41 61 100/50 L 02/03/18 20:00 98.7 F 61 14 98 02/03/18 19:50 98.7 F 61 14 100/50 L 98 Weight Admit Weight 49.442 kg Weight 56.382 kg I&O: 02/02/18 02/03/18 02/04/18 06:59 06:59 06:59 Intake Total 396 1606 930 Output Total 3725 450 Balance 396 -2119 480 Result Diagrams: 01/31/18 05:33 02/04/18 03:41 <Yelena Fernandez - Last Filed: 02/04/18 05:59> - Objective Vital Signs & Weight: Vital Signs (12 hours) Temp Pulse Pulse Pulse Resp BP BP 02/04/18 16:00 97.7 F 60 16 02/04/18 12:11 65 60 138/60 111/55 L 02/04/18 12:00 97.6 F 65 16 02/04/18 11:07 98.0 F 62 16 02/04/18 09:45 62 02/04/18 09:43 62 02/04/18 09:38 60 60 155/72 H 125/58 L 02/04/18 08:59 98.0 F 62 16 BP Pulse Ox Pulse Ox 02/04/18 16:00 136/63 98 02/04/18 12:11 02/04/18 12:00 138/60 94 L 02/04/18 11:07 94 L 02/04/18 09:45 02/04/18 09:43 02/04/18 09:38 98 02/04/18 08:59 125/61 94 L Weight Admit Weight 49.442 kg Weight 54.431 kg I&O: 02/03/18 02/04/18 02/05/18 06:59 06:59 06:59 Intake Total 1606 1330 Output Total 3725 725 Balance -2119 605 Result Diagrams: 01/31/18 05:33 02/04/18 03:41 <Kalyan Dorado - Last Filed: 02/04/18 18:30> Dx/Plan (1) Subcapital fracture of femur Code(s): S72.019A - UNSP INTRACAPSULAR FRACTURE OF UNSP FEMUR, INIT FOR CLOS FX Status: Acute QualifierTitle: Fracture type: closed Laterality: left (2) 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 SYNDROME Status: Acute (3) History of seizure Code(s): Z87.898 - PERSONAL HISTORY OF OTHER SPECIFIED CONDITIONS Status: Chronic (4) Hypokalemia Code(s): E87.6 - HYPOKALEMIA Status: Resolved (5) Altered mental status Code(s): R41.82 - ALTERED MENTAL STATUS, UNSPECIFIED Status: Acute QualifierTitle: Altered mental status type: delirium Qualified Code(s): R41.0 - Disorientation, unspecified (6) Atrial fibrillation with RVR Code(s): I48.91 - UNSPECIFIED ATRIAL FIBRILLATION Status: Chronic (7) Dementia Code(s): F03.90 - UNSPECIFIED DEMENTIA WITHOUT BEHAVIORAL DISTURBANCE Status: Chronic QualifierTitle: Dementia type: unspecified type (8) HLD (hyperlipidemia) Code(s): E78.5 - HYPERLIPIDEMIA, UNSPECIFIED Status: Chronic (9) HTN (hypertension) Code(s): I10 - ESSENTIAL (PRIMARY) HYPERTENSION Status: Chronic - Plan Plan: Tachy-Aleksey Syndrome/Afib with RVR - s/p pacemaker placement - has maintained NSR and rate controlled in 60s-70s on home dose of sotalol - cardiology following Subcapital Femur Fx -s/p surgery; POD 2 Distended Bladder -Bladder training yesterday before attempting voiding trial today due to concern for urinary retention Hypomagnesemia -2.0 yesterday after given 2g Mg and addition to receiving MgO QID -Will recheck Mg later today - d/c'd PPI as potential cause of hypomagnesemia, other cause could be antiarrhythmics although hasn't been consistently given Dementia - Continue home medications. - Continue re-orientation measures to reduce delirium. HLD Continue HM: atorvastatin Hx of Seizure Continue home medications. Hypokalemia, resolved - continue to monitor HTN -Controlled -Continue HM: Amlodipine Dementia -Continue HM: Aricept DVT ppx: Lovenox Dispo: Will talk to case management about placement Discussed plan with Dr. Dorado <Yelena Fernandez - Last Filed: 02/04/18 05:59> Attending Addendum - Attending Addendum Date/Time: 02/04/18 195 I personally evaluated the patient and discussed the management with Dr. Valerie FERNANDEZ. I agree with the History, Examination, Assessment and Plan documented above with any addition or exceptions noted below. She feels well except for hip pain. Lungs: CTA. Cor: RRR. Family - younger sister and niece at bedside. We discussed discharge planning and agree to wait on some improvement postoperatively and anticipate assistance from case mgt. tomorrow to help decide the best course of action regarding sending her to [place] for rehab vs. rehab in SNF/Inpatient here for 2-3 weeks prior to returning to her home in [place] to live with sister. [facility] <Kalyan Dorado - Last Filed: 02/04/18 18:30>
--- NOTE | 2018-02-04 09:28 | PDOC.CTH ---
Cardiology Progress Note - Subjective Resting, awakens easily. States hip pain is better today, denies acute complaints. Denies chest pain, shortness of breath. No family at bedside. No overnight cardiac events. - Objective Vital Signs Temp Pulse Resp BP Pulse Ox 02/04/18 08:59 98.0 F 62 16 125/61 94 L 02/04/18 03:09 98.4 F 60 19 140/67 95 02/03/18 23:36 128/60 Admit Weight 109 lb Weight 120 lb 02/03/18 02/04/18 02/05/18 06:59 06:59 06:59 Intake Total 1606 1330 Output Total 3725 725 Balance -2119 605 - Physical Examination General/Neuro: NAD, other: (Drowsy, quick to fall asleep) Neck: no JVD present Lungs: CTA, unlabored respirations, other: (Decreased BS post BLL) Heart: RRR Abdomen: NT/ND, soft - Telemetry Telemetry Rhythm: APaced/VSensed 60s - Labs Result Diagrams: 01/31/18 05:33 02/04/18 03:41 Troponin/CKMB CK-MB (CK-2) 1.5 ng/mL (0-6.6) 01/23/18 09:53 Troponin I Less than 0.010 ng/mL (< 0.028) 01/23/18 15:49 - Assessment/Plan 1. Afib c/ RVR- maintaining sinus on sotalol. 2. Sinus pauses (5.8 seconds longest). No further events since PM placement 3. Tachy-Aleksey syndrome-s/p dual chamber PM placement 02/01 4. Dementia-stable. 5. Hip fracture- Repaired 02/02, starting PT/OT
[2018-02-04] MEDS: Amlodipine 5 MG TAB PO SCH (09:43)
[2018-02-04] MEDS: Docusate 100 MG CAP PO SCH ×2 (09:44→21:03)
[2018-02-04] MEDS: levETIRAcetam 500 MG TAB PO SCH ×2 (09:44→21:04)
[2018-02-04] MEDS: Donepezil HCl 5 MG TAB PO SCH (09:44)
[2018-02-04] MEDS: Sotalol HCl 80 MG TAB PO SCH ×2 (09:45→21:03)
[2018-02-04] MEDS: Metamucil PACK PO SCH (09:47)
[2018-02-04] MEDS: Magnesium Oxide 400 MG TAB PO SCH ×4 (09:48→21:03)
[2018-02-04] MEDS ORDERED: Ketorolac Tromethamine 10 MG TAB PO SCH (13:30)
[2018-02-04] MEDS: Ketorolac Tromethamine 10 MG TAB PO SCH (17:32)
[2018-02-04] MEDS: Atorvastatin Calcium 40 MG TAB PO SCH (21:03)
[2018-02-05] MEDS: Ketorolac Tromethamine 10 MG TAB PO SCH ×4 (01:13→17:26)
[2018-02-05 04:40] LABS: INR-International Normal Ratio 1.1; Prothrombin Time 13.9 SEC (12.0-14.7)
[2018-02-05 04:47] LABS: Anion Gap 10 mmol/L (10-20); BUN (Urea Nitrogen) 9 mg/dL (9.8-20.1); Calc. Creatinine Clearance 78 mL/min (70-130); Carbon Dioxide 36 mmol/L (23-31); Chloride 94 mmol/L (98-107); Estimated GFR-MDRD Greater than 90; Glucose 100 mg/dL (83-110); Magnesium 1.2 mg/dL (1.6-2.6); Potassium 3.8 mmol/L (3.5-5.1); Sodium 136 mmol/L (136-145)
--- NOTE | 2018-02-05 06:51 | PDOC.FM ---
- Subjective Subjective: Patient is resting comfortably this am. She does report some pain in her abd and needs to have a BM. No pain reported in her L hip. - Objective MAR Reviewed: Yes Vital Signs & Weight: Vital Signs (12 hours) Temp Pulse Resp BP Pulse Ox 02/05/18 04:32 98 F 60 18 130/63 95 02/04/18 21:03 60 02/04/18 20:00 98.6 F 60 23 H 121/62 96 Weight Admit Weight 49.442 kg Weight 53.252 kg I&O: 02/03/18 02/04/18 02/05/18 06:59 06:59 06:59 Intake Total 1606 1330 1290 Output Total 3725 725 1950 Balance -0017 044 -782 Result Diagrams: 01/31/18 05:33 02/05/18 04:24 <Sylvia Mcdonald - Last Filed: 02/05/18 09:17> - Objective Vital Signs & Weight: Vital Signs (12 hours) Temp Pulse Resp BP BP Pulse Ox 02/05/18 09:11 60 179/72 H 02/05/18 09:09 60 179/72 H 02/05/18 08:00 98.3 F 60 18 179/72 H 95 02/05/18 04:32 98 F 60 18 130/63 95 Weight Admit Weight 49.442 kg Weight 53.252 kg I&O: 02/04/18 02/05/18 02/06/18 06:59 06:59 06:59 Intake Total 1330 1290 Output Total 725 1950 650 Balance 607 -003 -650 Result Diagrams: 01/31/18 05:33 02/05/18 04:24 <Trav Lind - Last Filed: 02/05/18 12:13> Phys Exam - Physical Examination Constitutional: NAD HEENT: moist MMs Respiratory: no wheezing, no rales, clear to auscultation bilateral 4/6 systolic murmur heard best at tricuspid area Gastrointestinal: soft ttp throughout, no guarding or rebound tenderness, hypoactive BS Musculoskeletal: no edema Neurological: moves all 4 limbs Deviation from normal: AOx1 <Sylvia Mcdonald - Last Filed: 02/05/18 09:17> Dx/Plan (1) Tachy-kameron syndrome Code(s): I49.5 - SICK SINUS SYNDROME Status: Acute (2) Subcapital fracture of femur Code(s): S72.019A - UNSP INTRACAPSULAR FRACTURE OF UNSP FEMUR, INIT FOR CLOS FX Status: Acute QualifierTitle: Fracture type: closed Laterality: left (3) History of seizure Code(s): Z87.898 - PERSONAL HISTORY OF OTHER SPECIFIED CONDITIONS Status: Chronic (4) Dementia Code(s): F03.90 - UNSPECIFIED DEMENTIA WITHOUT BEHAVIORAL DISTURBANCE Status: Chronic QualifierTitle: Dementia type: unspecified type (5) HLD (hyperlipidemia) Code(s): E78.5 - HYPERLIPIDEMIA, UNSPECIFIED Status: Chronic (6) Hypotension Status: Resolved (7) Hypokalemia Code(s): E87.6 - HYPOKALEMIA Status: Resolved (8) Atrial fibrillation with RVR Code(s): I48.91 - UNSPECIFIED ATRIAL FIBRILLATION Status: Resolved - Plan Plan: Tachy-Kameron Syndrome/Afib with RVR - s/p pacemaker placement - has maintained NSR and rate controlled in 60s-70s on home dose of sotalol - cardiology following - have discussion with family on resuming Coumadin. HASBLED (3- 5.8% risk of major bleeding per year) vs [id number] (6- 9.7% stroke risk per year) Subcapital Femur Fx - s/p surgery; POD 2 - pain well controlled - continue PT/OT - CM for placement in SNF Distended Bladder - Attempt to d/c stokes today, will monitor for urinary retention Hypomagnesemia - 2.0 yesterday after given 2g Mg and addition to receiving MgO QID, 1.2 today, again give 2g IV - Recheck tomorrow - d/c'd PPI a couple days ago as potential cause of hypomagnesemia, other cause could be antiarrhythmics although hasn't been consistently given Metabolic Alkalosis - bicarb 36 today - IVF running at 30ml/hr for KVO due to hard stick, consider d/c KVO - no distress - continue to monitor Constipation - no BM documented, abd pain today - will give dulcolax PO in addition to colace and miralax - if no BM today, will give enema tomorrow Dementia - Continue home medications. - Continue re-orientation measures to reduce delirium. HLD Continue HM: atorvastatin Hx of Seizure Continue home medications: Keppra Hypokalemia, resolved - continue to monitor HTN -Controlled -Continue HM: Amlodipine Dementia -Continue HM: Aricept DVT ppx: Lovenox Dispo: d/c pending placement <Sylvia Mcdonald - Last Filed: 02/05/18 09:17> Attending Addendum - Attending Addendum Date/Time: 02/05/18 1210 I personally evaluated the patient and discussed the management with Dr. Mcdonald I agree with the History, Examination, Assessment and Plan documented above with any addition or exceptions noted below.Met with Patient sister today discussed risk benefits of anticoagulation today. Magnesium refractory to po RX discussed possible secondary to PPI and may take a while to resolve. Working toward placement. Candid discussion with family regardless of options care home prognosis remains guarded. Sister noted marked decline in patients health since being in [place] living with her and attending outpatient daycare. <Trav Lind - Last Filed: 02/05/18 12:13>
--- NOTE | 2018-02-05 08:29 | OP ---
DATE OF SURGERY: 02/02/2018. PREOPERATIVE DIAGNOSIS: Left femoral neck fracture. POSTOPERATIVE DIAGNOSIS: Left femoral neck fracture. SURGICAL PROCEDURE: Left hip hemiarthroplasty. ANESTHESIA: General. SURGEON: Cliff Carr M.D. MORTICIAN HELPER: Veena Caceres PA-C ESTIMATED BLOOD LOSS: 200 mL IMPLANTS: The DePuy system was used with a [place] 6 stem, a 28 x 46 bipolar cup and a +1.5 head. COMPLICATIONS: None. DRAINS: None. SPECIMEN: None. OUTCOME: Satisfactory. INDICATIONS: Ms. Kessler is an 82-year-old lady status post ground level fall sustaining a femoral ne ck fracture. The patient also has a significant history of heart disease. We have been awaiting car diac clearance to allow for hemiarthroplasty of the hip. The patient has now had a pacemaker placed and is felt to be medical optimized for surgery. Informed consent has been obtained. I believe all questions have been answered. PROCEDURE IN DETAIL: After the induction of general anesthesia, the patient was positioned in the [facility] lateral decubitus position and then a sterile prep and drape was performed in the left lower extr emity. Next, a curvilinear incision was made centered over the greater trochanter. After the skin w as sharply incised, dissection was carried down to the underlying tensor fascia and fascia tanya. Thi s structure was incised in line with the skin incision and reflected anteriorly and posteriorly gaini ng access to the trochanteric bursa and the short external rotators. An elevator was passed under th e abductors and the piriformis identified, released, tagged and reflected posteriorly along with the inferior and superior gemelli and obturator internus. At this point, a T capsulotomy was performed a nd then the hip dislocated. The femoral head removed with a T handle corkscrew device and then an os cillating saw was used to make a femoral neck cut. Next, the proximal femur was prepared first with a centralizing awl followed by a lateralizing reamer and then progressive awl up to a size 6 were pas sed down the femur. This was then followed by broaching starting at size 3 continuing up to size 6 t o give a good fit, fill and excellent stability. Next, a trial reduction was performed on this trial broach with a standard +1.5 head and there was found to be good stability and what was felt to be re storation of leg lengths. As such, all the trial components were then removed from the limb. The wo und was irrigated with 3 liters of normal saline using Pulsavac and then the size 6 [place] stem was i nserted followed by application of the bipolar head. The hip was reduced and found to have excellent stability. The wound again irrigated and then subsequently closed with #2 Vicryl used for the capsu lar closure followed by a #2 Vicryl to reattach the piriformis, #2 Vicryl also used for the fascia la ta and tensor fascia. This was followed by 0 Vicryl for Torri's fascia, 2-0 Vicryl subcutaneously, and then herber for the skin. A Xeroform gauze and tape dressing was applied to the thigh and then the patient was transferred to recovery room in stable condition. There were no complications. She tolerated the procedure well.
[2018-02-05 09:04] VITALS: BMI 20.1
[2018-02-05] MEDS: Lactated Ringer's 1,000 ML IV SCH ×2 (09:09→20:49)
[2018-02-05] MEDS: Amlodipine 5 MG TAB PO SCH (09:09)
[2018-02-05] MEDS: levETIRAcetam 500 MG TAB PO SCH ×2 (09:10→20:44)
[2018-02-05] MEDS: Docusate 100 MG CAP PO SCH ×2 (09:10→20:45)
[2018-02-05] MEDS: Donepezil HCl 5 MG TAB PO SCH (09:10)
[2018-02-05] MEDS: Sotalol HCl 80 MG TAB PO SCH ×2 (09:11→20:47)
[2018-02-05] MEDS: Metamucil PACK PO SCH (09:11)
[2018-02-05] MEDS: Magnesium Oxide 400 MG TAB PO SCH ×4 (09:11→20:45)
[2018-02-05] MEDS: traMADol HCl 50 MG TAB PO PRN (09:12)
[2018-02-05] MEDS ORDERED: Bisacodyl 5 MG TAB PO PRN (09:24)
[2018-02-05] MEDS ORDERED: Bisacodyl 5 MG TAB PO SCH ×2 (09:30)
[2018-02-05] MEDS ORDERED: Magnesium 2 GM/NS 0.9% 100 ML 2 GM in Premix Bag 1 BAG IVPB SCH (09:30)
--- NOTE | 2018-02-05 09:53 | RAD ---
LEFT HIP 2 VIEWS: HISTORY: Postop. COMPARISON: Hip radiographs 01/31/18. FINDINGS: Satisfactory postoperative appearance of the left hip arthroplasty. There is heterotopic ossificatio n. Expected postoperative gas and edema. IMPRESSION: Satisfactory postoperative appearance. POS: KENDELL
--- NOTE | 2018-02-05 18:18 | PDOC.CTH ---
Cardiology Progress Note - Subjective She is doing well. She had her hip repaired without issues. - Objective Vital Signs Temp Pulse Pulse Resp BP BP BP 02/05/18 16:00 98.8 F 62 18 137/98 H 02/05/18 13:53 61 109/53 L 02/05/18 12:00 98.0 F 60 18 140/62 02/05/18 09:11 60 179/72 H 02/05/18 09:09 60 179/72 H 02/05/18 08:00 98.3 F 60 18 179/72 H Pulse Ox Pulse Ox 02/05/18 16:00 99 02/05/18 13:53 95 02/05/18 12:00 95 02/05/18 09:11 02/05/18 09:09 02/05/18 08:00 95 Admit Weight 109 lb Weight 117 lb 6.4 oz 02/04/18 02/05/18 02/06/18 06:59 06:59 06:59 Intake Total 1330 1290 700 Output Total 725 1950 650 Balance 605 -660 50 - Physical Examination General/Neuro: NAD Neck: carotid US brisk, no JVD present Lungs: CTA, unlabored respirations Heart: RRR Abdomen: NT/ND Extremities: other: (no edema) - Telemetry Telemetry Rhythm: A paced. - Labs Result Diagrams: 01/31/18 05:33 02/05/18 04:24 Troponin/CKMB CK-MB (CK-2) 1.5 ng/mL (0-6.6) 01/23/18 09:53 Troponin I Less than 0.010 ng/mL (< 0.028) 01/23/18 15:49 - Assessment/Plan 1. Paroxysmal Afib 2. Sinus pauses (5.8 seconds longest) 3. Tachy-Aleksey syndrome 4. Dementia 5. Hip fracture, s/p repair. 6. S/P PPM placement. normal functioning. PLAN: - No new recs. - May discharge any time from cardiac perspective. - Follow up in the device clinic. - Will sign off. Please call with any questions.
[2018-02-05] MEDS: Atorvastatin Calcium 40 MG TAB PO SCH (20:45)
[2018-02-06] MEDS: Ketorolac Tromethamine 10 MG TAB PO SCH ×2 (03:30→06:16)
[2018-02-06 04:40] LABS: PTT 37.6 SEC (22.9-36.1); Prothrombin Time 13.5 SEC (12.0-14.7)
[2018-02-06 05:13] LABS: Anion Gap 9 mmol/L (10-20); BUN (Urea Nitrogen) 8 mg/dL (9.8-20.1); Calc. Creatinine Clearance 76 mL/min (70-130); Calcium 8.8 mg/dL (7.8-10.44); Carbon Dioxide 36 mmol/L (23-31); Chloride 93 mmol/L (98-107); Estimated GFR-MDRD Greater than 90; Glucose 98 mg/dL (83-110); Potassium 3.6 mmol/L (3.5-5.1); Sodium 134 mmol/L (136-145)
--- NOTE | 2018-02-06 07:12 | PDOC.FM ---
- Subjective Subjective: Patient is resting comfortably this morning. She reports some mild pain. Overnight, patient had some urinary retention requiring straight cath with about 450 out. Family discussion yesterday over discharge planning. Family agreeable to SNF facility for rehab prior to moving to [place]. Also discussed anticoagulation with family and they are unsure about their decision at this time. Will address again today. - Objective MAR Reviewed: Yes Vital Signs & Weight: Vital Signs (12 hours) Temp Pulse Resp BP BP Pulse Ox 02/06/18 04:00 98.6 F 60 12 137/64 95 02/05/18 23:28 98.1 F 60 19 115/56 L 97 02/05/18 20:47 61 107/55 L 02/05/18 20:06 98.1 F 61 18 107/55 L 95 02/05/18 20:00 98.1 F 60 19 95 Weight Admit Weight 49.442 kg Weight 52.163 kg I&O: 02/05/18 02/06/18 02/07/18 06:59 06:59 06:59 Intake Total 1290 1281 Output Total 1950 1075 Balance -660 206 Result Diagrams: 01/31/18 05:33 02/06/18 04:13 <Sylvia Mcdonald - Last Filed: 02/06/18 09:17> - Objective Vital Signs & Weight: Vital Signs (12 hours) Temp Pulse Pulse Resp BP BP BP 02/06/18 11:33 99.1 F 60 16 02/06/18 09:35 98.2 F 60 16 02/06/18 08:55 60 134/62 149/67 H 02/06/18 08:28 60 167/71 H 02/06/18 07:15 98.2 F 61 18 BP Pulse Ox Pulse Ox Pulse Ox 02/06/18 11:33 121/57 L 97 02/06/18 09:35 94 L 02/06/18 08:55 92 L 93 L 02/06/18 08:28 02/06/18 07:15 98 Weight Admit Weight 49.442 kg Weight 52.163 kg I&O: 02/05/18 02/06/18 02/07/18 06:59 06:59 06:59 Intake Total 1290 1281 Output Total 1950 1075 Balance -660 206 Result Diagrams: 01/31/18 05:33 02/06/18 04:13 <Nela Bhagat - Last Filed: 02/06/18 17:27> Phys Exam - Physical Examination Constitutional: NAD HEENT: moist MMs Respiratory: no wheezing, no rales Cardiovascular: RRR 4/6 systolic murmur at tricuspid area Gastrointestinal: soft, non-tender, no distention trace edema Neurological: moves all 4 limbs Deviation from normal: AOx1, pleasant <Sylvia Mcdonald - Last Filed: 02/06/18 09:17> Dx/Plan (1) Tachy-kameron syndrome Code(s): I49.5 - SICK SINUS SYNDROME Status: Acute (2) Subcapital fracture of femur Code(s): S72.019A - UNSP INTRACAPSULAR FRACTURE OF UNSP FEMUR, INIT FOR CLOS FX Status: Acute QualifierTitle: Fracture type: closed Laterality: left (3) History of seizure Code(s): Z87.898 - PERSONAL HISTORY OF OTHER SPECIFIED CONDITIONS Status: Chronic (4) Dementia Code(s): F03.90 - UNSPECIFIED DEMENTIA WITHOUT BEHAVIORAL DISTURBANCE Status: Chronic QualifierTitle: Dementia type: unspecified type (5) HLD (hyperlipidemia) Code(s): E78.5 - HYPERLIPIDEMIA, UNSPECIFIED Status: Chronic (6) Hypotension Status: Resolved (7) Hypokalemia Code(s): E87.6 - HYPOKALEMIA Status: Resolved (8) Atrial fibrillation with RVR Code(s): I48.91 - UNSPECIFIED ATRIAL FIBRILLATION Status: Resolved (9) Constipation Code(s): K59.00 - CONSTIPATION, UNSPECIFIED Status: Acute (10) Urinary retention Code(s): R33.9 - RETENTION OF URINE, UNSPECIFIED Status: Acute - Plan Plan: Tachy-Kameron Syndrome/Afib with RVR - s/p pacemaker placement - has maintained NSR and rate controlled in 60s-70s on home dose of sotalol - cardiology following - have discussion with family on resuming Coumadin. HASBLED (3- 5.8% risk of major bleeding per year) vs [id number] (6- 9.7% stroke risk per year) Subcapital Femur Fx - s/p surgery; POD 2 - pain well controlled - continue PT/OT - CM for placement in SNF Urinary Retention - will continue bladder scans and consider stokes placement - likely 2/2 medication vs chronic problem. Has had pain medications, anesthesia. No anticholinergics that have been given. Hypomagnesemia - continues to be low, will give 2g IV again - Recheck tomorrow - d/c'd PPI a couple days ago as potential cause of hypomagnesemia, other cause could be antiarrhythmics although hasn't been consistently given Metabolic Alkalosis - bicarb 36 today - IVF running at 30ml/hr for KVO due to hard stick, consider d/c KVO - no distress - continue to monitor Constipation - no BM documented, abd pain today - will give suppository today. Dementia - Continue home medications. - Continue re-orientation measures to reduce delirium. HLD Continue HM: atorvastatin Hx of Seizure Continue home medications: Keppra Hypokalemia, resolved - continue to monitor HTN -Controlled -Continue HM: Amlodipine Dementia -Continue HM: Aricept DVT ppx: Lovenox Dispo: d/c pending placement <Sylvia Mcdonald - Last Filed: 02/06/18 09:17> Attending Addendum - Attending Addendum Date/Time: 02/06/18 8413 I personally evaluated the patient at 1020 am and discussed the management with Dr. Mcdonald I agree with the History, Examination, Assessment and Plan documented above with any addition or exceptions noted below. post op L hip replacement- will need SNF for recovery. Ultimate family goal is to get patient safely to [place] Tachy-kameron syndrome s/p pacemaker- HR stable. Patient was on anticoagulation and will continue to discuss need with cardiology and risk/benefit with patients family. HypoMag- continue to replace. Expect d/c in next 1-2 days. <Nela Bhagat - Last Filed: 02/06/18 17:27>
[2018-02-06] MEDS: Enoxaparin Sodium 40 MG/0.4 ML SYRINGE SC SCH (08:27)
[2018-02-06] MEDS: Sotalol HCl 80 MG TAB PO SCH ×2 (08:28→20:44)
[2018-02-06] MEDS: levETIRAcetam 500 MG TAB PO SCH ×2 (08:29→20:43)
[2018-02-06] MEDS: Docusate 100 MG CAP PO SCH ×2 (08:29→20:45)
[2018-02-06] MEDS: Amlodipine 5 MG TAB PO SCH (08:29)
[2018-02-06] MEDS: Magnesium Oxide 400 MG TAB PO SCH ×4 (08:30→20:44)
[2018-02-06] MEDS: Donepezil HCl 5 MG TAB PO SCH (08:30)
[2018-02-06] MEDS: Metamucil PACK PO SCH (08:40)
[2018-02-06] MEDS ORDERED: Bisacodyl 10 MG SUPP PR SCH (09:45)
[2018-02-06] MEDS ORDERED: Magnesium 2 GM/NS 0.9% 100 ML 2 GM in Premix Bag 1 BAG IVPB SCH (09:45)
[2018-02-06] MEDS: Ibuprofen 200 MG TAB PO SCH ×2 (14:19→21:32)
[2018-02-06] MEDS: Acetaminophen 500 MG TAB PO SCH ×3 (14:19→20:43)
[2018-02-06] MEDS: Lactated Ringer's 1,000 ML IV SCH (19:05)
[2018-02-06] MEDS: Atorvastatin Calcium 40 MG TAB PO SCH (20:43)
[2018-02-06] MEDS: Famotidine 20 MG TAB PO SCH (20:43)
[2018-02-07] MEDS: Acetaminophen 500 MG TAB PO SCH ×5 (01:31→17:25)
[2018-02-07 04:53] LABS: INR-International Normal Ratio 1.1; PTT 30.5 SEC (22.9-36.1); Prothrombin Time 14.4 SEC (12.0-14.7)
[2018-02-07 05:00] LABS: Anion Gap 14 mmol/L (10-20); BUN (Urea Nitrogen) 8 mg/dL (9.8-20.1); Calc. Creatinine Clearance 73 mL/min (70-130); Calcium 9.2 mg/dL (7.8-10.44); Carbon Dioxide 31 mmol/L (23-31); Chloride 96 mmol/L (98-107); Estimated GFR-MDRD Greater than 90; Glucose 95 mg/dL (83-110); Potassium 3.5 mmol/L (3.5-5.1); Sodium 137 mmol/L (136-145)
[2018-02-07] MEDS: Ibuprofen 200 MG TAB PO SCH ×2 (05:42→14:27)
--- NOTE | 2018-02-07 08:14 | PDOC.FM ---
- Subjective Subjective: Patient is resting well this morning. She has just finished eating breakfast. Per nursing staff, slept well. She is complaining of some abdominal pain and the urge to urinate. She had two large BM's since yesterday. She walked to the bathroom with PT yesterday and continues to make progress. She denies pain in her hip. - Objective MAR Reviewed: Yes Vital Signs & Weight: Vital Signs (12 hours) Temp Pulse Resp BP BP Pulse Ox 02/07/18 07:19 98.7 F 60 16 171/74 H 93 L 02/07/18 03:55 98.5 F 60 16 160/70 H 96 02/07/18 00:04 98.5 F 60 16 129/69 92 L 02/06/18 20:44 60 124/68 02/06/18 20:35 98.3 F 60 16 94 L 02/06/18 20:11 98.3 F 60 16 124/68 94 L Weight Admit Weight 49.442 kg Weight 54.975 kg I&O: 02/06/18 02/07/18 02/08/18 06:59 06:59 06:59 Intake Total 1281 Output Total 1075 Balance 206 Result Diagrams: 01/31/18 05:33 02/07/18 04:10 <Sylvia Mcdonald - Last Filed: 02/07/18 08:41> - Objective Vital Signs & Weight: Vital Signs (12 hours) Temp Pulse Resp BP BP Pulse Ox 02/07/18 09:06 61 171/74 H 02/07/18 07:19 98.7 F 60 16 171/74 H 93 L 02/07/18 03:55 98.5 F 60 16 160/70 H 96 02/07/18 00:04 98.5 F 60 16 129/69 92 L Weight Admit Weight 49.442 kg Weight 54.975 kg I&O: 02/06/18 02/07/18 02/08/18 06:59 06:59 06:59 Intake Total 1281 Output Total 1075 Balance 206 Result Diagrams: 01/31/18 05:33 02/07/18 04:10 <Nela Bhagat - Last Filed: 02/07/18 10:11> Phys Exam - Physical Examination Respiratory: no wheezing, no rales Cardiovascular: RRR new squeaky systolic murmur heard best at tricuspid area Gastrointestinal: positive bowel sounds bladder distension, ttp, no guarding Musculoskeletal: no edema, pulses present Neurological: moves all 4 limbs able to lift L leg without significant pain Psychiatric: normal affect Deviation from normal: AOx1 <Sylvia Mcdonald - Last Filed: 02/07/18 08:41> Dx/Plan (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 Status: Acute (2) Subcapital fracture of femur Code(s): S72.019A - UNSP INTRACAPSULAR FRACTURE OF UNSP FEMUR, INIT FOR CLOS FX Status: Acute QualifierTitle: Fracture type: closed Laterality: left (3) History of seizure Code(s): Z87.898 - PERSONAL HISTORY OF OTHER SPECIFIED CONDITIONS Status: Chronic (4) Dementia Code(s): F03.90 - UNSPECIFIED DEMENTIA WITHOUT BEHAVIORAL DISTURBANCE Status: Chronic QualifierTitle: Dementia type: unspecified type (5) HLD (hyperlipidemia) Code(s): E78.5 - HYPERLIPIDEMIA, UNSPECIFIED Status: Chronic (6) Hypotension Status: Resolved (7) Hypokalemia Code(s): E87.6 - HYPOKALEMIA Status: Resolved (8) Atrial fibrillation with RVR Code(s): I48.91 - UNSPECIFIED ATRIAL FIBRILLATION Status: Resolved (9) Constipation Code(s): K59.00 - CONSTIPATION, UNSPECIFIED Status: Acute (10) Urinary retention Code(s): R33.9 - RETENTION OF URINE, UNSPECIFIED Status: Acute - Plan Plan: Tachy-Aleksey Syndrome/Afib with RVR, resolved - s/p pacemaker placement - has maintained NSR and rate controlled in 60s-70s on home dose of sotalol - cardiology following - Family understands risks and benefits of Coumadin. At this point have chosen to d/c coumadin. They are aware that they can change their mind at any time. HASBLED (3- 5.8% risk of major bleeding per year) vs [id number] (6- 9.7% stroke risk per year) Subcapital Femur Fx - s/p surgery; POD 5 - pain well controlled - continue PT/OT - CM for placement in SNF Urinary Retention - will continue bladder scans qshift and consider stokes placement - likely 2/2 medication vs chronic problem. Has had pain medications, anesthesia. No anticholinergics that have been given. - D/c'd toradol 02/06 and switch to ibuprofen and tylenol to reduce retention risk - patient has hx of OAB, hold oxybutinin Hypomagnesemia - repeat pending - 800mg Mag QID - d/c'd PPI a couple days ago as potential cause of hypomagnesemia, other cause could be antiarrhythmics although hasn't been consistently given, also could be chronic depletion from poor PO intake Deconditioning - PT/OT with SNF placement - at baseline was performing ADL's on her own. Protein Calorie Malnutrition - Ensure supplements - poor po intake, about 20% of meals from my perspective - consult supervisor telephone information - Viky to improve appetite Metabolic Alkalosis, improved - bicarb wnl today Constipation, resolved - BM yesterday and today Dementia - Continue home medications. - Continue re-orientation measures to reduce delirium. HLD Continue HM: atorvastatin Hx of Seizure Continue home medications: Keppra Hypokalemia, resolved - continue to monitor HTN -Controlled -Continue HM: Amlodipine Dementia -Continue HM: Aricept DVT ppx: Lovenox Dispo: d/c pending placement <Sylvia Mcdonald - Last Filed: 02/07/18 08:41> Attending Addendum - Attending Addendum Date/Time: 02/07/18 1008 I personally evaluated the patient and discussed the management with Dr. Mcdonald I agree with the History, Examination, Assessment and Plan documented above with any addition or exceptions noted below. Patient is ready for transfer to SNF. Urinary retention- will discuss stokes vs in and out caths with patient sister. Could be multifactoral secondary to anesthesia vs meds vs chronic. s/p L hip replacement- continue PT and SNF until cleared to travel to [facility] with family s/p pacemaker- HR stable. Cards recommends anticoagulation but per family discussions they decline. Will continue to discuss. Hypomagnesemia-improved today. Continue po replacement Dementia- at baseline. Deconditioning- SNF <Nela Bhagat - Last Filed: 02/07/18 10:11>
[2018-02-07] MEDS ORDERED: Megestrol Acetate 40 MG TAB PO SCH (09:00)
[2018-02-07] MEDS: levETIRAcetam 500 MG TAB PO SCH (09:05)
[2018-02-07] MEDS: Donepezil HCl 5 MG TAB PO SCH (09:06)
[2018-02-07] MEDS: Sotalol HCl 80 MG TAB PO SCH (09:06)
[2018-02-07] MEDS: Enoxaparin Sodium 40 MG/0.4 ML SYRINGE SC SCH (09:06)
[2018-02-07] MEDS: Amlodipine 5 MG TAB PO SCH (09:06)
[2018-02-07] MEDS: Docusate 100 MG CAP PO SCH (09:08)
[2018-02-07] MEDS: Magnesium Oxide 400 MG TAB PO SCH ×3 (09:08→17:25)
[2018-02-07] MEDS: Famotidine 20 MG TAB PO SCH (09:08)
[2018-02-07] MEDS: Metamucil PACK PO SCH (09:09)
[2018-02-07 14:54] LABS: Bilirubin Negative (Negative); Blood, Urine Moderate (Negative); Glucose, Urine (Dipstick) Negative (Negative); Leukocyte Large (Negative); Nitrite Negative (Negative); Urobilinogen 0.2 mg/dL (0.2-1.0)
[2018-02-07 14:55] LABS: Clarity Opaque (Clear)
[2018-02-07 15:07] LABS: Specific Gravity, Urine 1.015 (1.002-1.036)
[2018-02-07 15:08] LABS: Protein, Urine (Dipstick) 100 mg/dL (Neg-Trace)
[2018-02-07 15:13] LABS: Bacteria/HPF 2+ HPF (None Seen)
[2018-02-07 15:14] LABS: Hyaline Casts/LPF NONE SEEN LPF (0-3 Hyaline)
[2018-02-07 15:31] VITALS: BP 124/64; TEMP 98.8
[2018-02-07] MEDS ORDERED: Aspirin 81 mg Enteric Coated Tablet PO SCH (21:00)
[2018-02-07] MEDS ORDERED: Nitrofurantoin Monohyd/M-Cryst 100 MG CAP PO SCH (21:00)
== END 2018-02-07 18:25 | DRG 242 ==
LOC: ERS 09:22 → OBSVTOIN 13:26 → 2NO 13:26 → SURG A 02-06 18:12
PROVIDERS: ADMIT Student in an Organized Health Care Education/Training Program; ATTEND Student in an Organized Health Care Education/Training Program
PROC: 0JH606Z Insertion of Pacemaker, Dual Chamber into Chest Subcutaneous Tissue and Fascia, Open Approach (ICD-10-PCS; principal; 2018-02-01)
PROC: 02H63JZ Insertion of Pacemaker Lead into Right Atrium, Percutaneous Approach (ICD-10-PCS; 2018-02-01)
PROC: 02HK3JZ Insertion of Pacemaker Lead into Right Ventricle, Percutaneous Approach (ICD-10-PCS; 2018-02-01)
PROC: 0SRS01Z Replacement of Left Hip Joint, Femoral Surface with Metal Synthetic Substitute, Open Approach (ICD-10-PCS; 2018-02-05)
DX: I49.5 Sick sinus syndrome (principal); S72.012A Unspecified intracapsular fracture of left femur, initial encounter for closed fracture; E46 Unspecified protein-calorie malnutrition; E87.3 Alkalosis; E87.6 Hypokalemia; F03.90 Unspecified dementia, unspecified severity, without behavioral disturbance, psychotic disturbance, mood disturbance, and anxiety; E78.5 Hyperlipidemia, unspecified; I48.0 Paroxysmal atrial fibrillation; I10 Essential (primary) hypertension; E83.42 Hypomagnesemia; R33.9 Retention of urine, unspecified; G40.909 Epilepsy, unspecified, not intractable, without status epilepticus; K59.00 Constipation, unspecified; Z68.20 Body mass index [BMI] 20.0-20.9, adult; Z66 Do not resuscitate; Z87.891 Personal history of nicotine dependence; Z88.5 Allergy status to narcotic agent; Z79.01 Long term (current) use of anticoagulants; Z79.899 Other long term (current) drug therapy; W18.30XA Fall on same level, unspecified, initial encounter; Y92.013 Bedroom of single-family (private) house as the place of occurrence of the external cause
CPT/HCPCS: 33211; 33249; 36415; 36416; 70450; 71045; 80048; 80053; 81001; 81003; 81015; 82553; 83735; 84100; 84146; 84484; 85025; 85610; 85730; 87077; 87086; 87186; 93005; 93798; A4216; A4353; C1785; C1898; G8978-GP-CL; G8979-GP-CJ; G8987-GO-CL; G8987-GO-CM; G8988-GO-CJ; G8988-GO-CK; J0690; J1100; J1160; J1580; J1650; J1885; J2001; J2250; J2270; J2405; J2795; J3010; J3475; J3480; J3490; J7050; S0179